=== PATIENT | male | born 1965 | race Caucasian/White ===

== ENCOUNTER → 2017-11-29 | Outpatient (REF) | payer BC ==
[2017-04-19 11:04] VITALS: BMI 30.5
[~2017-11-29] MED LIST: ASCO-201 PO; BACL-51 PO; BO30S PR; BO60S PR; CEF300 PO; CEFI400C PO; CEFU500T10 PO; CEFU500T50 PO; CEP500 PO; CEPH-13 PO; CEPH250C37 PO; CEPH500C24 PO; CHOL200074 PO; CHOL400C10 PO; CIPR-214 PO; CIPR-344 PO; CITA-128 PO; CLON-298 PO; CYAN10006 SQ; Cephalexin Monohydrate PO; DOXY-228 PO; Docusate Sodium PO; Doxycycline Hyclate PO; ESCI20TA38 PO; FAM20 PO; FERR325C2 PO; FUR20 PO; FURO-47 PO; FURO20TA19 PO; FURO40TA35 PO; Furosemide PO; GABA-549 PO; IBU800 PO; IBUP800T37 PO; IRON18TA2 PO; LEVO-85 PO; LEVO250S7 PO; LEVO250T55 PO; LOR5/325 PO; MULT-865 PO; NAT300I IV; NITR-105 PO; OMEG-36 PO; OMEP-218 PO; ONDA4TAB PO; ONDA4TAB97 PO; Oxycodone Hcl PO; PER PO; POTA20TA85 PO; POTA20TA94 PO; QUET50TA21 PO; REBIF; ROPI0.5T25 PO; ROPI5TAB PO; ROPI5TAB17 PO; SOL5 PO; SOLI10TA8 PO; TRAZ-133 PO; [UNRECOGNIZED DRUG - CODE] PO; [UNRECOGNIZED DRUG - OTHER] PO
== END ==
LOC: ZZSENDIN 18:22
PROVIDERS: ATTEND Family Medicine
DX: L89.620 Pressure ulcer of left heel, unstageable (principal); B95.1 Streptococcus, group B, as the cause of diseases classified elsewhere; B96.89 Other specified bacterial agents as the cause of diseases classified elsewhere
CPT/HCPCS: 87070; 87073; 87077; 87186

== ENCOUNTER → 2017-12-20 | Outpatient (CLI) | payer BC ==
[2017-04-19 11:04] VITALS: BMI 30.5
[~2017-12-20] MED LIST changes: +ASCO-182 PO; +CHOL100058 PO; +CYAN100058; +DIAZ-311 PO; +GADOBENATE 529MG/1ML 15ML VIAL IVP ONE; +[UNRECOGNIZED DRUG - CODE] IJ
--- NOTE | 2017-12-20 10:53 | RADIOLOGY IMAGING REPORT ---
FACILITY: [facility] - [place] PATIENT NAME: Mark Schmidt : 1965 MR: [id number] V: [id number] EXAM DATE: ORDERING PHYSICIAN: CHRISTIAN ALCANTAR TECHNOLOGIST: Location: [facility] - [place] Patient: Mark Schmidt : 1965 Visit/Account:[id number] Date of Sevice: 12/20/2017 The patient was placed on the MRI scanner and nondiagnostic localization images were obtained. Patien t could not proceed with further imaging due to involuntary muscle jerks of the lower extremity. No d iagnostic images were obtained. Report Dictated By: Noel Dunn at 12/20/2017 10:46 AM Report E-Signed By: Noel Dunn at 12/20/2017 10:49 AM WSN:[id number]
== END ==
LOC: MRI 00:55
PROVIDERS: ATTEND Surgery
DX: L97.429 Non-pressure chronic ulcer of left heel and midfoot with unspecified severity (principal)
CPT/HCPCS: 73720; A9577

== ENCOUNTER 2017-12-25 13:48 | Inpatient (IN) | payer BC ==
[2017-04-19 11:04] VITALS: Ht 185.4 cm; Wt 112.9 kg
[~2017-12-25] VITALS: Ht 185.4 cm; Wt 112.9 kg
[~2017-12-25 13:48] MED LIST changes: -GADOBENATE 529MG/1ML 15ML VIAL IVP ONE
[2017-12-25 15:31] VITALS: BP 160/103
[2017-12-25] MEDS ORDERED: QUET50TA21 PO (15:53)
[2017-12-25] MEDS ORDERED: GABA-549 PO (15:53)
[2017-12-25] MEDS ORDERED: ASCO-182 PO (15:53)
[2017-12-25] MEDS ORDERED: CYAN100058 PO (15:53)
[2017-12-25] MEDS ORDERED: CHOL10005 PO (15:53)
--- NOTE | 2017-12-25 16:19 | General Surgery Consultation ---
History of Present Illness Requesting Physician Dr. Bowens, Hospitalist Service Reason for Consult Left heel ulcer Chief Complaint Left heel ulcer History of Present Illness 82-year-old gentleman, wheelchair bound due to multiple sclerosis, has been under my care for about the last 2 weeks with a chronic left heel ulcer on the plantar surface of his heel. My suspicion is that it is a pressure ulcer but he denies this reporting that the way he sits in a wheelchair, there is not pressure on his heel. He has been experiencing increasing swelling and drainage as well as redness. I saw him in the last 2 weeks and ordered an MRI to rule out osteomyelitis but he was unable to plate the MRI because he has chronic spasms related to MS as well as possible restless leg syndrome. I premedicated him with 10 mg of oral Valium but this was not enough. We have also ordered a CT scan of his left foot but this has yet to be completed. He came into my office today and I noted increased edema and erythema around his hindfoot that was spreading. He has recently been treated with 2 courses of antibiotics, a cephalosporin, and Bactrim without improvement. I have asked the hospitalist to admit the patient for treatment of cellulitis and we can complete the CT scan while he is in the hospital and I may need to surgically debride his heel as well. History Problems: (1) Dyssomnia Status: Chronic (2) Neurogenic bladder Status: Chronic (3) Chronic edema Status: Chronic (4) Recurrent UTI Status: Chronic (5) ELIAZAR treated with BiPAP Status: Chronic (6) MS (multiple sclerosis) Status: Chronic (7) Decubitus ulcer, heel Status: Chronic (8) History of appendectomy Status: Resolved (9) History of gastric bypass Status: Resolved Home Meds Reported Medications Quetiapine Fumarate (SEROQUEL) 50 Mg Tablet, 50 MG PO QHS 12/25/17 Gabapentin (GABAPENTIN) 300 Mg Capsule, 300 MG PO DAILY, CAPSULE 12/25/17 Cyanocobalamin (Vitamin B-12) (Vitamin B-12) 1,000 Mcg Capsule, 1000 MCG PO DAILY 12/25/17 Cholecalciferol (Vitamin D3) (VITAMIN D3) 1,000 Unit Tablet, 1000 UNIT PO DAILY , TAB 12/25/17 Ascorbic Acid (VITAMIN C) 500 Mg Tablet, 1000 MG PO DAILY, TAB 12/25/17 Natalizumab (TYSABRI) 300 Mg/15 Ml Injs, 300 MG IV [id number] 10/07/13 Omeprazole Magnesium (Prilosec Otc) 20 Mg Tablet.dr, 40 MG PO QDAY, 0 Refills 07/04/11 Discontinued Reported Medications Phytonadione (VITAMIN K) Unknown Strength Ampul, IJ 12/18/17 Ascorbic Acid (VITAMIN C) Unknown Strength Tablet, PO QDAY, TAB 12/18/17 Cyanocobalamin (Vitamin B-12) (Vitamin B-12) Unknown Strength Capsule 12/18/17 Cholecalciferol (Vitamin D3) (VITAMIN D) Unknown Strength Capsule, PO QDAY, CAPSULE 12/18/17 Cefixime (SUPRAX) 400 Mg Capsule, 1 TAB PO BID, #30 04/21/17 Gabapentin (GABAPENTIN) 300 Mg Capsule, 300 MG PO DAILY, CAPSULE 01/22/17 Quetiapine Fumarate (SEROQUEL) 50 Mg Tablet, 50 MG PO QHS, #30 1 Refill Take one hour prior to intention to sleep. 10/04/15 Discontinued Scripts Diazepam (DIAZEPAM) 10 Mg Tablet, 1 TAB PO ONCE, #1 TAB 0 Refills Take 1 hour before your MRI Prov:CHRISTIAN ALCANTAR MD 12/17/17 Ondansetron Hcl (ZOFRAN) 4 Mg Tablet, 4 MG PO Q6H Y for NAUSEA/VOMITING, #10 Prov:MANOLO BERNARDO DO 01/22/17 Cefuroxime Axetil (CEFUROXIME) 500 Mg Tablet, 500 MG PO BID for infection, #14 TAB Prov:MANOLO BERNARDO DO 01/22/17 Allergies: Coded Allergies: black walnut (Verified Allergy, Intermediate, roof of mouth blisters, 01/22) ropinirole (Verified Allergy, Mild, itching, cold sweat, sob, 01/22/17) Family History: Asthma MOTHER, , Age:58 FH: colon cancer FATHER, , Age:58 Major depression MOTHER, , Age:58 Review of Systems All Systems Reviewed/Normal: Yes, Except as Noted Exam Vital Signs Vital Signs Date Time Temp Pulse Resp B/P (MAP) Pulse Ox O2 Delivery O2 Flow Rate FiO2 12/25/17 15:31 98.8 85 18 160/103 (122) 88 Room Air General Appearance: Alert, Awake, No Acute Distress, Afebrile Extremities: Other (on the plantar aspect of his left heel is a deep ulcer that measures approximately 2 cm in diameter and seems to penetrate into the underlying subcutaneous tissues but I'm not sure how deep it goes. He did not tolerate attempted scissors debridement in the office due to pain. Surrounding this are areas of more superficial skin breakdown, the entire area measuring about 7 cm long.) Assessment and Plan Problems: (1) Decubitus ulcer, heel Status: Chronic Assessment & Plan: 12/25/17: Patient is admitted to the hospitalist service for IV antibiotics to treat his cellulitis. While he is here we will get a CT scan of his left foot and potentially surgical debridement of the ulcer. We will ask the wound care team to see him as well. (2) Cellulitis Status: Chronic Assessment & Plan: IV abx per Hospitalist Service Condition Stable. Time Spent: < 30 min Venous Thromboembolism VTE Risk Physician Assess for VTE Risk: Yes Patient's VTE Risk: Low VTE Diagnostic Test 2 Days Prior to Admit: No Antithrombotics Is Pt On Any Antithrombotics?: No Problem Qualifiers (1) Decubitus ulcer, heel: Pressure ulcer stage: stage 3 Laterality: left Qualified Codes: L89.623 - Pressure ulcer of left heel, stage 3 (2) Cellulitis: Site of cellulitis: extremity Site of cellulitis of extremity: lower extremity Laterality: left Qualified Codes: L03.116 - Cellulitis of left lower limb CHRISTIAN ALCANTAR MD Dec 25, 2017 16:18
--- NOTE | 2017-12-25 16:31 | History & Physical ---
History of Present Illness Chief Complaint Worsening L-heel wound, swelling and redness despite 2 courses of oral antibiotics History of Present Illness Mr. Michael is a 52 y.o male with PMH of MS since 1985, Morbid Obesity s/p Gastric bypass in 1997 and he lost 200lbs but currently he weighs 248lbs, GERD and recurrent infections of genitourinary tract. He has been having bilateral legs swelling with infected L-heel decubitus. He has tried 2 courses of antibiotics with Cephalosporin and Bactrim but he failed the therapy and presented to Dr. Alcantar's office today with worsening of his L-leg swelling, redness and decubitus ulcer which he developed on his last admission in the hospital. I was asked by to admit the patient to the medica floor for IV antibiotics for cellulitis and possible osteomyelitis. History Home Meds Reported Medications Quetiapine Fumarate (SEROQUEL) 50 Mg Tablet, 50 MG PO QHS 12/25/17 Gabapentin (GABAPENTIN) 300 Mg Capsule, 300 MG PO DAILY, CAPSULE 12/25/17 Cyanocobalamin (Vitamin B-12) (Vitamin B-12) 1,000 Mcg Capsule, 1000 MCG PO DAILY 12/25/17 Cholecalciferol (Vitamin D3) (VITAMIN D3) 1,000 Unit Tablet, 1000 UNIT PO DAILY , TAB 12/25/17 Ascorbic Acid (VITAMIN C) 500 Mg Tablet, 1000 MG PO DAILY, TAB 12/25/17 Natalizumab (TYSABRI) 300 Mg/15 Ml Injs, 300 MG IV [id number] 10/07/13 Omeprazole Magnesium (Prilosec Otc) 20 Mg Tablet.dr, 40 MG PO QDAY, 0 Refills 07/04/11 Discontinued Reported Medications Phytonadione (VITAMIN K) Unknown Strength Ampul, IJ 12/18/17 Ascorbic Acid (VITAMIN C) Unknown Strength Tablet, PO QDAY, TAB 12/18/17 Cyanocobalamin (Vitamin B-12) (Vitamin B-12) Unknown Strength Capsule 12/18/17 Cholecalciferol (Vitamin D3) (VITAMIN D) Unknown Strength Capsule, PO QDAY, CAPSULE 12/18/17 Cefixime (SUPRAX) 400 Mg Capsule, 1 TAB PO BID, #30 04/21/17 Gabapentin (GABAPENTIN) 300 Mg Capsule, 300 MG PO DAILY, CAPSULE 01/22/17 Quetiapine Fumarate (SEROQUEL) 50 Mg Tablet, 50 MG PO QHS, #30 1 Refill Take one hour prior to intention to sleep. 10/04/15 Discontinued Scripts Diazepam (DIAZEPAM) 10 Mg Tablet, 1 TAB PO ONCE, #1 TAB 0 Refills Take 1 hour before your MRI Prov:CHRISTIAN ALCANTAR MD 12/17/17 Ondansetron Hcl (ZOFRAN) 4 Mg Tablet, 4 MG PO Q6H Y for NAUSEA/VOMITING, #10 Prov:MANOLO BERNARDO DO 01/22/17 Cefuroxime Axetil (CEFUROXIME) 500 Mg Tablet, 500 MG PO BID for infection, #14 TAB Prov:MANOLO BERNARDO DO 01/22/17 Allergies: Coded Allergies: black walnut (Verified Allergy, Intermediate, roof of mouth blisters, 01/22) ropinirole (Verified Allergy, Mild, itching, cold sweat, sob, 01/22/17) Patient History: Asthma MOTHER, , Age:58 FH: colon cancer FATHER, , Age:58 Major depression MOTHER, , Age:58 Hx Smoking: Yes (1ppd) Smoking Status: Current: Every Day Smoker Exposure to Second Hand Smoke?: Yes Caffeine Intake: Soda Caffeine/Cups Per Day: 1 Hx Alcohol Use: No When Quit Alcohol?: sunday Hx Substance Use Disorder: No Social Drug Use: Never Social Drugs: Marijuana Amount Of Social Drug/s Used: VERY RARE EXPERIMENTAL USE Review of Systems Constitutional: Other, No Fever, No Weight Gain, No Chills Neurological: No Confusion, No Weakness, No Dizziness Cardiovascular: No Chest Pain, No Palpitations Respiratory: No Shortness of Breath, No Cough, No Wheezing Gastrointestinal: No Nausea, No Vomiting, No Diarrhea, No Dysphagia, No Constipation, No Abdominal Pain Genitourinary: No Dysuria, No Hematuria Musculoskeletal: No Pain, No Sprain, No Strain, No Impaired Mobility Psychiatric: No Depression, No Anxiety Exam Vital Signs Vital Signs Date Time Temp Pulse Resp B/P (MAP) Pulse Ox O2 Delivery O2 Flow Rate FiO2 12/25/17 20:23 98.2 98 16 149/99 (116) 92 Room Air General Appearance: Alert, Awake, No Acute Distress, Afebrile, Other (obese) Neuro: No Gross deficits Eyes: PERRLA ENT: Normal Neck: No Masses Cardiovascular: Normal Rhythm & Peripheral Pulses Respiratory: No Respiratory Distress GI: Abd Soft and Non-Tender Extremities: Warm, Edema (bilateral LE, L>R with L-heels decubital ulcer) Psych: Alert & Oriented X3, Appropriate Mood & Affect Medical Decision Making Data Points Result Diagram: 12/25/17 8778 Assessment and Plan Problems: (1) Cellulitis Status: Acute Assessment & Plan: I will admit the patient to medical floor for further evaluation and management. I will start IV Unasyn 3gm q6h I will give Lasix 40mg IVP x 1 dose I will get CMP, CBC, U/A I will also get CT Scan of his L-Heel I will start Lovenox 40mg SQ qd I will resume his home medications. I will start MSO4 4mg IV q 4h as needed for pain (2) Decubitus ulcer, heel Status: Chronic Assessment & Plan: Patient could not get MRI of his Heel ulcer due to spontaneous tics I will get CT Scan of his L heel to r/o osteomyelitis. Surgical consult by Dr. Aclantar (3) GERD (gastroesophageal reflux disease) Status: Chronic Assessment & Plan: I will start Protonix 40mg po qd (4) MS (multiple sclerosis) Status: Chronic Assessment & Plan: He will continue his Tysabri 300mg IV q 4 weekly Time Spent on Plan of Care: > 30 min Copies to: CHRISTIAN RAMÍREZ MD; CHRISTIAN ALCANTAR MD Venous Thromboembolism VTE Risk Physician Assess for VTE Risk: Yes Patient's VTE Risk: Low VTE Diagnostic Test 2 Days Prior to Admit: No Antithrombotics Is Pt On Any Antithrombotics?: No Exam Sepsis Risk: No Definite Risk Problem Qualifiers (1) Decubitus ulcer, heel: Pressure ulcer stage: stage 3 Laterality: left Qualified Codes: L89.623 - Pressure ulcer of left heel, stage 3 DEVAUGHN DE LA TORRE MD Dec 25, 2017 16:31
[2017-12-25] MEDS ORDERED: IOPAMIDOL 76% 75 ML INFUS BTL 75 ML ONE (17:25)
[2017-12-25] MEDS ORDERED: NS(*) 0.9% 500 ML BAG 500 ML ONE (18:29)
[2017-12-25] MEDS ORDERED: ACETAMINOPHEN 325 MG TAB PO PRN (18:30)
[2017-12-25] MEDS: IMIPENEM/CILASTA(*) 500MG VIAL 500 MG in NS(*) 0.9% 100 ML BAG 100 ML IVPB SCH (18:32)
[2017-12-25 19:17] LABS: PLATELET COUNT, AUTOMATED 152 K/uL (150-450)
[2017-12-25 20:23] VITALS: BP 149/99
[2017-12-25] MEDS: QUEtiapine FUM 25 MG TAB PO SCH (20:54)
[2017-12-25] MEDS: FUROSEMIDE 40 MG/4 ML VIAL IVP SCH (20:55)
[2017-12-25] MEDS: MORPHINE 4 MG/ML SDV IVP PRN (20:57)
[2017-12-25] MEDS ORDERED: ADDVIAL IVPB ONE (21:00)
[2017-12-25] MEDS ORDERED: [UNRECOGNIZED DRUG - OTHER] IVPB ONE (21:00)
[2017-12-25] MEDS ORDERED: VANCOMYCIN IVPB ONE (21:00)
[2017-12-25] MEDS: GABAPENTIN 300 MG CAP PO SCH (21:00)
[2017-12-25] MEDS ORDERED: VANCOMYCIN HCL IVPB ONE (21:00)
[2017-12-25 23:54] VITALS: BP 118/85
[2017-12-26] MEDS: IMIPENEM/CILASTA(*) 500MG VIAL 500 MG in NS(*) 0.9% 100 ML BAG 100 ML IVPB SCH ×4 (00:02→18:00)
[2017-12-26 04:00] VITALS: BP 140/95
[2017-12-26] MEDS: MORPHINE 4 MG/ML SDV IVP PRN ×3 (05:51→18:04)
--- NOTE | 2017-12-26 05:53 | General Surgery Progress Note ---
Subjective Progress Notes Subjective No new complaints. He has some pain in his left heel. Physical Exam Vital Signs Date Time Temp Pulse Resp B/P (MAP) Pulse Ox O2 Delivery O2 Flow Rate FiO2 12/26/17 04:00 99.0 75 12 140/95 (110) 90 Room Air General Appearance: Alert, Awake, No Acute Distress, Afebrile Extremities: Other (I left the dressing on this morning since I just applied it last night. The dressing is C/D/I.) Result Diagram: 12/25/17185312/25/172127 Assessment and Plan Problems: (1) Decubitus ulcer, heel Status: Chronic Assessment & Plan: 12/25/17: Patient is admitted to the hospitalist service for IV antibiotics to treat his cellulitis. While he is here we will get a CT scan of his left foot and potentially surgical debridement of the ulcer. We will ask the wound care team to see him as well. 12/26/17: CT results pending; I see soft tissue swelling but I don't see any underlying calcaneal abnormalities, will await radiologist reading. Wound care to see patient today. I'll come by later today and inject the area with local anesthetic and bedside debride the deep portion of his ulcer. Continue IV abx for cellulitis. (2) Cellulitis Status: Acute Assessment & Plan: IV abx per Hospitalist Service Condition Stable. Time Spent: < 30 min Exam Sepsis Risk: No Definite Risk Problem Qualifiers (1) Decubitus ulcer, heel: Pressure ulcer stage: stage 3 Laterality: left Qualified Codes: L89.623 - Pressure ulcer of left heel, stage 3 (2) Cellulitis: Site of cellulitis: extremity Site of cellulitis of extremity: lower extremity Laterality: left Qualified Codes: L03.116 - Cellulitis of left lower limb CHRISTIAN ALCANTAR MD Dec 26, 2017 05:53
[2017-12-26 07:43] VITALS: BP 149/93
[2017-12-26] MEDS: POTASSIUM CHL 20 MEQ TABCR PO SCH ×2 (07:48→18:04)
--- NOTE | 2017-12-26 08:50 | RADIOLOGY IMAGING REPORT ---
FACILITY: [facility] - [place] PATIENT NAME: Mark Schmidt : 1965 MR: [id number] V: [id number] EXAM DATE: ORDERING PHYSICIAN: CHRISTIAN ALCANTAR TECHNOLOGIST: Location: [facility] - [place] Patient: Mark Schmidt : 1965 Visit/Account:[id number] Date of Sevice: 12/25/2017 FOOT LEFT W W/O CONTRAST COMPARISON: None. HISTORY: Ulcer on left heel, r/o osteomyelitis. TECHNIQUE: Pre and postcontrast axial CT of the left foot and ankle with coronal and sagittal reforma ts. One of the following dose optimization techniques was utilized in the performance of this exam: auto mated exposure control; adjustment of the mA and/or kV according to patient size; or use of iterative reconstruction technique. Specific details can be referenced in the facility's radiology CT exam op erational policy. CONTRAST: 75 mL Isovue 370 intravenously. FINDINGS: BONES : Along the plantar margin of the posterior calcaneal body, there is a flat focal area of both cortical and subchondral bone resorption measuring 2 x 5 x 9 mm (series 6 image 36, series 14 image 132). This is due to soft tissue defect and soft tissue edema (ulcer) and the appearance is most cons istent with focal osteomyelitis. s there is no periostitis or surrounding sclerosis and there is no e vidence of fluid in the bone. No other sites of osteomyelitis are identified in the foot or ankle. No acute appearing fractures. There is no significant arthropathy or degenerative change in the hindf oot or midfoot. Mild first MTP joint degenerative narrowing with subchondral cyst formation in the fi rst metacarpal head consistent with mild first MTP joint osteoarthritis. No other significant degener ative changes. Subtle chronic deformity of the fifth metatarsal head, which could represent a bunione tte or chronic healed fracture deformity. 8 x 13 mm os trigonum is noted. There is a chondroid lesion in the distal tibial metaphysis measuring 1.1 x 2.3 x 1.3 cm consistent with a benign enchondroma. No other bone lesions. FLUID: No appreciable effusion or drainable fluid collection. SOFT TISSUES: There is confluent, circumferential soft tissue edema in the distal lower leg, ankle, midfoot and most of the forefoot with relative sparing of the talus. Given the provided history this is most consistent with cellulitis. Several benign phleboliths in the distal lower leg soft tissues. Mild diffuse vascular calcifications. The major ankle and foot tendons are in their expected position and have normal thickness. OTHER: Negative. IMPRESSION: 1. 5 x 9 x 10 mm region of cortical and subchondral bone loss along the plantar margin of the floral artist ior left calcaneus deep to an ulcer, consistent with osteomyelitis. 2. Diffuse soft tissue edema consistent with cellulitis. Numerous phleboliths in the distal lower le g soft tissues could be related to a component of chronic venous stasis. No evidence of soft tissue a bscess. 3. Mild first MTP joint osteoarthritis. . Report Dictated By: Jeff Duarte at 12/26/2017 8:35 AM Report E-Signed By: Jeff Duarte at 12/26/2017 8:45 AM WSN:[id number]
[2017-12-26] MEDS: CHOLECALCIFEROL 1000 UNIT TAB PO SCH (09:14)
[2017-12-26] MEDS: ASCORBIC ACID 500 MG TAB PO SCH (09:14)
[2017-12-26] MEDS: GABAPENTIN 300 MG CAP PO SCH ×2 (09:15→21:24)
[2017-12-26] MEDS: ENOXAPARIN 40 MG/0.4ML SYR SC SCH (09:16)
[2017-12-26] MEDS: CYANOCOBALAMIN 1000 MCG TAB PO SCH (09:16)
[2017-12-26] MEDS: PANTOPRAZOLE SOD 40 MG TABEC PO SCH (09:16)
[2017-12-26] MEDS: FUROSEMIDE 40 MG/4 ML VIAL IVP SCH (09:16)
[2017-12-26 11:13] VITALS: BP 142/90
[2017-12-26] MEDS: VANCOMYCIN(*) 1 GM VIAL 1 GM, VANCOMYCIN HCL 0.750 GM VIAL 0.75 GM in NS(*) 0.9% 250 ML... IVPB SCH ×2 (11:35→19:08)
--- NOTE | 2017-12-26 12:58 | Hospitalist Progress Note ---
Subjective Progress Notes Subjective He has no complaints this morning. Patient Complains of: Cardiovascular: No: Chest Pain Respiratory: No: Shortness of Breath Physical Exam Vital Signs Date Time Temp Pulse Resp B/P (MAP) Pulse Ox O2 Delivery O2 Flow Rate FiO2 12/26/17 11:13 99.4 85 16 142/90 (107) 90 Room Air Intake and Output 12/27/17 07:00 Intake Total 120 ml Output Total 1600 ml Balance -1480 ml Intake Oral 120 ml Output Urine Total 1600 ml # Voids 1 General Appearance: Alert, Awake, No Acute Distress, Afebrile Cardiovascular: Regular Rate and Rhythm Respiratory: No Respiratory Distress, Clear to Auscultation GI: Soft and Non-Tender Psych: Alert & Oriented X3, Appropriate Mood & Affect Result Diagram: 12/25/174 12/25/172127 Assessment and Plan Problems: (1) Cellulitis Status: Acute Assessment & Plan: He was admitted with cellulitis to the left heel. A CT scan was ordered instead of MRI for the patient secondary to tremor. He was started on Vancomycin and Primaxin. Results of CT scan show probable osteomyelitis. Dr. Sandoval is consulted and will review CT. We will continue antibiotics. (2) Decubitus ulcer, heel Status: Chronic Assessment & Plan: Surgical consult by Dr. Sandoval (3) GERD (gastroesophageal reflux disease) Status: Chronic Assessment & Plan: He is on chronic treatment with Omeprazole. He will be placed on Protonix during admission. (4) MS (multiple sclerosis) Status: Chronic Assessment & Plan: He will continue his Tysabri 300mg IV q 4 weekly Exam Sepsis Risk: No Definite Risk Problem Qualifiers (1) Cellulitis: Site of cellulitis: extremity Site of cellulitis of extremity: lower extremity Laterality: left Qualified Codes: L03.116 - Cellulitis of left lower limb (2) Decubitus ulcer, heel: Pressure ulcer stage: stage 3 Laterality: left Qualified Codes: L89.623 - Pressure ulcer of left heel, stage 3 MYLA GILLIAM TOUCH UP EDGER Dec 26, 2017 12:58
[2017-12-26] MEDS ORDERED: NORMOSOL R SOLN(*) 1000 ML BAG 1,000 ML IV ONE (13:20)
--- NOTE | 2017-12-26 13:38 | Medical Nutrition Therapy ---
Nutrition Anthropometrics Height (Inches): 73.00 Height (Calculated Centimeters: 185.942801 Weight (Pounds): 249 Weight (Calculated Kilograms): 112.945 BMI Calculated: 30.47 Marty Nutrition Score: Adequate Marty Nutrition Risk Score: 16 Dietary Referral Nutrition Risk Factors: Nutrition Risk Comment: Physical Findings Physical Appearance: Obese BMI 30-39 Skin Appearance Skin Appearance: Edema Edema Location Modifier: Right Edema Location: Lower Extremity Type of Edema: Degree of Edema: 2+ Gastrointestinal Symptoms GI Symtoms: Tube Present: Bowel Sounds: Recent Bowel Pattern: Stool Characteristics: Nutritional Diagnosis Nutritional Risk Acuity 2: St III or IV Press Ulcer Nutritional Risk Acuity 4: Good Appetite Past Medical History: MS, gastric bypass, UTIs, GERD, anemia, MRSA Nutritional Acuity: 2-Moderate Nutrition Diagnosis: Increased Nutrient Needs Nutrition Etiology: Psychological Issues Nutrition Problem/Etiology/Sym: AEB stage 3 pressure ulcer Adjusted Energy Requirement Re: 2735 ([place] adj for obesity X 1.2 SF) Protein Requirement: 112 (1gm/kg AW) Fluid Requirement: 2800 (25gm/kg) Diet Type: 2 Gram Sodium (NA) Nutrition Intervention: Cont diet as ordered, Encourage intake Drug: Diuretics Drug/Nutrition Recommendations: Patient Taking K+ Additional Diet Restrictions: OFFER BASIL AT BRFT AND SUPPER PUT PROTEIN POWDER IN APPROPRIATE FOODS Nutrition Monitoring & Eval Nutrition Goals: Eat 75-100% Meal RD Patient Assessment Time: [address] Assessment Type: RD Assessment Patient Nutrition Acuity: 2-Moderate Follow Up Date: Dec 30, 2017 Nutritional Comment: 12/26/17 pt admitted with cellulitis lt leg with stage 3 pressure ulcer to heel. Pt on 2gm NA diet. Stays away from salt shaker but pt states eats high Na snack foods. Discussed lower Na snack choices and pt requested diet info after his surgery. Alb 3.7. Will offer wound healing nutr supplement and protein powder in appropritate foods to promote healing. Will cont to monitor and encourage intake. MICHEAL JOSE Dec 26, 2017 10:53
--- NOTE | 2017-12-26 13:48 | RADIOLOGY IMAGING REPORT ---
FACILITY: [facility] [place] PATIENT NAME: Mark Schmidt : 1965 MR: [id number] V: [id number] EXAM DATE: ORDERING PHYSICIAN: CHRISTIAN ALCANTAR TECHNOLOGIST: Location: [facility] [place] Patient: Mark Schmidt : 1965 Visit/Account:[id number] Date of Sevice: 12/26/2017 CHEST SINGLE AP Indication: Pre-op evaluation.. Comparison: 04/18/2017. Findings: Cardiomediastinal silhouette and pulmonary vessels within normal limits. There is no focal infiltrate or lobar consolidation. No pneumothorax or pleural effusion. No nodule. Mild continued scarring in the right lower lobe. Continued eventration right hemidiaphragm . Upper abdomen is unremarkable. No acute bony abnormality. IMPRESSION: 1. No acute cardiopulmonary process. Report Dictated By: Luis Ferris at 12/26/2017 1:42 PM Report E-Signed By: Luis Ferris at 12/26/2017 1:44 PM WSN:[id number]
[2017-12-26 16:14] VITALS: BP 148/94
--- NOTE | 2017-12-26 18:10 | Miscellaneous Provider Note ---
Miscellaneous Provider Note Note I reviewed the CT scan of the patient's left foot with him. There is evidence, based on the radiologist's interpretation, of osteomyelitis in the calcaneous bone just deep to the ulcer. I have recommended surgical debridement which may include removal of a portion of the calcaneous bone with closure of the soft tissues over this. The patient is nonambulatory due to his MS, he is wheelchair bound. We are going to do this this evening however not be done until after 9: 00 tonight and so we will added onto the schedule tomorrow. I have explained the surgery to the patient and I have explained the risks of potential wound breakdown, poor wound healing, and exposure of the underlying calcaneus even after debridement and it may be that he even progresses to a below-knee amputation at some point. He seems to understand this discussion. Patient is agreeable with this plan. CHRISTIAN ALCANTAR MD Dec 26, 2017 18:10
[2017-12-26 18:52] VITALS: BP 162/93
[2017-12-26] MEDS: QUEtiapine FUM 25 MG TAB PO SCH (21:24)
[2017-12-27] VITALS (12 sets, daily range): BP systolic 124–169; BP diastolic 71–98
[2017-12-27] MEDS: IMIPENEM/CILASTA(*) 500MG VIAL 500 MG in NS(*) 0.9% 100 ML BAG 100 ML IVPB SCH ×5 (00:09→23:46)
[2017-12-27] MEDS: MORPHINE 4 MG/ML SDV IVP PRN ×2 (02:39→09:11)
[2017-12-27] MEDS: VANCOMYCIN(*) 1 GM VIAL 1 GM, VANCOMYCIN HCL 0.750 GM VIAL 0.75 GM in NS(*) 0.9% 250 ML... IVPB SCH ×3 (03:02→17:01)
[2017-12-27 05:54] LABS: PLATELET COUNT, AUTOMATED 142 K/uL (150-450)
--- NOTE | 2017-12-27 06:47 | General Surgery Progress Note ---
Subjective Progress Notes Subjective No new complaints. Reports he's ready for surgery this afternoon. Physical Exam Vital Signs Date Time Temp Pulse Resp B/P (MAP) Pulse Ox O2 Delivery O2 Flow Rate FiO2 12/27/17 03:08 93 2.0 12/27/17 02:59 98.6 69 16 124/78 (93) Room Air General Appearance: Alert, Awake, No Acute Distress, Afebrile Extremities: Other (Dressing not removed since will be removed this afternoon for surgery. C/D/I.) Result Diagram: 12/27/1751612/27/17516 Assessment and Plan Problems: (1) Decubitus ulcer, heel Status: Chronic Assessment & Plan: 12/25/17: Patient is admitted to the hospitalist service for IV antibiotics to treat his cellulitis. While he is here we will get a CT scan of his left foot and potentially surgical debridement of the ulcer. We will ask the wound care team to see him as well. 12/26/17: CT results pending; I see soft tissue swelling but I don't see any underlying calcaneal abnormalities, will await radiologist reading. Wound care to see patient today. I'll come by later today and inject the area with local anesthetic and bedside debride the deep portion of his ulcer. Continue IV abx for cellulitis. 12/27/17: To OR this afternoon for surgical debridement of his left heel decubitus ulcer with osteomyelitis. Procedure, risks, alternatives, expected recovery completed without problems and questions answered. Discussed risks of poor wound healing, wound breakdown, worsening infection after surgery, need for BKA at some point in the future if his heel fails to heal after surgery. Pt wishes to proceed with this surgery. (2) Cellulitis Status: Acute Assessment & Plan: IV abx per Hospitalist Service Condition Stable. Time Spent: < 30 min Exam Sepsis Risk: No Definite Risk Problem Qualifiers (1) Decubitus ulcer, heel: Pressure ulcer stage: stage 3 Laterality: left Qualified Codes: L89.623 - Pressure ulcer of left heel, stage 3 (2) Cellulitis: Site of cellulitis: extremity Site of cellulitis of extremity: lower extremity Laterality: left Qualified Codes: L03.116 - Cellulitis of left lower limb CHRISTIAN ALCANTAR MD Dec 27, 2017 06:47
[2017-12-27] MEDS: CHOLECALCIFEROL 1000 UNIT TAB PO SCH (09:00)
[2017-12-27] MEDS: CYANOCOBALAMIN 1000 MCG TAB PO SCH (09:00)
[2017-12-27] MEDS: POTASSIUM CHL 20 MEQ TABCR PO SCH ×2 (09:00→16:41)
[2017-12-27] MEDS: ASCORBIC ACID 500 MG TAB PO SCH (09:00)
[2017-12-27] MEDS: PANTOPRAZOLE SOD 40 MG TABEC PO SCH (09:08)
--- NOTE | 2017-12-27 10:40 | Hospitalist Progress Note ---
Subjective Progress Notes Subjective He has no complaints today. Patient Complains of: Cardiovascular: No: Chest Pain Respiratory: No: Shortness of Breath Physical Exam Vital Signs Date Time Temp Pulse Resp B/P (MAP) Pulse Ox O2 Delivery O2 Flow Rate FiO2 12/27/17 08:15 89 Room Air 12/27/17 07:50 98.8 62 16 142/87 (105) 2.0 Intake and Output 12/28/17 07:00 Output Total 540 ml Balance -540 ml Output Urine Total 540 ml General Appearance: Alert, Awake, No Acute Distress, Afebrile Cardiovascular: Regular Rate and Rhythm Respiratory: No Respiratory Distress, Clear to Auscultation Psych: Alert & Oriented X3, Appropriate Mood & Affect Result Diagram: 12/27/1751612/27/17516 Assessment and Plan Problems: (1) Cellulitis Status: Acute Assessment & Plan: He was admitted with cellulitis to the left heel. A CT scan was ordered instead of MRI for the patient secondary to tremor. He was started on Vancomycin and Primaxin. Results of CT scan show osteomyelitis. Dr. Sandoval is consulted and will take the patient to OR this afternoon. We will continue antibiotics. (2) Decubitus ulcer, heel Status: Chronic Assessment & Plan: Surgical consult by Dr. Sandoval (3) GERD (gastroesophageal reflux disease) Status: Chronic Assessment & Plan: He is on chronic treatment with Omeprazole. He will be placed on Protonix during admission. (4) MS (multiple sclerosis) Status: Chronic Assessment & Plan: He will continue his Tysabri 300mg IV q 4 weekly Exam Sepsis Risk: No Definite Risk Problem Qualifiers (1) Cellulitis: Site of cellulitis: extremity Site of cellulitis of extremity: lower extremity Laterality: left Qualified Codes: L03.116 - Cellulitis of left lower limb (2) Decubitus ulcer, heel: Pressure ulcer stage: stage 3 Laterality: left Qualified Codes: L89.623 - Pressure ulcer of left heel, stage 3 MYLA GILLIAM [employer]CH [employer] CLERK Dec 27, 2017 10:40
[2017-12-27] MEDS ORDERED: ROPIVACAINE 0.5% 20 ML VIAL ONE ×3 (10:54→18:05)
[2017-12-27] MEDS ORDERED: NORMOSOL R SOLN(*) 1000 ML BAG 1,000 ML IV ONE ×2 (14:38→19:23)
[2017-12-27] MEDS ORDERED: METOCLOPRAMIDE 10 MG/2 ML SDV ONE (17:00)
[2017-12-27] MEDS ORDERED: LIDOCAINE MPF 1% 5 ML VIAL ONE (17:00)
[2017-12-27] MEDS ORDERED: DEXAMETHASONE SOD 4 MG/ML VIAL ONE (17:00)
[2017-12-27] MEDS ORDERED: PROPOFOL EMUL(*) 10MG/ML 20 ML 20 ML ONE (17:00)
[2017-12-27] MEDS ORDERED: ONDANSETRON 4 MG/2 ML VIAL ONE (17:00)
[2017-12-27] MEDS ORDERED: fentaNYL CITR 100 MCG/2 ML AMP ONE (17:01)
[2017-12-27] MEDS ORDERED: ROPIVACAINE 0.2% 20 ML VIAL ONE (18:05)
[2017-12-27] MEDS ORDERED: MIDAZOLAM 2 MG/2 ML VIAL ONE (18:29)
[2017-12-27] MEDS ORDERED: EPHEDRINE SULFATE/NS/PF 50 MG/10 ML SYRINGE ONE (18:57)
--- NOTE | 2017-12-27 19:30 | Post Operative Progress Note ---
Post Operative Progress Note Date: Dec 27, 2017 Time: 19:20 Surgeon: Jaime Dictation number: [id number] Anesthesia: GETA by Dr. Jurado Pre-Op Diagnosis: Chronic left heel decubitus ulcer Post-Op Diagnosis: BRYANT Findings: C/W dx Procedure(s): Debridement of left heel ulcer including skin and subcutaneous fat, 9 cm sq total Specimen Removed:(May be N/A): None Complications: None Fluids: See anesthesia record Estimated Blood Loss: Minimal Date OP Note Dictated: Dec 27, 2017 Time OP Note Dictated: 19:21 CHRISTIAN ALCANTAR MD Dec 27, 2017 19:30
[2017-12-27] MEDS ORDERED: NS 0.9% IRRIGATION 1000ML PLCT IR ONE (19:31)
--- NOTE | 2017-12-27 20:38 | OPERATIVE REPORT 1 ---
EVENT DATE: December 27, 2017 SURGEON: Matias Sandoval MD ANESTHESIOLOGIST: Matias Jurado MD ANESTHESIA: General endotracheal anesthesia. PREOPERATIVE DIAGNOSIS Chronic left heel decubitus ulcer. POSTOPERATIVE DIAGNOSIS Chronic left heel decubitus ulcer. PROCEDURE PERFORMED Debridement of left heel ulcer including necrotic subcutaneous fat, total 9 cm2 were debrided between two separate ulcers. COMPLICATIONS None. CONDITION Stable. BLOOD LOSS Minimal. INDICATIONS This is a 52-year-old gentleman who has multiple sclerosis and is wheelchair bound. He has had an ulcer on his left heel for about the last six months. He has been getting wound care at [facility], but they have not had success at getting it to heal. They referred him to me because they felt like it was getting worse, and they were looking for other options for advancing his wound healing. The last couple times I saw him, I was concerned that there was necrotic tissue in the middle of the wound, and his foot was very edematous and had some erythema. He had been recently treated on a cephalosporin and then separately Bactrim, but this failed to improve his foot. I tried to get an MRI to look for osteomyelitis, but he was unable to keep his foot still for the procedure as he has spasms related to his MS. His cellulitis was worsening, so he was admitted to the hospital, and then a CT scan was obtained which was suspicious for osteomyelitis in the calcaneus bone. I consented him for wound debridement and exploration and possible partial calcanectomy if needed. DESCRIPTION OF PROCEDURE The patient brought to the operating room and placed supine on the operating table. General endotracheal anesthesia was administered. Dr. Jurado performed a popliteal block, and then the patient was placed in the right lateral decubitus position on the table. He was secured to the table with a agudelo bag, tape, and a security strap, and then his left foot, ankle, and calf were prepped and draped in a sterile fashion. Timeout was completed. I inspected his heel. He has areas of superficial ulceration all through the heel and up the medial and lateral aspects of his heel, but not to the level of either malleoli. On the center of the plantar surface of his heel and on the lateral aspect of his heel are areas of deeper ulcerations with central necrotic tissue. I initially had the tourniquet inflated in preparation for a bigger procedure, but then I had the anesthesiologist let air out of the tourniquet so I could see the tissue bleeding as I debrided. I debrided all the necrotic tissue down to bleeding tissue. I did not get down to bone, so I stopped at this point. The only tissue that I debrided was subcutaneous fat that was necrotic. There was no muscle or fascia involved in this debridement. The total area of debridement was about 9 cm2. I then packed each of these deeper ulcers with moist 2 x 2 gauze, and the whole heel was covered with dry 4 x 4 gauze and wrapped in Kerlix. His foot and ankle were wrapped in Kerlix and Ander wrap. He tolerated the procedure without any problems. He was awakened and extubated and transported to the recovery room in stable condition. LUZ
[2017-12-27] MEDS: QUEtiapine FUM 25 MG TAB PO SCH (20:55)
[2017-12-27] MEDS ORDERED: GABAPENTIN 300 MG CAP PO SCH (21:00)
[2017-12-28 01:00] VITALS: BP 126/67
[2017-12-28 02:00] VITALS: BP 120/65
[2017-12-28 03:00] VITALS: BP 122/65
[2017-12-28 04:00] VITALS: BP 124/71
[2017-12-28] MEDS: VANCOMYCIN(*) 1 GM VIAL 1 GM, VANCOMYCIN HCL 0.750 GM VIAL 0.75 GM in NS(*) 0.9% 250 ML... IVPB SCH (04:25)
[2017-12-28] MEDS: MORPHINE 4 MG/ML SDV IVP PRN ×3 (04:26→13:08)
[2017-12-28] MEDS: IMIPENEM/CILASTA(*) 500MG VIAL 500 MG in NS(*) 0.9% 100 ML BAG 100 ML IVPB SCH ×2 (06:12→12:12)
--- NOTE | 2017-12-28 06:38 | General Surgery Progress Note ---
Subjective Progress Notes Subjective No compaints this morning. Physical Exam Vital Signs Date Time Temp Pulse Resp B/P (MAP) Pulse Ox O2 Delivery O2 Flow Rate FiO2 12/28/17 04:00 124/71 (88) 12/27/17 23:50 97.7 63 18 93 Room Air 12/27/17 20:15 1.0 General Appearance: Alert, Awake, No Acute Distress, Afebrile Extremities: Other (Dressing in place and intact.) Result Diagram: 12/27/17 0517 12/27/17 0517 Assessment and Plan Problems: (1) Decubitus ulcer, heel Status: Chronic Assessment & Plan: 12/25/17: Patient is admitted to the hospitalist service for IV antibiotics to treat his cellulitis. While he is here we will get a CT scan of his left foot and potentially surgical debridement of the ulcer. We will ask the wound care team to see him as well. 12/26/17: CT results pending; I see soft tissue swelling but I don't see any underlying calcaneal abnormalities, will await radiologist reading. Wound care to see patient today. I'll come by later today and inject the area with local anesthetic and bedside debride the deep portion of his ulcer. Continue IV abx for cellulitis. 12/27/17: To OR this afternoon for surgical debridement of his left heel decubitus ulcer with osteomyelitis. Procedure, risks, alternatives, expected recovery completed without problems and questions answered. Discussed risks of poor wound healing, wound breakdown, worsening infection after surgery, need for BKA at some point in the future if his heel fails to heal after surgery. Pt wishes to proceed with this surgery. 12/28/17: Left foot ulcers debrided in OR last night. I debrided necrotic tissue down to bleeding tissue. I did not get down to bone and it seemed that the bone was still covered, in spite of the CT findings. Will see if wound care team can apply a wound vac to these ulcers and start some granulation tissue formation. Would recommend continuing IV abx until we can see that there is granulation tissue formation and these ulcers appear to be healing without signs of infection. Keeping his leg elevated and the diuretic are also melvin to decreasing the edema and his foot is almost down to normal dimensions which will help this to heal. I fear that d/c to home will lead to recurrence of the conditions that prevented this from healing in the first place. He seems to be a fairly active charlie and is in his wheelchair most of the day which leads to significant edema and likely inhibited healing. May require ECF stay to facilitate continued leg elevation, wound care, IV abx. (2) Cellulitis Status: Resolved Assessment & Plan: IV abx per Hospitalist Service Condition Stable. Time Spent: < 30 min Exam Sepsis Risk: No Definite Risk Problem Qualifiers (1) Decubitus ulcer, heel: Pressure ulcer stage: stage 3 Laterality: left Qualified Codes: L89.623 - Pressure ulcer of left heel, stage 3 (2) Cellulitis: Site of cellulitis: extremity Site of cellulitis of extremity: lower extremity Laterality: left Qualified Codes: L03.116 - Cellulitis of left lower limb CHRISTIAN ALCANTAR MD Dec 28, 2017 06:38
[2017-12-28 07:20] VITALS: BP 133/88
[2017-12-28] MEDS: POTASSIUM CHL 20 MEQ TABCR PO SCH (08:36)
[2017-12-28] MEDS: ASCORBIC ACID 500 MG TAB PO SCH (08:40)
[2017-12-28] MEDS: CHOLECALCIFEROL 1000 UNIT TAB PO SCH (08:40)
[2017-12-28] MEDS: ENOXAPARIN 40 MG/0.4ML SYR SC SCH (08:41)
[2017-12-28] MEDS: CYANOCOBALAMIN 1000 MCG TAB PO SCH (08:41)
[2017-12-28] MEDS: PANTOPRAZOLE SOD 40 MG TABEC PO SCH (08:41)
[2017-12-28 12:09] VITALS: BP 147/103
--- NOTE | 2017-12-28 12:13 | Hospitalist Progress Note ---
Subjective Progress Notes Subjective He has no complaints this morning. Patient Complains of: Cardiovascular: No: Chest Pain Respiratory: No: Shortness of Breath Physical Exam Vital Signs Date Time Temp Pulse Resp B/P (MAP) Pulse Ox O2 Delivery O2 Flow Rate FiO2 12/28/17 07:20 97.7 56 18 133/88 (103) 89 Room Air 12/27/17 20:15 1.0 Intake and Output 12/29/17 07:00 Intake Total 516 ml Output Total 500 ml Balance 16 ml Intake Oral 400 ml IV Total 116 ml Output Urine Total 500 ml General Appearance: Alert, Awake, No Acute Distress, Afebrile Cardiovascular: Regular Rate and Rhythm Respiratory: No Respiratory Distress, Clear to Auscultation GI: Soft and Non-Tender Psych: Alert & Oriented X3, Appropriate Mood & Affect Result Diagram: 12/27/1751612/27/17516 Assessment and Plan Problems: (1) Cellulitis Status: Resolved Assessment & Plan: He was admitted with cellulitis to the left heel. A CT scan was ordered instead of MRI for the patient secondary to tremor. He was started on Vancomycin and Primaxin. Results of CT scan show osteomyelitis. Dr. Sandoval is consulted and took patient to OR 12/27. He debrided the wound. We will continue antibiotics. PICC line will be placed today for continual IV antibiotics. (2) Decubitus ulcer, heel Status: Chronic Assessment & Plan: Surgical consult by Dr. Sandoval (3) GERD (gastroesophageal reflux disease) Status: Chronic Assessment & Plan: He is on chronic treatment with Omeprazole. He will be placed on Protonix during admission. (4) MS (multiple sclerosis) Status: Chronic Assessment & Plan: He will continue his Tysabri 300mg IV q 4 weekly Exam Sepsis Risk: No Definite Risk Problem Qualifiers (1) Cellulitis: Site of cellulitis: extremity Site of cellulitis of extremity: lower extremity Laterality: left Qualified Codes: L03.116 - Cellulitis of left lower limb (2) Decubitus ulcer, heel: Pressure ulcer stage: stage 3 Laterality: left Qualified Codes: L89.623 - Pressure ulcer of left heel, stage 3 MYLA GILLIAM SALVAGE CUTTER Dec 28, 2017 12:13
--- NOTE | 2017-12-28 13:51 | Hospitalist Depart ---
Discharge Summary Reason for Hosp/Final Diag: (1) Cellulitis Status: Resolved Hospital Course & Plan: He was admitted with cellulitis to the left heel. A CT scan was ordered instead of MRI for the patient secondary to tremor. He was started on Vancomycin and Primaxin. Results of CT scan show osteomyelitis. Dr. Alcantra is consulted and took patient to OR 12/27. He debrided the wound. We will continue antibiotics. PICC line was placed today for continual IV antibiotics. (2) Decubitus ulcer, heel Status: Chronic Hospital Course & Plan: Surgical consult by Dr. Alcantar (3) GERD (gastroesophageal reflux disease) Status: Chronic Hospital Course & Plan: He is on chronic treatment with Omeprazole. He will be placed on Protonix during admission. (4) MS (multiple sclerosis) Status: Chronic Hospital Course & Plan: He will continue his Tysabri 300mg IV q 4 weekly Departure Latest Vital Signs Vital Signs 12/27/17 12/28/17 20:15 12:09 Temp 98.0 Pulse 65 Resp 18 B/P (MAP) 147/103 (118) Pulse Ox 89 O2 Delivery Room Air O2 Flow Rate 1.0 Weight (Pounds): 249 Weight (Ounces): 5.0 Result Diagram: 12/27/1751612/27/17516 Condition: Improved [facility] Follow Up For: PT For Strengthening Discharge Instructions Home Meds Reported Medications Quetiapine Fumarate (SEROQUEL) 50 Mg Tablet, 50 MG PO QHS 12/25/17 Gabapentin (GABAPENTIN) 300 Mg Capsule, 300 MG PO DAILY, CAPSULE 12/25/17 Cyanocobalamin (Vitamin B-12) (Vitamin B-12) 1,000 Mcg Capsule, 1000 MCG PO DAILY 12/25/17 Cholecalciferol (Vitamin D3) (VITAMIN D3) 1,000 Unit Tablet, 1000 UNIT PO DAILY , TAB 12/25/17 Ascorbic Acid (VITAMIN C) 500 Mg Tablet, 1000 MG PO DAILY, TAB 12/25/17 Natalizumab (TYSABRI) 300 Mg/15 Ml Injs, 300 MG IV [id number] 10/07/13 Omeprazole Magnesium (Prilosec Otc) 20 Mg Tablet., 40 MG PO QDAY, 0 Refills 07/04/11 Discontinued Reported Medications Phytonadione (VITAMIN K) Unknown Strength Ampul, IJ 12/18/17 Ascorbic Acid (VITAMIN C) Unknown Strength Tablet, PO QDAY, TAB 12/18/17 Cyanocobalamin (Vitamin B-12) (Vitamin B-12) Unknown Strength Capsule 12/18/17 Cholecalciferol (Vitamin D3) (VITAMIN D) Unknown Strength Capsule, PO QDAY, CAPSULE 12/18/17 Discontinued Scripts Diazepam (DIAZEPAM) 10 Mg Tablet, 1 TAB PO ONCE, #1 TAB 0 Refills Take 1 hour before your MRI Prov:CHRISTIAN ALCANTAR MD 12/17/17 Diet: Regular Activity: As Tolerated Venous Thromboembolism Antithrombotics Is Pt On Any Antithrombotics?: No Problem Qualifiers (1) Cellulitis: Site of cellulitis: extremity Site of cellulitis of extremity: lower extremity Laterality: left Qualified Codes: L03.116 - Cellulitis of left lower limb (2) Decubitus ulcer, heel: Pressure ulcer stage: stage 3 Laterality: left Qualified Codes: L89.623 - Pressure ulcer of left heel, stage 3 MYLA GILLIAM [employer] Dec 28, 2017 13:51
--- NOTE | 2017-12-28 15:54 | RADIOLOGY IMAGING REPORT ---
[place] [facility] [place]IENT NAME: Mark Schmidt : 1965 MR: [id number] V: [id number] EXAM DATE: ORDERING PHYSICIAN: MYLA GILLIAM TECHNOLOGIST: [facility] [place] Patient: Mark Scmhidt : 1965 Visit/Account:[id number] Date of Sevice: 12/28/2017 Exam type: PICC LINE INSERTION, PICC LINE PLACEMENT History: LONG USE OF ANTIBIOTICS Comparison: AP chest December 26, 2017. Findings: Informed consent was obtained. The patient's left arm was prepped and draped in usual sterile fashio n. Local anesthesia was accomplished with 1% lidocaine. Utilizing both sonographic and fluoroscopic guidance a 43 cm long trimmed 5 Bruneian double lumen power PICC was inserted via the patent left basi lic vein with the distal tip projecting superior vena cava. Both lumens of power PICC were flushed w ith 5 mL of saline flush. Proximal portion PICC line was adhered the patient's arm the sterile dress ing. The sonographic images were saved to PACS. The procedure was accomplished without apparent com plication. The fluoroscopy dose area product was 127.27 micro-Mullins per meter squared. Incidentally noted on the final spot image is a thick band of atelectasis in the right lung base IMPRESSION: 1. Successful placement of a 43 cm long trimmed 5 Bruneian double lumen power PICC inserted via the pa tent left basilic vein with the distal tip resting in superior vena cava Incidentally noted is a thick band of atelectasis in the right lung base Report Dictated By: Jes Perez MD at 12/28/2017 3:48 PM Report E-Signed By: Jes Perez MD at 12/28/2017 3:50 PM WSN:[email or web address]
--- NOTE | 2017-12-28 15:55 | RADIOLOGY IMAGING REPORT ---
FACILITY: [facility] PATIENT NAME: Mark Schmidt : 1965 MR: [id number] V: [id number] EXAM DATE: ORDERING PHYSICIAN: MYLA GILLIAM TECHNOLOGIST: Location: [facility] [place] Patient: Mark Schmidt : 1965 Visit/Account:[id number] Date of Sevice: 12/28/2017 Exam type: PICC LINE INSERTION, PICC LINE PLACEMENT History: LONG USE OF ANTIBIOTICS Comparison: AP chest December 26, 2017. Findings: Informed consent was obtained. The patient's left arm was prepped and draped in usual sterile fashio n. Local anesthesia was accomplished with 1% lidocaine. Utilizing both sonographic and fluoroscopic guidance a 43 cm long trimmed 5 Peruvian double lumen power PICC was inserted via the patent left basi lic vein with the distal tip projecting superior vena cava. Both lumens of power PICC were flushed w ith 5 mL of saline flush. Proximal portion PICC line was adhered the patient's arm the sterile dress ing. The sonographic images were saved to PACS. The procedure was accomplished without apparent com plication. The fluoroscopy dose area product was 127.27 micro-Mullins per meter squared. Incidentally noted on the final spot image is a thick band of atelectasis in the right lung base IMPRESSION: 1. Successful placement of a 43 cm long trimmed 5 Peruvian double lumen power PICC inserted via the pa tent left basilic vein with the distal tip resting in superior vena cava Incidentally noted is a thick band of atelectasis in the right lung base Report Dictated By: Jes Perez MD at 12/28/2017 3:48 PM Report E-Signed By: Jes Perez MD at 12/28/2017 3:50 PM WSN:[id number]
== END 2017-12-28 14:30 | DRG 570 ==
LOC: MED 14:57
PROVIDERS: ADMIT Specialist; ATTEND Specialist
PROC: 0JDR3ZZ Extraction of Left Foot Subcutaneous Tissue and Fascia, Percutaneous Approach (ICD-10-PCS; 2017-12-26)
PROC: 0JBR0ZZ Excision of Left Foot Subcutaneous Tissue and Fascia, Open Approach (ICD-10-PCS; principal; 2017-12-27 18:14)
PROC: 0JDR3ZZ Extraction of Left Foot Subcutaneous Tissue and Fascia, Percutaneous Approach (ICD-10-PCS; 2017-12-28)
PROC: 02HV33Z Insertion of Infusion Device into Superior Vena Cava, Percutaneous Approach (ICD-10-PCS; 2017-12-28)
PROC: B548ZZA Ultrasonography of Superior Vena Cava, Guidance (ICD-10-PCS; 2017-12-28)
DX: L03.116 Cellulitis of left lower limb (principal); L89.623 Pressure ulcer of left heel, stage 3; M86.9 Osteomyelitis, unspecified; K21.9 Gastro-esophageal reflux disease without esophagitis; G35 Multiple sclerosis; F17.210 Nicotine dependence, cigarettes, uncomplicated; G25.81 Restless legs syndrome; G47.9 Sleep disorder, unspecified; N31.9 Neuromuscular dysfunction of bladder, unspecified; Z98.84 Bariatric surgery status; Z88.8 Allergy status to other drugs, medicaments and biological substances; Z99.3 Dependence on wheelchair; Z87.440 Personal history of urinary (tract) infections
CPT/HCPCS: 36415; 36569; 71045; 76937; 80202; 81001; 82040; 82247; 82310; 82374; 82435; 82565; 82947; 84075; 84132; 84155; 84295; 84450; 84460; 84520; 85025; 97161; 97605; C1751; J0743; J1100; J1650; J1940; J2001; J2250; J2270; J2405; J2704; J2765; J2795; J3010; J3370; J7040; J7050; Q9967

== ENCOUNTER 2017-12-28 14:53 | Inpatient (IN) | payer BC ==
[~2017-12-28] VITALS: Ht 185.4 cm; Wt 115.0 kg
[~2017-12-28 14:53] MED LIST changes: +CHOL10005 PO; +CYAN100058 PO
--- NOTE | 2017-12-28 15:06 | ECF H&P BLANK ---
F H&P UPDATE History of Present Illness Chief Complaint Worsening L-heel wound, swelling and redness despite 2 courses of oral antibiotics History of Present Illness Mr. Michael is a 52 y.o male with PMH of MS since 1985, Morbid Obesity s/p Gastric bypass in 1997 and he lost 200lbs but currently he weighs 248lbs, GERD and recurrent infections of genitourinary tract. He has been having bilateral legs swelling with infected L-heel decubitus. He has tried 2 courses of antibiotics with Cephalosporin and Bactrim but he failed the therapy and presented to Dr. Alcantar's office today with worsening of his L-leg swelling, redness and decubitus ulcer which he developed on his last admission in the hospital. I was asked by to admit the patient to the medica floor for IV antibiotics for cellulitis and possible osteomyelitis. History Home Meds Reported Medications Quetiapine Fumarate (SEROQUEL) 50 Mg Tablet, 50 MG PO QHS 12/25/17 Gabapentin (GABAPENTIN) 300 Mg Capsule, 300 MG PO DAILY, CAPSULE 12/25/17 Cyanocobalamin (Vitamin B-12) (Vitamin B-12) 1,000 Mcg Capsule, 1000 MCG PO DAILY 12/25/17 Cholecalciferol (Vitamin D3) (VITAMIN D3) 1,000 Unit Tablet, 1000 UNIT PO DAILY , TAB 12/25/17 Ascorbic Acid (VITAMIN C) 500 Mg Tablet, 1000 MG PO DAILY, TAB 12/25/17 Natalizumab (TYSABRI) 300 Mg/15 Ml Injs, 300 MG IV [id number] 10/07/13 Omeprazole Magnesium (Prilosec Otc) 20 Mg Tablet., 40 MG PO QDAY, 0 Refills 07/04/11 Discontinued Reported Medications Phytonadione (VITAMIN K) Unknown Strength Ampul, IJ 12/18/17 Ascorbic Acid (VITAMIN C) Unknown Strength Tablet, PO QDAY, TAB 12/18/17 Cyanocobalamin (Vitamin B-12) (Vitamin B-12) Unknown Strength Capsule 12/18/17 Cholecalciferol (Vitamin D3) (VITAMIN D) Unknown Strength Capsule, PO QDAY, CAPSULE 12/18/17 Cefixime (SUPRAX) 400 Mg Capsule, 1 TAB PO BID, #30 04/21/17 Gabapentin (GABAPENTIN) 300 Mg Capsule, 300 MG PO DAILY, CAPSULE 01/22/17 Quetiapine Fumarate (SEROQUEL) 50 Mg Tablet, 50 MG PO QHS, #30 1 Refill Take one hour prior to intention to sleep. 10/04/15 Discontinued Scripts Diazepam (DIAZEPAM) 10 Mg Tablet, 1 TAB PO ONCE, #1 TAB 0 Refills Take 1 hour before your MRI Prov:CHRISTIAN ALCANTAR MD 12/17/17 Ondansetron Hcl (ZOFRAN) 4 Mg Tablet, 4 MG PO Q6H Y for NAUSEA/VOMITING, #10 Prov:MANOLO BERNARDO DO 01/22/17 Cefuroxime Axetil (CEFUROXIME) 500 Mg Tablet, 500 MG PO BID for infection, #14 TAB Prov:MANOLO BERNARDO DO 01/22/17 Allergies: Coded Allergies: black walnut (Verified Allergy, Intermediate, roof of mouth blisters, 01/22) ropinirole (Verified Allergy, Mild, itching, cold sweat, sob, 01/22/17) Patient History: Asthma MOTHER, , Age:58 FH: colon cancer FATHER, , Age:58 Major depression MOTHER, , Age:58 Hx Smoking: Yes (1ppd) Smoking Status: Current: Every Day Smoker Exposure to Second Hand Smoke?: Yes Caffeine Intake: Soda Caffeine/Cups Per Day: 1 Hx Alcohol Use: No When Quit Alcohol?: sunday Hx Substance Use Disorder: No Social Drug Use: Never Social Drugs: Marijuana Amount Of Social Drug/s Used: VERY RARE EXPERIMENTAL USE Review of Systems Constitutional: Other, No Fever, No Weight Gain, No Chills Neurological: No Confusion, No Weakness, No Dizziness Cardiovascular: No Chest Pain, No Palpitations Respiratory: No Shortness of Breath, No Cough, No Wheezing Gastrointestinal: No Nausea, No Vomiting, No Diarrhea, No Dysphagia, No Constipation, No Abdominal Pain Genitourinary: No Dysuria, No Hematuria Musculoskeletal: No Pain, No Sprain, No Strain, No Impaired Mobility Psychiatric: No Depression, No Anxiety Exam Vital Signs Vital Signs Date Time Temp Pulse Resp B/P (MAP) Pulse Ox O2 Delivery O2 Flow Rate FiO2 12/25/17 20:23 98.2 98 16 149/99 (116) 92 Room Air General Appearance: Alert, Awake, No Acute Distress, Afebrile, Other (obese) Neuro: No Gross deficits Eyes: PERRLA ENT: Normal Neck: No Masses Cardiovascular: Normal Rhythm & Peripheral Pulses Respiratory: No Respiratory Distress GI: Abd Soft and Non-Tender Extremities: Warm, Edema (bilateral LE, L>R with L-heels decubital ulcer) Psych: Alert & Oriented X3, Appropriate Mood & Affect Medical Decision Making Data Points Result Diagram: 12/25/17 2546 Assessment and Plan Problems: (1) Cellulitis Status: Acute Assessment & Plan: I will admit the patient to medical floor for further evaluation and management. I will start IV Unasyn 3gm q6h I will give Lasix 40mg IVP x 1 dose I will get CMP, CBC, U/A I will also get CT Scan of his L-Heel I will start Lovenox 40mg SQ qd I will resume his home medications. I will start MSO4 4mg IV q 4h as needed for pain (2) Decubitus ulcer, heel Status: Chronic Assessment & Plan: Patient could not get MRI of his Heel ulcer due to spontaneous tics I will get CT Scan of his L heel to r/o osteomyelitis. Surgical consult by Dr. Alcantar (3) GERD (gastroesophageal reflux disease) Status: Chronic Assessment & Plan: I will start Protonix 40mg po qd (4) MS (multiple sclerosis) Status: Chronic Assessment & Plan: He will continue his Tysabri 300mg IV q 4 weekly Time Spent on Plan of Care: > 30 min Copies to: CHRISTIAN RAMÍREZ MD; CHRISTIAN ALCANTAR MD Venous Thromboembolism VTE Risk Physician Assess for VTE Risk: Yes Patient's VTE Risk: Low VTE Diagnostic Test 2 Days Prior to Admit: No Antithrombotics Is Pt On Any Antithrombotics?: No Exam Sepsis Risk: No Definite Risk Problem Qualifiers (1) Decubitus ulcer, heel: Pressure ulcer stage: stage 3 Laterality: left Qualified Codes: L89.623 - Pressure ulcer of left heel, stage 3 DEVAUGHN DE LA TORRE MD Dec 25, 2017 16:31 <Electronically signed by DEVAUGHN DE LA TORRE MD> D/ 99 30 30 UZAIR/DIANA CC: CHRISTIAN RAMÍREZ MD; CHRISTIAN ALCANTAR MD, [facility] Dec 28, 2017 15:06
[2017-12-28 15:10] VITALS: BP 134/87
[2017-12-28] MEDS ORDERED: IMIPENEM/CILASTA(*) 500MG VIAL 500 MG in NS(*) 0.9% 100 ML BAG 100 ML IVPB SCH (16:25)
[2017-12-28] MEDS ORDERED: VANCOMYCIN(*) 1 GM VIAL 1 GM, VANCOMYCIN HCL 0.750 GM VIAL 0.75 GM in NS(*) 0.9% 250 ML... IVPB SCH (16:25)
[2017-12-28] MEDS: VANCOMYCIN(*) 1 GM VIAL 1 GM, VANCOMYCIN HCL 0.750 GM VIAL 0.75 GM in NS(*) 0.9% 250 ML... IVPB SCH (17:04)
[2017-12-28] MEDS: MORPHINE 4 MG/ML SDV IVP PRN ×2 (17:26→21:59)
[2017-12-28] MEDS: POTASSIUM CHL 20 MEQ TABCR PO SCH (17:52)
[2017-12-28] MEDS: IMIPENEM/CILASTA(*) 500MG VIAL 500 MG in NS(*) 0.9% 100 ML BAG 100 ML IVPB SCH (18:42)
[2017-12-28 19:13] VITALS: Ht 185.4 cm; Wt 115.0 kg
--- NOTE | 2017-12-28 19:25 | Medical Nutrition Therapy ---
Nutrition Anthropometrics Height (Inches): 73.00 Height (Calculated Centimeters: 185.548797 Weight (Pounds): 249 Weight (Calculated Kilograms): 113.086 BMI Calculated: 32.85 Marty Nutrition Score: Adequate Marty Nutrition Risk Score: 14 Dietary Referral Nutrition Risk Factors: Non-Healing Wound Nutrition Risk Comment: Physical Findings Physical Appearance: Obese BMI 30-39 Skin Appearance Skin Appearance: Edema Edema Location Modifier: Edema Location: Type of Edema: Degree of Edema: Gastrointestinal Symptoms GI Symtoms: Tube Present: Bowel Sounds: Recent Bowel Pattern: Stool Characteristics: Nutrition/Food History Special Diet Prior Admit Good Alcohol Use: Currently Nutritional Diagnosis Nutritional Risk Acuity 2: Abcess/Non-Healing Wound Nutritional Risk Acuity 4: Good Appetite Past Medical History: MS, gastric bypass, UTIs, GERD, anemia, MRSA Nutritional Acuity: 2-Moderate Nutrition Diagnosis: Increased Nutrient Needs Nutrition Etiology: Physiological Causes Nutrition Problem/Etiology/Sym: Increased Nutrient Needs related to increased demand for nutrients secondary to wound healing and infection AEB low albumin status and non heeling wound indicating increased stress and increased metabolic needs. Energy Requirement: 2735 (Antelope-Corrigan adj for obesity X 1.2 SF) Protein Requirement: 112 (1gm/kg AW) Fluid Requirement: 2800 (25gm/kg) Diet Type: Diet as Tolerated EVI/REG Nutrition Intervention: Cont diet as ordered Do Not Serve Any of the Follow: Spinach Additional Diet Restrictions: OFFER BASIL AT BRFT AND SUPPER PUT PROTEIN POWDER IN APPROPRIATE FOODS Nutrition Monitoring & Eval Nutrition Goals: Eat 75-100% Meal RD Patient Assessment Time: [address] Assessment Type: RD Assessment Patient Nutrition Acuity: 2-Moderate Follow Up Date: January 08, 2018 Nutritional Comment: 12/28/17 Pt admitted with cellulitis and non healing decubitis ulcer (stage 3) on left heel and transfered to [facility]. Pt has hx of MS and gastric bypass. Class I obesity with BMI of 32.85. Alb 2.7. Receiving EVI and consuming 100% of meals. Will offer wound healing nutritional supplement and protein powder in appropritate foods to promote healing. Will cont to monitor and encourage intake. LAURIE JEROME Dec 28, 2017 19:25
[2017-12-28] MEDS: QUEtiapine FUM 25 MG TAB PO SCH (21:57)
[2017-12-28] MEDS: GABAPENTIN 300 MG CAP PO SCH (21:57)
[2017-12-29] MEDS: IMIPENEM/CILASTA(*) 500MG VIAL 500 MG in NS(*) 0.9% 100 ML BAG 100 ML IVPB SCH ×4 (00:13→19:38)
[2017-12-29] MEDS: MORPHINE 4 MG/ML SDV IVP PRN ×4 (02:12→23:56)
[2017-12-29] MEDS: VANCOMYCIN(*) 1 GM VIAL 1 GM, VANCOMYCIN HCL 0.750 GM VIAL 0.75 GM in NS(*) 0.9% 250 ML... IVPB SCH ×2 (05:06→17:26)
[2017-12-29 08:00] VITALS: BP 177/97
[2017-12-29] MEDS: CHOLECALCIFEROL 1000 UNIT TAB PO SCH (09:01)
[2017-12-29] MEDS: PANTOPRAZOLE SOD 40 MG TABEC PO SCH (09:01)
[2017-12-29] MEDS: ASCORBIC ACID 500 MG TAB PO SCH (09:01)
[2017-12-29] MEDS: POTASSIUM CHL 20 MEQ TABCR PO SCH ×2 (09:01→17:25)
[2017-12-29] MEDS: ENOXAPARIN 40 MG/0.4ML SYR SC SCH (09:01)
[2017-12-29] MEDS: CYANOCOBALAMIN 1000 MCG TAB PO SCH (09:01)
--- NOTE | 2017-12-29 13:06 | PT ECF NOTE ---
Type of Note: Initial Note Primary Medical Diagnosis: Cellulitis, s/p I&D of L) heel ulcers Physical Therapy Evaluation Date: 12/28/17 SUBJECTIVE: Prior Hospitalization: [facility] 12/25/17-12/28/17 Prior Level of Function: Pt utilizes w/c for all mobility and completes stand pivot transfers to/from various surfaces independently, he reports that he has been non-ambulatory x5 years Prior Living Status: Single level house (w/c accessible), Alone Community Services: Independent Home Accessibility: All needs on one level Equipment Owned: Front wheeled walker, Wheelchair, BSC Medical Complications/Past Medical History: MS (diagnosed at age 20), see EMR for details Psychosocial Support: Unsure Pain Scale (0-10): 3/10, L) heep OBJECTIVE: Strength: Right Lower Extremity: DF: <3/5 Knee flexion: 4/5 Knee extension: <3/5 Hip flexion: <3/5 Left Lower Extremity: DF: <3/5 (pt reports significant foot drop on this side) Knee flexion: 4/5 Knee extension: <3/5 Hip flexion: <3/5 ROM: Flexor spasticity present in bilateral LEs, limiting knee extension Sensation: Pt reports WNL Other Neuro findings: Consistent with diagnosis of MS Weight bearing: Per Dr. Sandoval, pt is WBAT through forefoot of the L) LE, NWB through heel on L) LE Bed Mobility: SBA supine to sit, Guillermo sit to supine with use of bed rail and HOB raise Transfers: Guillermo x1-2 for stand pivot to w/c with no AD CGA slide board transfer from w/c to bed Gait: n/a Stairs: n/a ASSESSMENT: PT ECF eval complete. Pt cleared to weightbear through the forefoot only on the L) foot. He required Guillermo x1-2 for stand pivot transfer from bed to w/c. It took the patient multiple attempts to rise to stand, but he was able to stand while weightbearing only through the L) forefoot despite spasticity. PT instructed patient in slideboard transfer from w/c to bed and pt completed with good safety and CGA. The patient is agreeable to complete slide board transfers to/from w/c with nursing assistance in order to sit up throughout the day for meals. He will benefit from skilled PT in order to return to prior level of independence prior to d/c home. Problem List/Current Limitations: Pain Decreased WB Decreased activity adamaris Decreased strength Decreased ROM Decreased balance Generalized weakness Abnormal tonal influence Short Term Goals: 1: Pt to complete bed mobility with HOB flat and no AD with Brennon 2: Pt to complete stand pivot transfers to/from w/c and BSC with Brennon and maintenance of WB status. 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 Pt/Caregiver Training Bed Mobility Thank you for this referral. If you have any questions, concerns, or comments about this report or plan, please contact me at . Colleen Alfonso, PT, DPT MTDD
[2017-12-29 17:35] VITALS: BP 120/79
[2017-12-29] MEDS: QUEtiapine FUM 25 MG TAB PO SCH (21:09)
[2017-12-29] MEDS: GABAPENTIN 300 MG CAP PO SCH (21:12)
[2017-12-29] MEDS: NS(*) 0.9% 500 ML BAG 500 ML IV PRN (21:13)
[2017-12-30] MEDS: IMIPENEM/CILASTA(*) 500MG VIAL 500 MG in NS(*) 0.9% 100 ML BAG 100 ML IVPB SCH ×4 (00:46→18:45)
[2017-12-30 01:33] LABS: PLATELET COUNT, AUTOMATED 176 K/uL (150-450)
[2017-12-30] MEDS: VANCOMYCIN(*) 1 GM VIAL 1 GM, VANCOMYCIN HCL 0.750 GM VIAL 0.75 GM in NS(*) 0.9% 250 ML... IVPB SCH ×2 (05:19→16:54)
[2017-12-30] MEDS: MORPHINE 4 MG/ML SDV IVP PRN ×2 (07:27→14:48)
[2017-12-30 07:30] VITALS: BP 154/98
[2017-12-30] MEDS: PANTOPRAZOLE SOD 40 MG TABEC PO SCH (08:22)
[2017-12-30] MEDS: POTASSIUM CHL 20 MEQ TABCR PO SCH ×2 (08:22→17:36)
[2017-12-30] MEDS: CHOLECALCIFEROL 1000 UNIT TAB PO SCH (08:22)
[2017-12-30] MEDS: ASCORBIC ACID 500 MG TAB PO SCH (08:22)
[2017-12-30] MEDS: CYANOCOBALAMIN 1000 MCG TAB PO SCH (08:22)
[2017-12-30] MEDS: ENOXAPARIN 40 MG/0.4ML SYR SC SCH (08:24)
[2017-12-30 16:25] VITALS: BP 137/87
[2017-12-30] MEDS: QUEtiapine FUM 25 MG TAB PO SCH (21:14)
[2017-12-30] MEDS: GABAPENTIN 300 MG CAP PO SCH (21:14)
[2017-12-31] MEDS: IMIPENEM/CILASTA(*) 500MG VIAL 500 MG in NS(*) 0.9% 100 ML BAG 100 ML IVPB SCH ×4 (01:36→19:11)
[2017-12-31] MEDS: VANCOMYCIN(*) 1 GM VIAL 1 GM, VANCOMYCIN HCL 0.750 GM VIAL 0.75 GM in NS(*) 0.9% 250 ML... IVPB SCH ×2 (05:41→17:09)
[2017-12-31] MEDS: MORPHINE 4 MG/ML SDV IVP PRN ×3 (05:49→23:07)
[2017-12-31 07:45] VITALS: BP 139/93
[2017-12-31] MEDS: ASCORBIC ACID 500 MG TAB PO SCH (08:40)
[2017-12-31] MEDS: CHOLECALCIFEROL 1000 UNIT TAB PO SCH (08:40)
[2017-12-31] MEDS: PANTOPRAZOLE SOD 40 MG TABEC PO SCH (08:40)
[2017-12-31] MEDS: ENOXAPARIN 40 MG/0.4ML SYR SC SCH (08:40)
[2017-12-31] MEDS: CYANOCOBALAMIN 1000 MCG TAB PO SCH (08:40)
[2017-12-31] MEDS: POTASSIUM CHL 20 MEQ TABCR PO SCH ×2 (08:40→17:47)
--- NOTE | 2017-12-31 12:53 | OT ECF NOTE ---
Type of Note: Initial Note Primary Medical Diagnosis: Generalized weakness s/p cellulitis and I&D of left heel ulcer WBAT forefoot of L LE and NWB through heel of L LE Occupational Therapy Evaluation Date: 12/31/17 SUBJECTIVE: Prior Hospitalization: [facility] 12/25/17 thru 12/28/17 Prior Level of Function: Independent with all ADLs/IADLs, pt drives Prior Living Status: Single level house, Alone Community Services: Independent, No known needs Home Accessibility: Ramp All needs on one level Walk-in shower Equipment Owned: Front wheeled walker Bedside commode Wheelchair Medical Complications/Past Medical History: MS since 1985, GERD, chronic heel decubitus ulcer Psychosocial Support: Unknown Pain Scale (0-10): None reported at time of evaluation OBJECTIVE: Strength: MMT: Right Left Shoulder Flexion 4/5 4/5 Elbow Flexion 4/5 4/5 Wrist Extension 4/5 4/5 Patient Access Director 4/5 4/5 (5= normal, 4= good, 3= fair, 2= poor, 1= trace) ROM: Both upper extremities, Minimally limited Sensation: Intact, no concerns Functional Transfer: Assistive Device: Front wheeled walker, Slide board Transfer Ability: CGA ADL: Upper body dressing: Assistive device: None Upper body dressing ability: Set-up Lower body dressing: Assistive device: None Lower body dressing ability: Total assistance Toileting: Assistive device: Grab bars Toileting ability: N/T Grooming/hygiene: Assistive device: Grooming ability: N/T Bathing: Assistive device: Bathing ability: N/T Standardized Assessment: Milvia Index of Activities of Daily Livin/20 upon initial evaluation (). ASSESSMENT: Lane presents to [facility] with generalized weakness and decreased weight bearing in L heel s/p I&D of left heel ulcer. At [facility], he was (I) with all ADLs/ IADLs. He currently requires assist for functional transfers and ADLs secondary to decreased WB and decreased activity tolerance. He will benefit from skilled OT services to improve activity tolerance and optimize (I) with ADLs prior to discharge home alone. Problem List/Current Limitations: Decreased WB Decreased activity tolerance Decreased strength Decreased balance Generalized weakness Short Term Goals: 1) Pt will be (I) UB HEP. 2) Pt will be Mod (I) toileting. 3) Pt will be Mod (I) LB dressing. 4) Pt will be Mod (I) shower task. 5) Pt will be Independent grooming/hygiene seated. 6) Pt Milvia Index of ADLs score will improve by 2 points. Phlebotomy Services Representative Goals: Return home Patient Goals: Return home- "Improve strength in triceps" Rehabilitation Prognosis: Good Barriers to Discharge: Medical hx, WB status PLAN: The patient will benefit from skilled occupational therapy services 5 times per week for 2 weeks including: Ther ex ADL training Safety training Ther act IADL training Transfer training Adaptive equip training Bed mobility Energy conservation Thank you for this referral. If you have any questions, concerns, or comments about this report or plan, please contact me at . Hattie Leon MS, OTR/L Occupational Therapist [facility]
--- NOTE | 2017-12-31 15:51 | General Surgery Progress Note ---
Subjective Progress Notes Subjective No complaints. Physical Exam Vital Signs Date Time Temp Pulse Resp B/P (MAP) Pulse Ox O2 Delivery O2 Flow Rate FiO2 12/31/17 07:46 93 Room Air 12/31/17 07:45 96.9 63 20 139/93 (108) Intake and Output 01/01/18 07:00 Intake Total 721 ml Output Total 1125 ml Balance -404 ml Intake Oral 260 ml IV Total 461 ml Output Urine Total 1125 ml General Appearance: Alert, Awake, No Acute Distress, Afebrile Extremities: Other (Wound vac is in place with good seal. Foot is pink, mildly edematous) Result Diagram: 12/29/17 1634 12/29/17 1634 Assessment and Plan Problems: (1) Decubitus ulcer, heel Status: Chronic Assessment & Plan: Wound vac in place. Continue NPWT and IV abx. I will look at the wounds on his left heel over the next week, will have to coordinate with wound care team and his vac dressing change. (2) MS (multiple sclerosis) Status: Chronic Condition Stable Time Spent: < 30 min Problem Qualifiers (1) Decubitus ulcer, heel: Pressure ulcer stage: stage 3 Laterality: left Qualified Codes: L89.623 - Pressure ulcer of left heel, stage 3 CHRISTIAN ALCANTAR MD Dec 31, 2017 15:51
[2017-12-31 16:25] VITALS: BP 119/84
[2017-12-31] MEDS: GABAPENTIN 300 MG CAP PO SCH (21:22)
[2017-12-31] MEDS: QUEtiapine FUM 25 MG TAB PO SCH (21:22)
[2018-01-01] MEDS: IMIPENEM/CILASTA(*) 500MG VIAL 500 MG in NS(*) 0.9% 100 ML BAG 100 ML IVPB SCH ×4 (00:22→18:46)
[2018-01-01] MEDS: VANCOMYCIN(*) 1 GM VIAL 1 GM, VANCOMYCIN HCL 0.750 GM VIAL 0.75 GM in NS(*) 0.9% 250 ML... IVPB SCH ×2 (05:41→17:21)
[2018-01-01] MEDS: MORPHINE 4 MG/ML SDV IVP PRN ×2 (08:37→16:12)
[2018-01-01 09:29] VITALS: BP 135/89
[2018-01-01] MEDS: ENOXAPARIN 40 MG/0.4ML SYR SC SCH (09:34)
[2018-01-01] MEDS: CHOLECALCIFEROL 1000 UNIT TAB PO SCH (09:35)
[2018-01-01] MEDS: ASCORBIC ACID 500 MG TAB PO SCH (09:35)
[2018-01-01] MEDS: POTASSIUM CHL 20 MEQ TABCR PO SCH ×2 (09:35→17:21)
[2018-01-01] MEDS: CYANOCOBALAMIN 1000 MCG TAB PO SCH (09:35)
[2018-01-01] MEDS: PANTOPRAZOLE SOD 40 MG TABEC PO SCH (09:35)
[2018-01-01 16:11] LABS: PLATELET COUNT, AUTOMATED 161 K/uL (150-450)
[2018-01-01 17:00] VITALS: BP 144/84
[2018-01-01] MEDS: GABAPENTIN 300 MG CAP PO SCH (21:03)
[2018-01-01] MEDS: QUEtiapine FUM 25 MG TAB PO SCH (21:03)
[2018-01-02] MEDS: IMIPENEM/CILASTA(*) 500MG VIAL 500 MG in NS(*) 0.9% 100 ML BAG 100 ML IVPB SCH ×4 (00:21→18:35)
[2018-01-02] MEDS: MORPHINE 4 MG/ML SDV IVP PRN ×3 (00:21→14:14)
[2018-01-02] MEDS: VANCOMYCIN(*) 1 GM VIAL 1 GM, VANCOMYCIN HCL 0.750 GM VIAL 0.75 GM in NS(*) 0.9% 250 ML... IVPB SCH ×2 (05:14→17:03)
[2018-01-02 07:37] VITALS: BP 125/69
[2018-01-02] MEDS: PANTOPRAZOLE SOD 40 MG TABEC PO SCH (08:56)
[2018-01-02] MEDS: ASCORBIC ACID 500 MG TAB PO SCH (08:56)
[2018-01-02] MEDS: CHOLECALCIFEROL 1000 UNIT TAB PO SCH (08:56)
[2018-01-02] MEDS: CYANOCOBALAMIN 1000 MCG TAB PO SCH (08:56)
[2018-01-02] MEDS: POTASSIUM CHL 20 MEQ TABCR PO SCH ×2 (08:56→17:03)
[2018-01-02] MEDS: ENOXAPARIN 40 MG/0.4ML SYR SC SCH (08:57)
[2018-01-02] MEDS ORDERED: ALTEPLASE RECOMB 2 MG VIAL IVP ONE (14:55)
--- NOTE | 2018-01-02 15:11 | Hospitalist Progress Note ---
Subjective Progress Notes Subjective He has complaints of restless legs syndrome. He states he spoke with his neurologist and they recommended increasing his Gabapentin because he is allergic to ropinirole. Other than his leg discomfort, he states he has no concerns. Patient Complains of: Cardiovascular: No: Chest Pain Respiratory: No: Shortness of Breath Physical Exam Vital Signs Date Time Temp Pulse Resp B/P (MAP) Pulse Ox O2 Delivery O2 Flow Rate FiO2 01/02/18 12:13 93 Room Air 01/02/18 07:37 97.9 60 12 125/69 (87) Intake and Output 01/03/18 07:00 Intake Total 1244 ml Output Total 1150 ml Balance 94 ml Intake Oral 720 ml IV Total 524 ml Output Urine Total 1150 ml # Voids 2 # Bowel Movements 1 General Appearance: Alert, Awake, No Acute Distress, Afebrile Cardiovascular: Regular Rate and Rhythm Respiratory: No Respiratory Distress, Clear to Auscultation GI: Soft and Non-Tender Psych: Alert & Oriented X3, Appropriate Mood & Affect Result Diagram: 01/01/18 1605 01/01/18 1605 Assessment and Plan Problems: (1) Decubitus ulcer, heel Status: Chronic Assessment & Plan: He was admitted with cellulitis and decubitus ulcer to the left heel. A CT scan was ordered instead of MRI for the patient secondary to tremor. He was started on Vancomycin and Primaxin. Results of CT scan show osteomyelitis. Dr. Sandoval is consulted and took patient to OR 12/27. He debrided the wound. He had a PICC line was placed last week for continual IV antibiotics. He will continue Vanco and Primaxin for the next week. (2) GERD (gastroesophageal reflux disease) Status: Chronic Assessment & Plan: He is on chronic treatment with Omeprazole. He will be placed on Protonix during admission. (3) MS (multiple sclerosis) Status: Chronic Assessment & Plan: He will continue his Tysabri 300mg IV q 4 weekly. He has been having increased tremors and spasms in his legs. He spoke with his neurologist who recommended doubling his Gabapentin. He was currently taking Gabapentin 300mg at night, I will increase his dose to 300mg BID. Problem Qualifiers (1) Decubitus ulcer, heel: Pressure ulcer stage: stage 3 Laterality: left Qualified Codes: L89.623 - Pressure ulcer of left heel, stage 3 MYLA GILLIAM SERVICE INSPECTOR January 02, 2018 15:11
[2018-01-02 16:35] VITALS: BP 130/80
[2018-01-02] MEDS: GABAPENTIN 300 MG CAP PO SCH (20:37)
[2018-01-02] MEDS: QUEtiapine FUM 25 MG TAB PO SCH (20:37)
[2018-01-03] MEDS: IMIPENEM/CILASTA(*) 500MG VIAL 500 MG in NS(*) 0.9% 100 ML BAG 100 ML IVPB SCH ×4 (01:21→18:26)
[2018-01-03] MEDS: MORPHINE 4 MG/ML SDV IVP PRN ×3 (03:05→23:44)
[2018-01-03] MEDS: VANCOMYCIN(*) 1 GM VIAL 1 GM, VANCOMYCIN HCL 0.750 GM VIAL 0.75 GM in NS(*) 0.9% 250 ML... IVPB SCH ×2 (04:46→16:49)
[2018-01-03] MEDS: ACETAMINOPHEN 325 MG TAB PO PRN (06:03)
[2018-01-03 07:41] VITALS: BP 106/61
[2018-01-03] MEDS: CYANOCOBALAMIN 1000 MCG TAB PO SCH (09:00)
[2018-01-03] MEDS: GABAPENTIN 300 MG CAP PO SCH ×2 (09:00→20:32)
[2018-01-03] MEDS: POTASSIUM CHL 20 MEQ TABCR PO SCH ×2 (09:00→16:55)
[2018-01-03] MEDS: ENOXAPARIN 40 MG/0.4ML SYR SC SCH (09:00)
[2018-01-03] MEDS: PANTOPRAZOLE SOD 40 MG TABEC PO SCH (09:00)
[2018-01-03] MEDS: ASCORBIC ACID 500 MG TAB PO SCH (09:00)
[2018-01-03] MEDS: CHOLECALCIFEROL 1000 UNIT TAB PO SCH (09:00)
[2018-01-03 16:40] VITALS: BP 130/82
[2018-01-03] MEDS: QUEtiapine FUM 25 MG TAB PO SCH (20:33)
[2018-01-04] MEDS: IMIPENEM/CILASTA(*) 500MG VIAL 500 MG in NS(*) 0.9% 100 ML BAG 100 ML IVPB SCH ×4 (00:58→19:04)
[2018-01-04] MEDS: VANCOMYCIN(*) 1 GM VIAL 1 GM, VANCOMYCIN HCL 0.750 GM VIAL 0.75 GM in NS(*) 0.9% 250 ML... IVPB SCH ×2 (05:16→16:50)
[2018-01-04] MEDS: MORPHINE 4 MG/ML SDV IVP PRN ×3 (05:17→21:14)
[2018-01-04 06:20] LABS: PLATELET COUNT, AUTOMATED 188 K/uL (150-450)
[2018-01-04 07:22] VITALS: BP 106/64
--- NOTE | 2018-01-04 08:22 | General Surgery Progress Note ---
Subjective Progress Notes Subjective No complaints. Physical Exam Vital Signs Date Time Temp Pulse Resp B/P (MAP) Pulse Ox O2 Delivery O2 Flow Rate FiO2 01/04/18 07:22 97.6 54 10 106/64 (78) 93 Room Air Intake and Output 01/05/18 07:00 Intake Total 309 ml Balance 309 ml IV Total 309 ml General Appearance: Alert, Awake, No Acute Distress, Afebrile Extremities: Other (Wound vac in place with good seal.) Result Diagram: 01/04/1860401/04/18604 Assessment and Plan Problems: (1) Decubitus ulcer, heel Status: Chronic Assessment & Plan: Wound vac in place. Continue NPWT and IV abx. I will look at the wounds on his left heel over the next week, will have to coordinate with wound care team and his vac dressing change. 01/04/18: Continue NPWT. I'll come up and inspect at next dressing change. In the mean time, keep foot elevated and continue IV abx for possible osteo in calcaneous bone. (2) MS (multiple sclerosis) Status: Chronic Condition Stable. Time Spent: < 30 min Problem Qualifiers (1) Decubitus ulcer, heel: Pressure ulcer stage: stage 3 Laterality: left Qualified Codes: L89.623 - Pressure ulcer of left heel, stage 3 CHRISTIAN ALCANTAR MD January 04, 2018 08:22
[2018-01-04] MEDS: GABAPENTIN 300 MG CAP PO SCH ×2 (09:24→21:14)
[2018-01-04] MEDS: ENOXAPARIN 40 MG/0.4ML SYR SC SCH (09:24)
[2018-01-04] MEDS: CYANOCOBALAMIN 1000 MCG TAB PO SCH (09:24)
[2018-01-04] MEDS: POTASSIUM CHL 20 MEQ TABCR PO SCH ×2 (09:24→17:32)
[2018-01-04] MEDS: PANTOPRAZOLE SOD 40 MG TABEC PO SCH (09:24)
[2018-01-04] MEDS: CHOLECALCIFEROL 1000 UNIT TAB PO SCH (09:24)
[2018-01-04] MEDS: ASCORBIC ACID 500 MG TAB PO SCH (09:24)
[2018-01-04 16:36] VITALS: BP 133/74
[2018-01-04] MEDS: QUEtiapine FUM 25 MG TAB PO SCH (21:14)
[2018-01-05] MEDS: IMIPENEM/CILASTA(*) 500MG VIAL 500 MG in NS(*) 0.9% 100 ML BAG 100 ML IVPB SCH ×4 (01:38→19:08)
[2018-01-05] MEDS: MORPHINE 4 MG/ML SDV IVP PRN ×3 (04:41→21:19)
[2018-01-05] MEDS: VANCOMYCIN(*) 1 GM VIAL 1 GM, VANCOMYCIN HCL 0.750 GM VIAL 0.75 GM in NS(*) 0.9% 250 ML... IVPB SCH (04:42)
[2018-01-05 07:59] VITALS: BP 130/86
[2018-01-05] MEDS: GABAPENTIN 300 MG CAP PO SCH ×2 (08:54→21:16)
[2018-01-05] MEDS: ASCORBIC ACID 500 MG TAB PO SCH (08:54)
[2018-01-05] MEDS: ENOXAPARIN 40 MG/0.4ML SYR SC SCH (08:54)
[2018-01-05] MEDS: PANTOPRAZOLE SOD 40 MG TABEC PO SCH (08:54)
[2018-01-05] MEDS: CHOLECALCIFEROL 1000 UNIT TAB PO SCH (08:55)
[2018-01-05] MEDS: CYANOCOBALAMIN 1000 MCG TAB PO SCH (08:55)
[2018-01-05] MEDS: POTASSIUM CHL 20 MEQ TABCR PO SCH ×2 (08:55→17:01)
[2018-01-05 16:10] VITALS: BP 142/88
[2018-01-05] MEDS: VANCOMYCIN(*) 1 GM VIAL 1 GM, VANCOMYCIN (*) 0.5 GM VIAL 0.5 GM in NS(*) 0.9% 250 ML BA... IVPB SCH (17:03)
[2018-01-05] MEDS: QUEtiapine FUM 25 MG TAB PO SCH (21:15)
[2018-01-06] MEDS: IMIPENEM/CILASTA(*) 500MG VIAL 500 MG in NS(*) 0.9% 100 ML BAG 100 ML IVPB SCH ×4 (00:50→18:52)
[2018-01-06] MEDS: MORPHINE 4 MG/ML SDV IVP PRN ×2 (03:14→19:22)
[2018-01-06] MEDS: VANCOMYCIN(*) 1 GM VIAL 1 GM, VANCOMYCIN (*) 0.5 GM VIAL 0.5 GM in NS(*) 0.9% 250 ML BA... IVPB SCH ×2 (05:34→17:10)
[2018-01-06 08:37] VITALS: BP 134/81
[2018-01-06] MEDS: POTASSIUM CHL 20 MEQ TABCR PO SCH ×2 (08:42→17:42)
[2018-01-06] MEDS: GABAPENTIN 300 MG CAP PO SCH ×2 (08:43→20:47)
[2018-01-06] MEDS: ENOXAPARIN 40 MG/0.4ML SYR SC SCH (08:43)
[2018-01-06] MEDS: CHOLECALCIFEROL 1000 UNIT TAB PO SCH (08:43)
[2018-01-06] MEDS: PANTOPRAZOLE SOD 40 MG TABEC PO SCH (08:43)
[2018-01-06] MEDS: ASCORBIC ACID 500 MG TAB PO SCH (08:43)
[2018-01-06] MEDS: CYANOCOBALAMIN 1000 MCG TAB PO SCH (08:44)
[2018-01-06] MEDS: NS(*) 0.9% 500 ML BAG 500 ML IV PRN (12:38)
[2018-01-06 16:55] VITALS: BP 120/82
[2018-01-06] MEDS ORDERED: WATER FOR INJ,STERILE 20 ML IVP PRN (17:05)
[2018-01-06] MEDS: QUEtiapine FUM 25 MG TAB PO SCH (20:47)
[2018-01-07] MEDS: IMIPENEM/CILASTA(*) 500MG VIAL 500 MG in NS(*) 0.9% 100 ML BAG 100 ML IVPB SCH ×4 (01:15→18:44)
[2018-01-07] MEDS: MORPHINE 4 MG/ML SDV IVP PRN ×2 (02:41→13:18)
[2018-01-07] MEDS: VANCOMYCIN(*) 1 GM VIAL 1 GM, VANCOMYCIN (*) 0.5 GM VIAL 0.5 GM in NS(*) 0.9% 250 ML BA... IVPB SCH (05:45)
[2018-01-07 08:00] VITALS: BP 118/60
[2018-01-07] MEDS: PANTOPRAZOLE SOD 40 MG TABEC PO SCH (08:18)
[2018-01-07] MEDS: GABAPENTIN 300 MG CAP PO SCH ×2 (08:18→20:49)
[2018-01-07] MEDS: ASCORBIC ACID 500 MG TAB PO SCH (08:18)
[2018-01-07] MEDS: CYANOCOBALAMIN 1000 MCG TAB PO SCH (08:18)
[2018-01-07] MEDS: CHOLECALCIFEROL 1000 UNIT TAB PO SCH (08:18)
[2018-01-07] MEDS: POTASSIUM CHL 20 MEQ TABCR PO SCH ×2 (08:18→17:24)
[2018-01-07] MEDS: ENOXAPARIN 40 MG/0.4ML SYR SC SCH (08:18)
--- NOTE | 2018-01-07 08:56 | General Surgery Progress Note ---
Subjective Progress Notes Subjective No complaints. Physical Exam Vital Signs Date Time Temp Pulse Resp B/P (MAP) Pulse Ox O2 Delivery O2 Flow Rate FiO2 01/07/18 08:00 98.0 61 18 118/60 (79) 96 Room Air Intake and Output 01/08/18 06:59 Intake Total 410 ml Output Total 600 ml Balance -190 ml IV Total 410 ml Output Urine Total 600 ml General Appearance: Alert, Awake, No Acute Distress, Afebrile Extremities: Other (wound vac is currently in place with good vacuum seal. When I inspected his heel last week with the vac off, the ulcers were healing and filling in with granulation tissue) Result Diagram: 01/04/1860401/04/18604 Assessment and Plan Problems: (1) Decubitus ulcer, heel Status: Chronic Assessment & Plan: Wound vac in place. Continue NPWT and IV abx. I will look at the wounds on his left heel over the next week, will have to coordinate with wound care team and his vac dressing change. 01/04/18: Continue NPWT. I'll come up and inspect at next dressing change. In the mean time, keep foot elevated and continue IV abx for possible osteo in calcaneous bone. 01/07/18: Doing well. Continue NPWT and keep foot elevated. Will check back in on him later this week and will try and time visit so I can inspect his heel ulcer. (2) MS (multiple sclerosis) Status: Chronic Condition Stable. Time Spent: < 30 min Problem Qualifiers (1) Decubitus ulcer, heel: Pressure ulcer stage: stage 3 Laterality: left Qualified Codes: L89.623 - Pressure ulcer of left heel, stage 3 CHRISTIAN ALCANTAR MD January 07, 2018 08:56
[2018-01-07] MEDS: ALTEPLASE RECOMB 2 MG VIAL IVP PRN (15:23)
[2018-01-07 15:41] VITALS: BP 113/74
[2018-01-07] MEDS: VANCOMYCIN(*) 1 GM VIAL 1 GM, VANCOMYCIN (*) 0.5 GM VIAL 0.25 GM in NS(*) 0.9% 250 ML B... IVPB SCH (17:24)
[2018-01-07] MEDS: QUEtiapine FUM 25 MG TAB PO SCH (20:49)
[2018-01-08] MEDS: IMIPENEM/CILASTA(*) 500MG VIAL 500 MG in NS(*) 0.9% 100 ML BAG 100 ML IVPB SCH ×4 (01:08→18:28)
[2018-01-08] MEDS: MORPHINE 4 MG/ML SDV IVP PRN ×3 (03:24→17:01)
[2018-01-08] MEDS: VANCOMYCIN(*) 1 GM VIAL 1 GM, VANCOMYCIN (*) 0.5 GM VIAL 0.25 GM in NS(*) 0.9% 250 ML B... IVPB SCH ×2 (05:35→17:09)
[2018-01-08] MEDS: ACETAMINOPHEN 325 MG TAB PO PRN (07:08)
[2018-01-08 07:20] VITALS: BP 108/71
[2018-01-08] MEDS: CHOLECALCIFEROL 1000 UNIT TAB PO SCH (08:29)
[2018-01-08] MEDS: ASCORBIC ACID 500 MG TAB PO SCH (08:29)
[2018-01-08] MEDS: PANTOPRAZOLE SOD 40 MG TABEC PO SCH (08:29)
[2018-01-08] MEDS: GABAPENTIN 300 MG CAP PO SCH ×2 (08:29→21:08)
[2018-01-08] MEDS: ENOXAPARIN 40 MG/0.4ML SYR SC SCH (08:29)
[2018-01-08] MEDS: POTASSIUM CHL 20 MEQ TABCR PO SCH ×2 (08:30→18:03)
[2018-01-08] MEDS: CYANOCOBALAMIN 1000 MCG TAB PO SCH (08:30)
[2018-01-08] MEDS: LIDOCAINE 5% OINT 35.44 GM OINT TP PRN (08:50)
--- NOTE | 2018-01-08 13:05 | Medical Nutrition Therapy ---
Nutrition Anthropometrics Height (Inches): 73.00 Height (Calculated Centimeters: 185.519945 Weight (Pounds): 252 Weight (Calculated Kilograms): 114.305 BMI Calculated: 32.85 Marty Nutrition Score: Adequate Marty Nutrition Risk Score: 15 Dietary Referral Nutrition Risk Factors: Non-Healing Wound Nutrition Risk Comment: Physical Findings Physical Appearance: Obese BMI 30-39 Skin Appearance Skin Appearance: Edema Edema Location Modifier: Both Edema Location: Lower Extremity Type of Edema: Degree of Edema: 1+ Gastrointestinal Symptoms GI Symtoms: Tube Present: Bowel Sounds: Recent Bowel Pattern: Stool Characteristics: Nutritional Diagnosis Nutritional Risk Acuity 2: Abcess/Non-Healing Wound Nutritional Risk Acuity 4: Good Appetite Past Medical History: MS, gastric bypass, UTIs, GERD, anemia, MRSA Nutritional Acuity: 2-Moderate Nutrition Diagnosis: Increased Nutrient Needs Nutrition Etiology: Physiological Causes Nutrition Problem/Etiology/Sym: Increased Nutrient Needs related to increased demand for nutrients secondary to wound healing and infection AEB low albumin status and non heeling wound indicating increased stress and increased metabolic needs. Energy Requirement: 2735 (Cornelius-Corrigan adj for obesity X 1.2 SF) Protein Requirement: 112 (1gm/kg AW) Fluid Requirement: 2800 (25gm/kg) Diet Type: Diet as Tolerated EVI/REG Nutrition Intervention: Cont diet as ordered Do Not Serve Any of the Follow: Spinach Optional Order Time?: Yes (PT WOUD LIKE TO EAT BRFT AT 8:00) Additional Diet Restrictions: OFFER BASIL AT BRFT AND SUPPER PUT PROTEIN POWDER IN APPROPRIATE FOODS Diet Comment To RSA: BRFT AT 8:00 Nutrition Monitoring & Eval Nutrition Goals: Eat 75-100% Meal Nutrition Follow-Up: Good Intake RD Patient Assessment Time: [address] Assessment Type: RD Assessment Patient Nutrition Acuity: 2-Moderate Follow Up Date: January 14, 2018 Nutritional Comment: 12/28/17 Pt admitted with cellulitis and non healing decubitis ulcer (stage 3) on left heel and transfered to [facility]. Pt has hx of MS and gastric bypass. Class I obesity with BMI of 32.85. Alb 2.7. Receiving EVI and consuming 100% of meals. Will offer wound healing nutritional supplement and protein powder in appropritate foods to promote healing. Will cont to monitor and encourage intake. 01/08 Intake raning 75- 100%. Pt is up 1.2%. Alb has declined slightly to 3.1. Pt is consuming Basil most days. Will cont to monitor and encourage intake. MICHEAL JOSE January 08, 2018 13:05
[2018-01-08 17:00] VITALS: BP 121/78
[2018-01-08] MEDS: QUEtiapine FUM 25 MG TAB PO SCH (21:08)
[2018-01-09] MEDS: IMIPENEM/CILASTA(*) 500MG VIAL 500 MG in NS(*) 0.9% 100 ML BAG 100 ML IVPB SCH ×4 (01:25→19:00)
[2018-01-09] MEDS: MORPHINE 4 MG/ML SDV IVP PRN ×3 (01:28→12:02)
[2018-01-09] MEDS: VANCOMYCIN(*) 1 GM VIAL 1 GM, VANCOMYCIN (*) 0.5 GM VIAL 0.25 GM in NS(*) 0.9% 250 ML B... IVPB SCH ×2 (05:36→16:42)
[2018-01-09 07:28] VITALS: BP 107/66
--- NOTE | 2018-01-09 07:52 | Hospitalist Progress Note ---
Subjective Progress Notes Subjective This patient remains on extended care for wound management. He had no significant changes over the last several days. Patient Complains of: Cardiovascular: No: Chest Pain Respiratory: No: Shortness of Breath Physical Exam Vital Signs Date Time Temp Pulse Resp B/P (MAP) Pulse Ox O2 Delivery O2 Flow Rate FiO2 01/09/18 03:12 Room Air 01/08/18 17:00 97.4 64 20 121/78 (92) 93 Intake and Output 01/10/18 06:59 Intake Total 265 ml Balance 265 ml IV Total 265 ml Cardiovascular: Regular Rate and Rhythm Respiratory: Clear to Auscultation Assessment and Plan Problems: (1) Decubitus ulcer, heel Status: Chronic Assessment & Plan: He was admitted with cellulitis and decubitus ulcer to the left heel. Dr. Sandoval performed surgery and there is now a wound vac in place. He remains on IV vancomycin until Dr. Sandoval clears his wound. (2) GERD (gastroesophageal reflux disease) Status: Chronic Assessment & Plan: He is on chronic treatment with Omeprazole. (3) MS (multiple sclerosis) Status: Chronic Assessment & Plan: He will continue his Tysabri 300mg IV q 4 weekly. He has been having increased tremors and spasms in his legs. He spoke with his neurologist who recommended doubling his Gabapentin. His gabapentin dose was increased during this admission. Problem Qualifiers (1) Decubitus ulcer, heel: Pressure ulcer stage: stage 3 Laterality: left Qualified Codes: L89.623 - Pressure ulcer of left heel, stage 3 CHRISTIAN FRAZIER DO January 09, 2018 07:52
[2018-01-09] MEDS: POTASSIUM CHL 20 MEQ TABCR PO SCH ×2 (08:30→16:42)
[2018-01-09] MEDS: ASCORBIC ACID 500 MG TAB PO SCH (08:30)
[2018-01-09] MEDS: ENOXAPARIN 40 MG/0.4ML SYR SC SCH (08:30)
[2018-01-09] MEDS: PANTOPRAZOLE SOD 40 MG TABEC PO SCH (08:30)
[2018-01-09] MEDS: CYANOCOBALAMIN 1000 MCG TAB PO SCH (08:30)
[2018-01-09] MEDS: CHOLECALCIFEROL 1000 UNIT TAB PO SCH (08:30)
[2018-01-09] MEDS: GABAPENTIN 300 MG CAP PO SCH ×3 (08:37→20:49)
[2018-01-09] MEDS: ACETAMINOPHEN 325 MG TAB PO PRN (09:54)
[2018-01-09] MEDS: QUEtiapine FUM 25 MG TAB PO SCH (20:49)
[2018-01-10] MEDS: NS(*) 0.9% 500 ML BAG 500 ML IV PRN (01:15)
[2018-01-10] MEDS: MORPHINE 4 MG/ML SDV IVP PRN ×3 (01:15→13:06)
[2018-01-10] MEDS: IMIPENEM/CILASTA(*) 500MG VIAL 500 MG in NS(*) 0.9% 100 ML BAG 100 ML IVPB SCH ×4 (01:15→19:00)
[2018-01-10 02:24] VITALS: BP 119/72
[2018-01-10] MEDS: VANCOMYCIN(*) 1 GM VIAL 1 GM, VANCOMYCIN (*) 0.5 GM VIAL 0.25 GM in NS(*) 0.9% 250 ML B... IVPB SCH ×2 (04:56→17:06)
[2018-01-10] MEDS: ACETAMINOPHEN 325 MG TAB PO PRN (05:04)
[2018-01-10 08:00] VITALS: BP 133/89
[2018-01-10] MEDS: ENOXAPARIN 40 MG/0.4ML SYR SC SCH (08:37)
[2018-01-10] MEDS: PANTOPRAZOLE SOD 40 MG TABEC PO SCH (08:37)
[2018-01-10] MEDS: CYANOCOBALAMIN 1000 MCG TAB PO SCH (08:37)
[2018-01-10] MEDS: ASCORBIC ACID 500 MG TAB PO SCH (08:37)
[2018-01-10] MEDS: GABAPENTIN 300 MG CAP PO SCH ×3 (08:37→20:51)
[2018-01-10] MEDS: POTASSIUM CHL 20 MEQ TABCR PO SCH ×2 (08:37→17:06)
[2018-01-10] MEDS: CHOLECALCIFEROL 1000 UNIT TAB PO SCH (08:37)
--- NOTE | 2018-01-10 13:50 | PT ECF NOTE ---
Type of Note: Progress Note Primary Medical Diagnosis: Cellulitis, s/p I&D of L) heel ulcers Physical Therapy Evaluation Date: 12/28/17 SUBJECTIVE: Prior Hospitalization: [facility] 12/25/17-12/28/17 Prior Level of Function: Pt utilizes w/c for all mobility and completes stand pivot transfers to/from various surfaces independently, he reports that he has been non-ambulatory x5 years Prior Living Status: Single level house (w/c accessible), Alone Community Services: Independent Home Accessibility: All needs on one level Equipment Owned: Front wheeled walker, Wheelchair, BSC Medical Complications/Past Medical History: MS (diagnosed at age 20), see EMR for details Psychosocial Support: Ex girlfriend, "Tika" Pain Scale (0-10): None reported at time of progress note OBJECTIVE: Strength: Right Lower Extremity: DF: <3/5 Knee flexion: 4/5 Knee extension: <3/5 Hip flexion: <3/5 Left Lower Extremity: DF: <3/5 (pt reports significant foot drop on this side) Knee flexion: 4/5 Knee extension: <3/5 Hip flexion: <3/5 ROM: Flexor spasticity present in bilateral LEs, limiting knee extension Sensation: Pt reports WNL Other Neuro findings: Consistent with diagnosis of MS Weight bearing: Per Dr. Sandoval, pt is WBAT through forefoot of the L) LE, NWB through heel on L) LE Bed Mobility: SBA with use of bed rail Transfers: CGA/SBA stand pivot transfers to/from w/c Gait: n/a Stairs: n/a ASSESSMENT: Pt continues to make progress towards functional goals and is demonstrating increased independence and safety with transfers. He continues to require assistance in order to maintain NWB status of the L) heel with stand pivot transfers, and is completing slide transfers to/from w/c with nursing staff. The patient will continue to benefit from skilled PT services in order to ensure total independence with functional transfers prior to d/c with maintenance of NWB status of L) heel. Wound Assessment: PT wound eval completed 01/01/18 with continued care of NPWT to pressure injury of the L) heel, s/p surgical I&D. With most recent dressing change completed 01/08/18-- Wound demonstrated increased granulation tissue and good epithelization of the wound borders. Depth of the wound on the plantar surface demonstrates increased tissue coverage as well. PT cleansed the wound with sterile saline and gauze and then treated periwound skin with marathon skin protectant and wound vac drape in a window martinez fashion. White foam was placed in the depth of the wound on the lateral and plantar surfaces, followed by black simplace foam across the entire wound base, including the medial ulcer. Good seal obtained with 125 mmHg. Plan is to continue with current POC under surgeon's orders with twice weekly dressing changes. Problem List/Current Limitations: Pain Decreased WB Decreased activity adamaris Decreased strength Decreased ROM Decreased balance Generalized weakness Abnormal tonal influence Short Term Goals: (all ongoing, pt making progress) 1: Pt to complete bed mobility with HOB flat and no AD with Brennon 2: Pt to complete stand pivot transfers to/from w/c and BSC with Brennon and maintenance of WB status. 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 Patient Goals: Discharge home Rehabilitation Prognosis: Good Barriers for Discharge: High level of independence required to d/c to prior living setting, weightbearing restriction of L) LE PLAN: The patient will benefit from skilled physical therapy services 5 times per week for 2 weeks including: Therapeutic Exercise Therapeutic Activities Transfer Training Manual Therapy Safety Training Neuromuscular Re-educ. Pt/Caregiver Training Bed Mobility Wound Care Thank you for this referral. If you have any questions, concerns, or comments about this report or plan, please contact me at . Colleen Alfonso, PT, DPT MTDD
[2018-01-10 15:33] VITALS: BP 112/71
[2018-01-10] MEDS: QUEtiapine FUM 25 MG TAB PO SCH (20:51)
[2018-01-11] MEDS: IMIPENEM/CILASTA(*) 500MG VIAL 500 MG in NS(*) 0.9% 100 ML BAG 100 ML IVPB SCH ×4 (01:18→18:28)
[2018-01-11] MEDS: VANCOMYCIN(*) 1 GM VIAL 1 GM, VANCOMYCIN (*) 0.5 GM VIAL 0.25 GM in NS(*) 0.9% 250 ML B... IVPB SCH (04:54)
[2018-01-11] MEDS: MORPHINE 4 MG/ML SDV IVP PRN ×3 (05:31→23:47)
[2018-01-11 08:00] VITALS: BP 123/85
[2018-01-11] MEDS: PANTOPRAZOLE SOD 40 MG TABEC PO SCH (08:45)
[2018-01-11] MEDS: POTASSIUM CHL 20 MEQ TABCR PO SCH ×2 (08:45→17:00)
[2018-01-11] MEDS: CHOLECALCIFEROL 1000 UNIT TAB PO SCH (08:46)
[2018-01-11] MEDS: ASCORBIC ACID 500 MG TAB PO SCH (08:46)
[2018-01-11] MEDS: ENOXAPARIN 40 MG/0.4ML SYR SC SCH (08:46)
[2018-01-11] MEDS: GABAPENTIN 300 MG CAP PO SCH ×3 (08:46→20:40)
[2018-01-11] MEDS: CYANOCOBALAMIN 1000 MCG TAB PO SCH (08:46)
[2018-01-11] MEDS: LIDOCAINE 5% OINT 35.44 GM OINT TP PRN (13:16)
--- NOTE | 2018-01-11 14:27 | Hospitalist Progress Note ---
Physical Exam Vital Signs Date Time Temp Pulse Resp B/P (MAP) Pulse Ox O2 Delivery O2 Flow Rate FiO2 01/11/18 08:00 92 Room Air 01/11/18 08:00 98.6 67 18 123/85 (98) Intake and Output 01/12/18 06:59 Intake Total 240 ml Balance 240 ml Intake Oral 240 ml # Voids 2 Assessment and Plan Problems: (1) Decubitus ulcer, heel Status: Chronic Assessment & Plan: He was admitted with cellulitis and decubitus ulcer to the left heel. Dr. Sandoval performed surgery and there is now a wound vac in place. He remains on IV vancomycin until Dr. Sandoval clears his wound. (2) GERD (gastroesophageal reflux disease) Status: Chronic Assessment & Plan: He is on chronic treatment with Omeprazole. (3) MS (multiple sclerosis) Status: Chronic Assessment & Plan: He will continue his Tysabri 300mg IV q 4 weekly. He has been having increased tremors and spasms in his legs. He spoke with his neurologist who recommended doubling his Gabapentin. His gabapentin dose was increased during this admission. (4) Dyssomnia Status: Chronic Assessment & Plan: He is on chronic treatment with Seroquel for this. 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 Problem Qualifiers (1) Decubitus ulcer, heel: Pressure ulcer stage: stage 3 Laterality: left Qualified Codes: L89.623 - Pressure ulcer of left heel, stage 3 CHRISTIAN FRAZIER DO January 11, 2018 14:27
[2018-01-11 15:15] VITALS: BP 123/79
[2018-01-11] MEDS: VANCOMYCIN(*) 1 GM VIAL 1 GM, VANCOMYCIN (*) 0.5 GM VIAL 0.5 GM in NS(*) 0.9% 250 ML BA... IVPB SCH (17:01)
[2018-01-11] MEDS: QUEtiapine FUM 25 MG TAB PO SCH (20:40)
[2018-01-12] MEDS: IMIPENEM/CILASTA(*) 500MG VIAL 500 MG in NS(*) 0.9% 100 ML BAG 100 ML IVPB SCH ×4 (01:19→19:32)
[2018-01-12] MEDS: VANCOMYCIN(*) 1 GM VIAL 1 GM, VANCOMYCIN (*) 0.5 GM VIAL 0.5 GM in NS(*) 0.9% 250 ML BA... IVPB SCH ×2 (05:32→17:38)
[2018-01-12 07:45] VITALS: BP 115/79
[2018-01-12] MEDS: PANTOPRAZOLE SOD 40 MG TABEC PO SCH (07:48)
[2018-01-12] MEDS: CYANOCOBALAMIN 1000 MCG TAB PO SCH (07:48)
[2018-01-12] MEDS: ENOXAPARIN 40 MG/0.4ML SYR SC SCH (07:48)
[2018-01-12] MEDS: CHOLECALCIFEROL 1000 UNIT TAB PO SCH (07:48)
[2018-01-12] MEDS: POTASSIUM CHL 20 MEQ TABCR PO SCH ×2 (07:48→17:38)
[2018-01-12] MEDS: GABAPENTIN 300 MG CAP PO SCH ×3 (07:48→20:57)
[2018-01-12] MEDS: ASCORBIC ACID 500 MG TAB PO SCH (07:48)
[2018-01-12] MEDS: MORPHINE 4 MG/ML SDV IVP PRN ×2 (07:51→18:05)
[2018-01-12 15:25] VITALS: BP 106/74
[2018-01-12] MEDS: QUEtiapine FUM 25 MG TAB PO SCH (20:57)
[2018-01-13] MEDS: IMIPENEM/CILASTA(*) 500MG VIAL 500 MG in NS(*) 0.9% 100 ML BAG 100 ML IVPB SCH ×4 (00:26→19:40)
[2018-01-13] MEDS: VANCOMYCIN(*) 1 GM VIAL 1 GM, VANCOMYCIN (*) 0.5 GM VIAL 0.5 GM in NS(*) 0.9% 250 ML BA... IVPB SCH ×2 (05:44→17:14)
[2018-01-13 07:25] VITALS: BP 120/80
[2018-01-13] MEDS: MORPHINE 4 MG/ML SDV IVP PRN (07:26)
[2018-01-13] MEDS: GABAPENTIN 300 MG CAP PO SCH ×3 (08:34→20:23)
[2018-01-13] MEDS: PANTOPRAZOLE SOD 40 MG TABEC PO SCH (08:34)
[2018-01-13] MEDS: POTASSIUM CHL 20 MEQ TABCR PO SCH ×2 (08:34→17:14)
[2018-01-13] MEDS: CHOLECALCIFEROL 1000 UNIT TAB PO SCH (08:34)
[2018-01-13] MEDS: CYANOCOBALAMIN 1000 MCG TAB PO SCH (08:34)
[2018-01-13] MEDS: ASCORBIC ACID 500 MG TAB PO SCH (08:35)
[2018-01-13] MEDS: ENOXAPARIN 40 MG/0.4ML SYR SC SCH (08:35)
[2018-01-13 15:17] VITALS: BP 130/86
[2018-01-13] MEDS: QUEtiapine FUM 25 MG TAB PO SCH (20:23)
[2018-01-14] MEDS: NS(*) 0.9% 500 ML BAG 500 ML IV PRN (01:38)
[2018-01-14] MEDS: IMIPENEM/CILASTA(*) 500MG VIAL 500 MG in NS(*) 0.9% 100 ML BAG 100 ML IVPB SCH ×4 (01:39→19:20)
[2018-01-14] MEDS: VANCOMYCIN(*) 1 GM VIAL 1 GM, VANCOMYCIN (*) 0.5 GM VIAL 0.5 GM in NS(*) 0.9% 250 ML BA... IVPB SCH ×2 (04:15→17:20)
[2018-01-14] MEDS: MORPHINE 4 MG/ML SDV IVP PRN ×2 (04:15→17:20)
[2018-01-14 08:00] VITALS: BP 120/69
[2018-01-14] MEDS: CYANOCOBALAMIN 1000 MCG TAB PO SCH (08:32)
[2018-01-14] MEDS: ENOXAPARIN 40 MG/0.4ML SYR SC SCH (08:32)
[2018-01-14] MEDS: POTASSIUM CHL 20 MEQ TABCR PO SCH ×2 (08:32→17:18)
[2018-01-14] MEDS: PANTOPRAZOLE SOD 40 MG TABEC PO SCH (08:33)
[2018-01-14] MEDS: CHOLECALCIFEROL 1000 UNIT TAB PO SCH (08:33)
[2018-01-14] MEDS: GABAPENTIN 300 MG CAP PO SCH ×3 (08:33→20:34)
[2018-01-14] MEDS: ASCORBIC ACID 500 MG TAB PO SCH (08:33)
[2018-01-14] MEDS: ALTEPLASE RECOMB 2 MG VIAL IVP PRN (13:32)
--- NOTE | 2018-01-14 14:01 | Medical Nutrition Therapy ---
Nutrition Anthropometrics Height (Inches): 73.00 Height (Calculated Centimeters: 185.807897 Weight (Pounds): 251 Weight (Calculated Kilograms): 113.880 BMI Calculated: 32.85 Marty Nutrition Score: Adequate Marty Nutrition Risk Score: 16 Dietary Referral Nutrition Risk Factors: Non-Healing Wound Nutrition Risk Comment: Physical Findings Physical Appearance: Obese BMI 30-39 Skin Appearance Skin Appearance: Edema Edema Location Modifier: Both Edema Location: Lower Extremity Type of Edema: Degree of Edema: 1+ Gastrointestinal Symptoms GI Symtoms: Tube Present: Bowel Sounds: Recent Bowel Pattern: Stool Characteristics: Nutritional Diagnosis Nutritional Risk Acuity 2: Abcess/Non-Healing Wound Nutritional Risk Acuity 4: Good Appetite Past Medical History: MS, gastric bypass, UTIs, GERD, anemia, MRSA Nutritional Acuity: 2-Moderate Nutrition Diagnosis: Increased Nutrient Needs Nutrition Etiology: Physiological Causes Nutrition Problem/Etiology/Sym: Increased Nutrient Needs related to increased demand for nutrients secondary to wound healing and infection AEB documented low food intake of 50%. Energy Requirement: 2735 ([place] adj for obesity X 1.2 SF) Protein Requirement: 112 (1gm/kg AW) Fluid Requirement: 2800 (25gm/kg) Diet Type: Diet as Tolerated EVI/REG Nutrition Intervention: Cont diet as ordered Do Not Serve Any of the Follow: Spinach Optional Order Time?: Yes (PT WOUD LIKE TO EAT BRFT AT 8:00) Additional Diet Restrictions: OFFER BASIL AT BRFT AND SUPPER PUT PROTEIN POWDER IN APPROPRIATE FOODS Diet Comment To RSA: BRFT AT 8:00 Nutrition Monitoring & Eval Nutrition Goals: Eat 75-100% Meal RD Patient Assessment Time: [address] Assessment Type: RD Re-Assessment Patient Nutrition Acuity: 2-Moderate Follow Up Date: January 14, 2018 Nutritional Comment: 12/28/17 Pt admitted with cellulitis and non healing decubitis ulcer (stage 3) on left heel and transfered to [facility]. Pt has hx of MS and gastric bypass. Class I obesity with BMI of 32.85. Alb 2.7. Receiving EVI and consuming 100% of meals. Will offer wound healing nutritional supplement and protein powder in appropritate foods to promote healing. Will cont to monitor and encourage intake. 01/08 Intake raning 75- 100%. Pt is up 1.2%. Alb has declined slightly to 3.1. Pt is consuming Basil most days. Will cont to monitor and encourage intake. 01/14 Pt continues EVI/REG consuming 50% of his meals with additonal protein powder added for wound healing. No new lab values at this time. Continue to montior pt progress and encourage intake. -RAFIQ MONROE January 14, 2018 10:04
--- NOTE | 2018-01-14 15:34 | OT ECF NOTE ---
Type of Note: Discharge Note Primary Medical Diagnosis: Generalized weakness s/p cellulitis and I&D of left heel ulcer WBAT forefoot of L LE and NWB through heel of L LE Occupational Therapy Evaluation Date: 12/31/17 SUBJECTIVE: Prior Hospitalization: [facility] 12/25/17 thru 12/28/17 Prior Level of Function: Independent with all ADLs/IADLs, pt drives Prior Living Status: Single level house, Alone Community Services: Independent, No known needs Home Accessibility: Ramp All needs on one level Walk-in shower Equipment Owned: Front wheeled walker Bedside commode Wheelchair Medical Complications/Past Medical History: MS since 1985, GERD, chronic heel decubitus ulcer Psychosocial Support: Unknown Pain Scale (0-10): None reported at time of evaluation OBJECTIVE: Strength: MMT: Right Left Shoulder Flexion 5/5 5/5 Elbow Flexion 5/5 5/5 Wrist Extension 5/5 5/5 Busser 5/5 5/5 (5= normal, 4= good, 3= fair, 2= poor, 1= trace) ROM: Both upper extremities, Within Normal Limits Sensation: Intact, no concerns Functional Transfer: Assistive Device: Front wheeled walker, Slide board Transfer Ability: SBA ADL: Upper body dressing: Assistive device: None Upper body dressing ability: Independent (seated) Lower body dressing: Assistive device: None Lower body dressing ability: Refused donning of pants with OT. Reports (I ) supine in bed. Toileting: Assistive device: Grab bars Toileting ability: Independent Grooming/hygiene: Assistive device: Seated Grooming ability: Independent Bathing: Assistive device: Commode Bathing ability: SBA Standardized Assessment: Milvia Index of Activities of Daily Livin/20 upon initial evaluation (). 08/22 at discharge (01/14/18). ASSESSMENT: Lane presented to [facility] with generalized weakness and decreased weight bearing in L heel s/p I&D of left heel ulcer. At PLOF, he was (I) with all ADLs/IADLs. He is (I) with ADLs/IADL seated in wheelchair and is (I) with UB HEP. Pt reports improved (I) with transfers and desires to be discharged from OT with continued skilled PT services to address functional transfers and wound care. Pt has been provided with appropriate AE recommendations (slide board/drop arm commode) and declined a home evaluation. Pt reports no further concerns or needs from skilled OT services. Problem List/Current Limitations: Decreased WB Decreased activity tolerance Decreased strength Decreased balance Generalized weakness Short Term Goals: 1) Pt will be (I) UB HEP. Goal Met. 2) Pt will be Mod (I) toileting. Goal Met. 3) Pt will be Mod (I) LB dressing. Goal not addressed-Pt declining LB dressing with OT-reports no concerns upon discharge home. Reports (I) supine in bed. 4) Pt will be Mod (I) shower task. Progressing towards. Pt reports no concerns with bathing upon discharge home. 5) Pt will be Independent grooming/hygiene seated. Goal met. 6) Pt Milvia Index of ADLs score will improve by 2 points. Goal met. Legal Billing Analyst Goals: Return home Patient Goals: Return home- "Improve strength in triceps" Rehabilitation Prognosis: Good Barriers to Discharge: Medical hx, WB status PLAN: Plan to discharge OT services and continue skilled PT/wound care during ECF admission. Thank you for this referral. If you have any questions, concerns, or comments about this report or plan, please contact me at . Hattie Leon MS, OTR/L Occupational Therapist LUZ
[2018-01-14 16:50] VITALS: BP 113/74
[2018-01-14] MEDS: QUEtiapine FUM 25 MG TAB PO SCH (20:34)
[2018-01-15] MEDS: IMIPENEM/CILASTA(*) 500MG VIAL 500 MG in NS(*) 0.9% 100 ML BAG 100 ML IVPB SCH ×4 (00:42→18:54)
[2018-01-15] MEDS: VANCOMYCIN(*) 1 GM VIAL 1 GM, VANCOMYCIN (*) 0.5 GM VIAL 0.5 GM in NS(*) 0.9% 250 ML BA... IVPB SCH ×2 (05:14→17:27)
[2018-01-15 08:00] VITALS: BP 120/70
[2018-01-15] MEDS: PANTOPRAZOLE SOD 40 MG TABEC PO SCH (08:20)
[2018-01-15] MEDS: ENOXAPARIN 40 MG/0.4ML SYR SC SCH (08:20)
[2018-01-15] MEDS: CHOLECALCIFEROL 1000 UNIT TAB PO SCH (08:20)
[2018-01-15] MEDS: CYANOCOBALAMIN 1000 MCG TAB PO SCH (08:20)
[2018-01-15] MEDS: GABAPENTIN 300 MG CAP PO SCH ×3 (08:20→20:26)
[2018-01-15] MEDS: ASCORBIC ACID 500 MG TAB PO SCH (08:20)
[2018-01-15] MEDS: POTASSIUM CHL 20 MEQ TABCR PO SCH ×2 (08:20→17:27)
[2018-01-15] MEDS: MORPHINE 4 MG/ML SDV IVP PRN ×2 (08:57→17:33)
[2018-01-15] MEDS: LIDOCAINE 5% OINT 35.44 GM OINT TP PRN (09:21)
--- NOTE | 2018-01-15 11:31 | General Surgery Progress Note ---
Subjective Progress Notes Subjective Patient without complaints. Physical Exam Vital Signs Date Time Temp Pulse Resp B/P (MAP) Pulse Ox O2 Delivery O2 Flow Rate FiO2 01/15/18 08:00 98.1 56 14 120/70 (87) 92 Blow-by 01/14/18 16:50 91.0 Intake and Output 01/16/18 06:59 Intake Total 561 ml Output Total 900 ml Balance -339 ml Intake Oral 120 ml IV Total 441 ml Output Urine Total 900 ml General Appearance: Alert, Awake, No Acute Distress, Afebrile Extremities: Other (the wound VAC was removed by physical therapy and I inspected the heel ulcer. It is looking better and better. The entire area is being covered with granulation tissue. There is no erythema and minimal drainage.) Assessment and Plan Problems: (1) Decubitus ulcer, heel Status: Chronic Assessment & Plan: Wound vac in place. Continue NPWT and IV abx. I will look at the wounds on his left heel over the next week, will have to coordinate with wound care team and his vac dressing change. 01/04/18: Continue NPWT. I'll come up and inspect at next dressing change. In the mean time, keep foot elevated and continue IV abx for possible osteo in calcaneous bone. 01/07/18: Doing well. Continue NPWT and keep foot elevated. Will check back in on him later this week and will try and time visit so I can inspect his heel ulcer. 01/11/18: Doing well. The wound is continuing to improve. We'll continue with wound VAC and keeping his foot elevated. Will check back in on him next week. 01/15/18: Continues to do well. The wound continues to show improvement. The deepest ulcer on the plantar surface of his heel is even more shallow and filling in with granulation tissue. We'll continue with the wound VAC and keeping his foot elevated. I will check back in on him later this week or next week. Would like to keep him in the extended care facility until the ulcer is almost completely healed so as to prevent further problems with pressure from him sitting in his wheelchair after discharge. (2) MS (multiple sclerosis) Status: Chronic Condition Stable Time Spent: < 30 min Problem Qualifiers (1) Decubitus ulcer, heel: Pressure ulcer stage: stage 3 Laterality: left Qualified Codes: L89.623 - Pressure ulcer of left heel, stage 3 CHRISTIAN ALCANTAR MD January 15, 2018 11:31
--- NOTE | 2018-01-15 12:07 | Medical Nutrition Therapy ---
Nutrition Monitoring & Eval RD Patient Assessment Time: [address] Assessment Type: RD Re-Assessment Patient Nutrition Acuity: 2-Moderate Follow Up Date: January 22, 2018 Nutritional Comment: 12/28/17 Pt admitted with cellulitis and non healing decubitis ulcer (stage 3) on left heel and transfered to [facility]. Pt has hx of MS and gastric bypass. Class I obesity with BMI of 32.85. Alb 2.7. Receiving EVI and consuming 100% of meals. Will offer wound healing nutritional supplement and protein powder in appropritate foods to promote healing. Will cont to monitor and encourage intake. 01/08 Intake raning 75- 100%. Pt is up 1.2%. Alb has declined slightly to 3.1. Pt is consuming Miguel Angel most days. Will cont to monitor and encourage intake. 01/14 Pt continues EVI/REG consuming 50% of his meals with additonal protein powder added for wound healing. No new lab values at this time. Continue to montior pt progress and encourage intake. -MICHEAL MEMBRENO January 15, 2018 12:07
[2018-01-15 16:40] VITALS: BP 130/130
[2018-01-15] MEDS: QUEtiapine FUM 25 MG TAB PO SCH (20:26)
[2018-01-16] MEDS: IMIPENEM/CILASTA(*) 500MG VIAL 500 MG in NS(*) 0.9% 100 ML BAG 100 ML IVPB SCH ×4 (01:00→18:17)
[2018-01-16] MEDS: MORPHINE 4 MG/ML SDV IVP PRN ×3 (04:43→23:47)
[2018-01-16] MEDS: VANCOMYCIN(*) 1 GM VIAL 1 GM, VANCOMYCIN (*) 0.5 GM VIAL 0.5 GM in NS(*) 0.9% 250 ML BA... IVPB SCH ×2 (04:44→17:01)
[2018-01-16 08:17] VITALS: BP 120/66
[2018-01-16] MEDS: ENOXAPARIN 40 MG/0.4ML SYR SC SCH (08:23)
[2018-01-16] MEDS: GABAPENTIN 300 MG CAP PO SCH ×2 (08:23→20:47)
[2018-01-16] MEDS: POTASSIUM CHL 20 MEQ TABCR PO SCH ×2 (08:23→16:59)
[2018-01-16] MEDS: CYANOCOBALAMIN 1000 MCG TAB PO SCH (08:23)
[2018-01-16] MEDS: CHOLECALCIFEROL 1000 UNIT TAB PO SCH (08:23)
[2018-01-16] MEDS: ASCORBIC ACID 500 MG TAB PO SCH (08:23)
[2018-01-16] MEDS: PANTOPRAZOLE SOD 40 MG TABEC PO SCH (08:23)
--- NOTE | 2018-01-16 10:08 | Hospitalist Progress Note ---
Subjective Progress Notes Subjective No new complaints. The increased dose of gabapentin has not been effective for his RLS. Physical Exam Vital Signs Date Time Temp Pulse Resp B/P (MAP) Pulse Ox O2 Delivery O2 Flow Rate FiO2 01/16/18 09:30 95 Room Air 01/16/18 08:17 97.7 66 12 120/66 (84) 01/14/18 16:50 91.0 Intake and Output 01/17/18 07:00 Intake Total 125 ml Balance 125 ml IV Total 125 ml General Appearance: Alert, Awake, No Acute Distress ENT: Normal Cardiovascular: Regular Rate and Rhythm Respiratory: Clear to Auscultation GI: Soft and Non-Tender Extremities: Other (PICC in L upper arm is clean and dry without redness. L leg elevated. Wound vac in place over heel.) Integumentary: Other (Wound vac in place over left heel. ) Psych: Appropriate Mood & Affect Assessment and Plan Problems: (1) Decubitus ulcer, heel Status: Chronic Assessment & Plan: He was admitted with cellulitis and decubitus ulcer to the left heel. Dr. Sandoval performed surgery and there is now a wound vac in place. He remains on IV vancomycin and Primaxin until Dr. Sandoval clears his wound. (2) GERD (gastroesophageal reflux disease) Status: Chronic Assessment & Plan: He is on chronic treatment with Omeprazole. (3) MS (multiple sclerosis) Status: Chronic Assessment & Plan: He will continue his Tysabri 300mg IV q 4 weekly. He has been having increased tremors and spasms in his legs. He spoke with his neurologist who recommended doubling his Gabapentin. His gabapentin dose was increased during this admission. (4) Dyssomnia Status: Chronic Assessment & Plan: He is on chronic treatment with Seroquel for this. He also takes gabapentin at HS. 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 (5) Restless leg syndrome Status: Chronic Assessment & Plan: Increasing the gabapentin to tid did not help. He has an allergy to ropinirole. Will add Klonopin at HS. If this does not work, consider just increasing the HS dose of gabapentin to 600mg. Time Spent on Plan of Care: < 30 min Problem Qualifiers (1) Decubitus ulcer, heel: Pressure ulcer stage: stage 3 Laterality: left Qualified Codes: L89.623 - Pressure ulcer of left heel, stage 3 MARVA MALLOY MD January 16, 2018 10:08
[2018-01-16] MEDS: NYSTATIN 100,000 U/GM PWD 15GM TP SCH ×2 (13:48→20:47)
[2018-01-16 16:11] LABS: PLATELET COUNT, AUTOMATED 160 K/uL (150-450)
[2018-01-16 16:25] VITALS: BP 114/76
[2018-01-16] MEDS: clonazePAM 1 MG TAB PO PRN (20:47)
[2018-01-16] MEDS: QUEtiapine FUM 25 MG TAB PO SCH (20:47)
[2018-01-17] MEDS: IMIPENEM/CILASTA(*) 500MG VIAL 500 MG in NS(*) 0.9% 100 ML BAG 100 ML IVPB SCH ×4 (01:06→19:14)
[2018-01-17] MEDS: VANCOMYCIN(*) 1 GM VIAL 1 GM, VANCOMYCIN (*) 0.5 GM VIAL 0.5 GM in NS(*) 0.9% 250 ML BA... IVPB SCH ×2 (05:12→17:15)
[2018-01-17] MEDS: MORPHINE 4 MG/ML SDV IVP PRN ×2 (05:13→22:02)
[2018-01-17] MEDS: PANTOPRAZOLE SOD 40 MG TABEC PO SCH (08:24)
[2018-01-17] MEDS: ASCORBIC ACID 500 MG TAB PO SCH (08:24)
[2018-01-17] MEDS: CYANOCOBALAMIN 1000 MCG TAB PO SCH (08:24)
[2018-01-17] MEDS: ENOXAPARIN 40 MG/0.4ML SYR SC SCH (08:24)
[2018-01-17] MEDS: POTASSIUM CHL 20 MEQ TABCR PO SCH ×2 (08:24→17:15)
[2018-01-17] MEDS: NYSTATIN 100,000 U/GM PWD 15GM TP SCH ×2 (08:24→21:01)
[2018-01-17] MEDS: CHOLECALCIFEROL 1000 UNIT TAB PO SCH (08:24)
[2018-01-17 09:00] VITALS: BP 114/70
[2018-01-17 17:26] VITALS: BP 116/69
[2018-01-17] MEDS: GABAPENTIN 300 MG CAP PO SCH (21:01)
[2018-01-17] MEDS: QUEtiapine FUM 25 MG TAB PO SCH (21:01)
[2018-01-17] MEDS: clonazePAM 1 MG TAB PO PRN (21:03)
[2018-01-18] MEDS: NS(*) 0.9% 500 ML BAG 500 ML IV PRN (01:00)
[2018-01-18] MEDS: IMIPENEM/CILASTA(*) 500MG VIAL 500 MG in NS(*) 0.9% 100 ML BAG 100 ML IVPB SCH ×4 (01:02→19:00)
[2018-01-18] MEDS: VANCOMYCIN(*) 1 GM VIAL 1 GM, VANCOMYCIN (*) 0.5 GM VIAL 0.5 GM in NS(*) 0.9% 250 ML BA... IVPB SCH ×2 (04:27→17:08)
[2018-01-18 08:00] VITALS: BP 112/65
[2018-01-18] MEDS: CHOLECALCIFEROL 1000 UNIT TAB PO SCH (08:50)
[2018-01-18] MEDS: POTASSIUM CHL 20 MEQ TABCR PO SCH ×2 (08:50→17:07)
[2018-01-18] MEDS: ENOXAPARIN 40 MG/0.4ML SYR SC SCH (08:50)
[2018-01-18] MEDS: CYANOCOBALAMIN 1000 MCG TAB PO SCH (08:50)
[2018-01-18] MEDS: PANTOPRAZOLE SOD 40 MG TABEC PO SCH (08:50)
[2018-01-18] MEDS: ASCORBIC ACID 500 MG TAB PO SCH (08:51)
[2018-01-18] MEDS: NYSTATIN 100,000 U/GM PWD 15GM TP SCH ×2 (09:00→20:26)
[2018-01-18] MEDS: LIDOCAINE 5% OINT 35.44 GM OINT TP PRN (09:21)
[2018-01-18] MEDS: MORPHINE 4 MG/ML SDV IVP PRN ×2 (09:21→14:11)
--- NOTE | 2018-01-18 11:34 | General Surgery Progress Note ---
Subjective Progress Notes Subjective Patient without complaints. Physical Exam Vital Signs Date Time Temp Pulse Resp B/P (MAP) Pulse Ox O2 Delivery O2 Flow Rate FiO2 01/18/18 08:00 97.6 57 18 112/65 (81) 93 Room Air 01/14/18 16:50 91.0 Intake and Output 01/19/18 07:00 Intake Total 120 ml Balance 120 ml Intake Oral 120 ml General Appearance: Alert, Awake, No Acute Distress, Afebrile Extremities: Other (his left foot heel ulcer continues to granulate in. The plantar most ulcer is also filling in but there is still somewhat of a divot although the calcaneous is covered by thick soft tissue. No erythema or drainage.) Result Diagram: 01/16/18 1605 01/16/18 1605 Assessment and Plan Problems: (1) Decubitus ulcer, heel Status: Chronic Assessment & Plan: Wound vac in place. Continue NPWT and IV abx. I will look at the wounds on his left heel over the next week, will have to coordinate with wound care team and his vac dressing change. 01/04/18: Continue NPWT. I'll come up and inspect at next dressing change. In the mean time, keep foot elevated and continue IV abx for possible osteo in calcaneous bone. 01/07/18: Doing well. Continue NPWT and keep foot elevated. Will check back in on him later this week and will try and time visit so I can inspect his heel ulcer. 01/11/18: Doing well. The wound is continuing to improve. We'll continue with wound VAC and keeping his foot elevated. Will check back in on him next week. 01/15/18: Continues to do well. The wound continues to show improvement. The deepest ulcer on the plantar surface of his heel is even more shallow and filling in with granulation tissue. We'll continue with the wound VAC and keeping his foot elevated. I will check back in on him later this week or next week. Would like to keep him in the extended care facility until the ulcer is almost completely healed so as to prevent further problems with pressure from him sitting in his wheelchair after discharge. 01/18/18: Patient is doing very well. I'm very happy with how the wound is progressing. We will continue with negative pressure wound therapy and he will continue to avoid putting pressure on his heel. I would recommend continuing with IV antibiotics given his diagnosis of osteomyelitis. We will see how his CRP is trending. The soft tissue component of the ulcer is responding very well to current wound care measures. I will check in on him again next week. (2) MS (multiple sclerosis) Status: Chronic Condition Stable. Time Spent: < 30 min Problem Qualifiers (1) Decubitus ulcer, heel: Pressure ulcer stage: stage 3 Laterality: left Qualified Codes: L89.623 - Pressure ulcer of left heel, stage 3 CHRISTIAN ALCANTAR MD January 18, 2018 11:34
[2018-01-18 15:24] VITALS: BP 111/66
[2018-01-18] MEDS: QUEtiapine FUM 25 MG TAB PO SCH (20:25)
[2018-01-18] MEDS: GABAPENTIN 300 MG CAP PO SCH (20:25)
[2018-01-19] MEDS: IMIPENEM/CILASTA(*) 500MG VIAL 500 MG in NS(*) 0.9% 100 ML BAG 100 ML IVPB SCH ×4 (01:00→18:33)
[2018-01-19] MEDS: MORPHINE 4 MG/ML SDV IVP PRN ×3 (01:00→21:52)
[2018-01-19] MEDS: VANCOMYCIN(*) 1 GM VIAL 1 GM, VANCOMYCIN (*) 0.5 GM VIAL 0.5 GM in NS(*) 0.9% 250 ML BA... IVPB SCH ×2 (04:56→16:55)
[2018-01-19 07:59] VITALS: BP 107/58
[2018-01-19] MEDS: POTASSIUM CHL 20 MEQ TABCR PO SCH ×2 (08:25→17:28)
[2018-01-19] MEDS: ENOXAPARIN 40 MG/0.4ML SYR SC SCH (08:25)
[2018-01-19] MEDS: ASCORBIC ACID 500 MG TAB PO SCH (08:25)
[2018-01-19] MEDS: CHOLECALCIFEROL 1000 UNIT TAB PO SCH (08:26)
[2018-01-19] MEDS: CYANOCOBALAMIN 1000 MCG TAB PO SCH (08:26)
[2018-01-19] MEDS: PANTOPRAZOLE SOD 40 MG TABEC PO SCH (08:26)
[2018-01-19] MEDS: NYSTATIN 100,000 U/GM PWD 15GM TP SCH ×2 (08:26→21:53)
[2018-01-19 16:11] LABS: PLATELET COUNT, AUTOMATED 177 K/uL (150-450)
[2018-01-19 16:14] VITALS: BP 122/67
[2018-01-19] MEDS: GABAPENTIN 300 MG CAP PO SCH (21:51)
[2018-01-19] MEDS: QUEtiapine FUM 25 MG TAB PO SCH (21:51)
[2018-01-20] MEDS: IMIPENEM/CILASTA(*) 500MG VIAL 500 MG in NS(*) 0.9% 100 ML BAG 100 ML IVPB SCH ×4 (00:38→18:42)
[2018-01-20] MEDS: VANCOMYCIN(*) 1 GM VIAL 1 GM, VANCOMYCIN (*) 0.5 GM VIAL 0.5 GM in NS(*) 0.9% 250 ML BA... IVPB SCH ×2 (05:41→16:52)
[2018-01-20] MEDS: MORPHINE 4 MG/ML SDV IVP PRN ×2 (06:21→15:35)
[2018-01-20 07:15] VITALS: BP 109/70
[2018-01-20] MEDS: ENOXAPARIN 40 MG/0.4ML SYR SC SCH (08:22)
[2018-01-20] MEDS: NYSTATIN 100,000 U/GM PWD 15GM TP SCH ×2 (08:22→20:30)
[2018-01-20] MEDS: CHOLECALCIFEROL 1000 UNIT TAB PO SCH (08:22)
[2018-01-20] MEDS: PANTOPRAZOLE SOD 40 MG TABEC PO SCH (08:22)
[2018-01-20] MEDS: POTASSIUM CHL 20 MEQ TABCR PO SCH ×2 (08:22→17:12)
[2018-01-20] MEDS: CYANOCOBALAMIN 1000 MCG TAB PO SCH (08:22)
[2018-01-20] MEDS: ASCORBIC ACID 500 MG TAB PO SCH (08:22)
[2018-01-20 15:20] VITALS: BP 106/64
[2018-01-20] MEDS: GABAPENTIN 300 MG CAP PO SCH (20:29)
[2018-01-20] MEDS: QUEtiapine FUM 25 MG TAB PO SCH (20:30)
[2018-01-21] MEDS: IMIPENEM/CILASTA(*) 500MG VIAL 500 MG in NS(*) 0.9% 100 ML BAG 100 ML IVPB SCH ×4 (01:13→18:32)
[2018-01-21] MEDS: MORPHINE 4 MG/ML SDV IVP PRN ×2 (03:48→13:15)
[2018-01-21] MEDS: VANCOMYCIN(*) 1 GM VIAL 1 GM, VANCOMYCIN (*) 0.5 GM VIAL 0.5 GM in NS(*) 0.9% 250 ML BA... IVPB SCH (05:25)
[2018-01-21 07:20] VITALS: BP 105/73
[2018-01-21] MEDS: NYSTATIN 100,000 U/GM PWD 15GM TP SCH ×2 (08:26→21:02)
[2018-01-21] MEDS: ENOXAPARIN 40 MG/0.4ML SYR SC SCH (08:26)
[2018-01-21] MEDS: PANTOPRAZOLE SOD 40 MG TABEC PO SCH (08:26)
[2018-01-21] MEDS: POTASSIUM CHL 20 MEQ TABCR PO SCH ×2 (08:26→17:23)
[2018-01-21] MEDS: CHOLECALCIFEROL 1000 UNIT TAB PO SCH (08:26)
[2018-01-21] MEDS: CYANOCOBALAMIN 1000 MCG TAB PO SCH (08:26)
[2018-01-21] MEDS: ASCORBIC ACID 500 MG TAB PO SCH (08:26)
--- NOTE | 2018-01-21 08:56 | Medical Nutrition Therapy ---
Nutrition Anthropometrics Height (Inches): 73.00 Height (Calculated Centimeters: 185.080383 Weight (Pounds): 254 Weight (Calculated Kilograms): 115.326 BMI Calculated: 32.85 Marty Nutrition Score: Adequate Marty Nutrition Risk Score: 14 Dietary Referral Nutrition Risk Factors: Non-Healing Wound Nutrition Risk Comment: Physical Findings Physical Appearance: Obese BMI 30-39 Skin Appearance Skin Appearance: Edema Edema Location Modifier: Both Edema Location: Lower Extremity Type of Edema: Degree of Edema: 1+ Gastrointestinal Symptoms GI Symtoms: Tube Present: Bowel Sounds: Recent Bowel Pattern: Stool Characteristics: Nutritional Diagnosis Nutritional Risk Acuity 2: Abcess/Non-Healing Wound Nutritional Risk Acuity 4: Good Appetite Past Medical History: MS, gastric bypass, UTIs, GERD, anemia, MRSA Nutritional Acuity: 2-Moderate Nutrition Diagnosis: Increased Nutrient Needs Nutrition Etiology: Physiological Causes Nutrition Problem/Etiology/Sym: Increased Nutrient Needs related to increased demand for nutrients secondary to wound healing and infection AEB documented low food intake of 50%. Energy Requirement: 2735 ([place] adj for obesity X 1.2 SF) Protein Requirement: 112 (1gm/kg AW) Fluid Requirement: 2800 (25gm/kg) Diet Type: Diet as Tolerated EVI/REG Nutrition Intervention: Cont diet as ordered Do Not Serve Any of the Follow: Spinach Optional Order Time?: Yes (PT WOUD LIKE TO EAT BRFT AT 8:00) Additional Diet Restrictions: OFFER BASIL AT BRFT AND SUPPER PUT PROTEIN POWDER IN APPROPRIATE FOODS Diet Comment To RSA: BRFT AT 8:00 Nutrition Monitoring & Eval Nutrition Goals: Eat 75-100% Meal RD Patient Assessment Time: [address] Assessment Type: RD Re-Assessment Patient Nutrition Acuity: 2-Moderate Follow Up Date: January 29, 2018 Nutritional Comment: 12/28/17 Pt admitted with cellulitis and non healing decubitis ulcer (stage 3) on left heel and transfered to [facility]. Pt has hx of MS and gastric bypass. Class I obesity with BMI of 32.85. Alb 2.7. Receiving EVI and consuming 100% of meals. Will offer wound healing nutritional supplement and protein powder in appropritate foods to promote healing. Will cont to monitor and encourage intake. 01/08 Intake raning 75- 100%. Pt is up 1.2%. Alb has declined slightly to 3.1. Pt is consuming Basil most days. Will cont to monitor and encourage intake. 01/14 Pt continues EVI/REG consuming 50% of his meals with additonal protein powder added for wound healing. No new lab values at this time. Continue to julietteior pt progress and encourage intake. -MT 01/21 Pt continues on EVI/REG with oral intake of 100%. Pt continues to take protein supplement to help with wound healing. Pt wound is healing very well. Notable lab vaule this week is elevated random blood glucose 152 (01/19). Continue to evin pt progress and encourage intake. RAFIQ MONROE January 21, 2018 08:52
[2018-01-21] MEDS: ALTEPLASE RECOMB 2 MG VIAL IVP PRN (15:26)
[2018-01-21 16:19] LABS: PLATELET COUNT, AUTOMATED 117 K/uL (150-450)
[2018-01-21] MEDS: VANCOMYCIN(*) 1 GM VIAL 1 GM, VANCOMYCIN (*) 0.5 GM VIAL 0.25 GM in NS(*) 0.9% 250 ML B... IVPB SCH (17:16)
[2018-01-21] MEDS: GABAPENTIN 300 MG CAP PO SCH (21:02)
[2018-01-21] MEDS: QUEtiapine FUM 25 MG TAB PO SCH (21:02)
[2018-01-21 21:40] VITALS: BP 105/65
[2018-01-22] MEDS: IMIPENEM/CILASTA(*) 500MG VIAL 500 MG in NS(*) 0.9% 100 ML BAG 100 ML IVPB SCH ×4 (01:07→19:00)
[2018-01-22] MEDS: VANCOMYCIN(*) 1 GM VIAL 1 GM, VANCOMYCIN (*) 0.5 GM VIAL 0.25 GM in NS(*) 0.9% 250 ML B... IVPB SCH ×2 (04:51→16:53)
[2018-01-22 07:00] VITALS: BP 111/55
[2018-01-22] MEDS: POTASSIUM CHL 20 MEQ TABCR PO SCH ×2 (08:36→16:52)
[2018-01-22] MEDS: CYANOCOBALAMIN 1000 MCG TAB PO SCH (08:36)
[2018-01-22] MEDS: CHOLECALCIFEROL 1000 UNIT TAB PO SCH (08:36)
[2018-01-22] MEDS: ASCORBIC ACID 500 MG TAB PO SCH (08:36)
[2018-01-22] MEDS: NYSTATIN 100,000 U/GM PWD 15GM TP SCH ×2 (08:37→20:39)
[2018-01-22] MEDS: PANTOPRAZOLE SOD 40 MG TABEC PO SCH (08:37)
[2018-01-22] MEDS: ENOXAPARIN 40 MG/0.4ML SYR SC SCH (08:37)
[2018-01-22] MEDS: MORPHINE 4 MG/ML SDV IVP PRN ×2 (08:55→17:42)
[2018-01-22] MEDS: LIDOCAINE 5% OINT 35.44 GM OINT TP PRN (09:01)
--- NOTE | 2018-01-22 10:51 | General Surgery Progress Note ---
Subjective Progress Notes Subjective Patient without complaints Physical Exam Vital Signs Date Time Temp Pulse Resp B/P (MAP) Pulse Ox O2 Delivery O2 Flow Rate FiO2 01/22/18 07:10 94 Room Air 01/22/18 07:00 97.6 73 16 111/55 (73) Intake and Output 01/23/18 07:00 Intake Total 368 ml Balance 368 ml Intake Oral 240 ml IV Total 128 ml General Appearance: Alert, Awake, No Acute Distress, Afebrile Extremities: Other (the wound on his left heel and 10 E. to improve. The craters have filled in with granulation tissue and her only now mild divots compared to the surrounding wounds but it all is covered in granulation tissue and skin is growing in from the edges. It is much smaller than when I last saw it. No erythema.) Result Diagram: 01/21/18 1604 01/21/18 1604 Assessment and Plan Problems: (1) Decubitus ulcer, heel Status: Chronic Assessment & Plan: Wound vac in place. Continue NPWT and IV abx. I will look at the wounds on his left heel over the next week, will have to coordinate with wound care team and his vac dressing change. 01/04/18: Continue NPWT. I'll come up and inspect at next dressing change. In the mean time, keep foot elevated and continue IV abx for possible osteo in calcaneous bone. 01/07/18: Doing well. Continue NPWT and keep foot elevated. Will check back in on him later this week and will try and time visit so I can inspect his heel ulcer. 01/11/18: Doing well. The wound is continuing to improve. We'll continue with wound VAC and keeping his foot elevated. Will check back in on him next week. 01/15/18: Continues to do well. The wound continues to show improvement. The deepest ulcer on the plantar surface of his heel is even more shallow and filling in with granulation tissue. We'll continue with the wound VAC and keeping his foot elevated. I will check back in on him later this week or next week. Would like to keep him in the extended care facility until the ulcer is almost completely healed so as to prevent further problems with pressure from him sitting in his wheelchair after discharge. 01/18/18: Patient is doing very well. I'm very happy with how the wound is progressing. We will continue with negative pressure wound therapy and he will continue to avoid putting pressure on his heel. I would recommend continuing with IV antibiotics given his diagnosis of osteomyelitis. We will see how his CRP is trending. The soft tissue component of the ulcer is responding very well to current wound care measures. I will check in on him again next week. 01/22/18: This continues to heal very well. We'll continue to avoid pressure on the ulcer and continue with negative pressure wound therapy. I am hopeful that he will be able to go home next week and we can continue wound care as an outpatient. (2) MS (multiple sclerosis) Status: Chronic Condition Stable Time Spent: < 30 min Problem Qualifiers (1) Decubitus ulcer, heel: Pressure ulcer stage: stage 3 Laterality: left Qualified Codes: L89.623 - Pressure ulcer of left heel, stage 3 CHRISTIAN ALCANTAR MD January 22, 2018 10:51
[2018-01-22] MEDS: ACETAMINOPHEN 325 MG TAB PO PRN (11:36)
[2018-01-22] MEDS: NS(*) 0.9% 500 ML BAG 500 ML IV PRN (12:57)
[2018-01-22 15:41] VITALS: BP 140/73
[2018-01-22] MEDS: GABAPENTIN 300 MG CAP PO SCH (20:39)
[2018-01-22] MEDS: QUEtiapine FUM 25 MG TAB PO SCH (20:39)
[2018-01-23] MEDS: IMIPENEM/CILASTA(*) 500MG VIAL 500 MG in NS(*) 0.9% 100 ML BAG 100 ML IVPB SCH ×4 (01:29→19:00)
[2018-01-23] MEDS: VANCOMYCIN(*) 1 GM VIAL 1 GM, VANCOMYCIN (*) 0.5 GM VIAL 0.25 GM in NS(*) 0.9% 250 ML B... IVPB SCH ×2 (04:41→17:48)
[2018-01-23] MEDS: MORPHINE 4 MG/ML SDV IVP PRN ×2 (05:49→19:51)
[2018-01-23 08:30] VITALS: BP 118/72
[2018-01-23] MEDS: ENOXAPARIN 40 MG/0.4ML SYR SC SCH (08:33)
[2018-01-23] MEDS: PANTOPRAZOLE SOD 40 MG TABEC PO SCH (08:33)
[2018-01-23] MEDS: CYANOCOBALAMIN 1000 MCG TAB PO SCH (08:34)
[2018-01-23] MEDS: ASCORBIC ACID 500 MG TAB PO SCH (08:34)
[2018-01-23] MEDS: POTASSIUM CHL 20 MEQ TABCR PO SCH ×2 (08:34→17:46)
[2018-01-23] MEDS: CHOLECALCIFEROL 1000 UNIT TAB PO SCH (08:34)
[2018-01-23] MEDS: NYSTATIN 100,000 U/GM PWD 15GM TP SCH (09:00)
--- NOTE | 2018-01-23 13:12 | Miscellaneous Provider Note ---
Miscellaneous Provider Note Note Patient on pass and not available to see. Doing well per staff. Vanco trough ordered for 1600. Will check CBC and BMP also. MARVA MALLOY MD January 23, 2018 13:12
[2018-01-23 16:12] LABS: PLATELET COUNT, AUTOMATED 148 K/uL (150-450)
[2018-01-23 17:33] VITALS: BP 133/90
[2018-01-23] MEDS: GABAPENTIN 300 MG CAP PO SCH (20:49)
[2018-01-23] MEDS: QUEtiapine FUM 25 MG TAB PO SCH (20:50)
[2018-01-24] MEDS: IMIPENEM/CILASTA(*) 500MG VIAL 500 MG in NS(*) 0.9% 100 ML BAG 100 ML IVPB SCH ×4 (01:15→18:25)
[2018-01-24] MEDS: MORPHINE 4 MG/ML SDV IVP PRN ×3 (01:15→13:04)
[2018-01-24] MEDS: VANCOMYCIN(*) 1 GM VIAL 1 GM, VANCOMYCIN (*) 0.5 GM VIAL 0.25 GM in NS(*) 0.9% 250 ML B... IVPB SCH ×2 (05:03→16:50)
[2018-01-24] MEDS: CYANOCOBALAMIN 1000 MCG TAB PO SCH (08:27)
[2018-01-24] MEDS: PANTOPRAZOLE SOD 40 MG TABEC PO SCH (08:27)
[2018-01-24] MEDS: CHOLECALCIFEROL 1000 UNIT TAB PO SCH (08:27)
[2018-01-24] MEDS: ASCORBIC ACID 500 MG TAB PO SCH (08:27)
[2018-01-24] MEDS: POTASSIUM CHL 20 MEQ TABCR PO SCH ×2 (08:27→16:50)
[2018-01-24] MEDS: ENOXAPARIN 40 MG/0.4ML SYR SC SCH (08:27)
[2018-01-24 09:00] VITALS: BP 134/67
[2018-01-24 18:33] VITALS: BP 140/70
[2018-01-24] MEDS: GABAPENTIN 300 MG CAP PO SCH (20:41)
[2018-01-24] MEDS: QUEtiapine FUM 25 MG TAB PO SCH (20:41)
[2018-01-25] MEDS: IMIPENEM/CILASTA(*) 500MG VIAL 500 MG in NS(*) 0.9% 100 ML BAG 100 ML IVPB SCH ×4 (01:10→19:32)
[2018-01-25] MEDS: MORPHINE 4 MG/ML SDV IVP PRN ×3 (04:44→21:09)
[2018-01-25] MEDS: VANCOMYCIN(*) 1 GM VIAL 1 GM, VANCOMYCIN (*) 0.5 GM VIAL 0.25 GM in NS(*) 0.9% 250 ML B... IVPB SCH ×2 (04:45→17:25)
[2018-01-25 07:40] VITALS: BP 102/66
[2018-01-25] MEDS: PANTOPRAZOLE SOD 40 MG TABEC PO SCH (08:24)
[2018-01-25] MEDS: CHOLECALCIFEROL 1000 UNIT TAB PO SCH (08:24)
[2018-01-25] MEDS: CYANOCOBALAMIN 1000 MCG TAB PO SCH (08:24)
[2018-01-25] MEDS: POTASSIUM CHL 20 MEQ TABCR PO SCH ×2 (08:24→17:23)
[2018-01-25] MEDS: ASCORBIC ACID 500 MG TAB PO SCH (08:24)
[2018-01-25] MEDS: ENOXAPARIN 40 MG/0.4ML SYR SC SCH (08:25)
[2018-01-25] MEDS: LIDOCAINE 5% OINT 35.44 GM OINT TP PRN (08:41)
--- NOTE | 2018-01-25 13:33 | PT ECF NOTE ---
Type of Note: Progress Note Primary Medical Diagnosis: Cellulitis, s/p I&D of L) heel ulcers Physical Therapy Evaluation Date: 12/28/17 SUBJECTIVE: Prior Hospitalization: [facility] 12/25/17-12/28/17 Prior Level of Function: Pt utilizes w/c for all mobility and completes stand pivot transfers to/from various surfaces independently, he reports that he has been non-ambulatory x5 years Prior Living Status: Single level house (w/c accessible), Alone Community Services: Independent Home Accessibility: All needs on one level Equipment Owned: Front wheeled walker, Wheelchair, BSC Medical Complications/Past Medical History: MS (diagnosed at age 20), see EMR for details Psychosocial Support: Significant other, "Tika" Pain Scale (0-10): None reported at time of progress note OBJECTIVE: Strength: Right Lower Extremity: DF: <3/5 Knee flexion: 4/5 Knee extension: <3/5 Hip flexion: <3/5 Left Lower Extremity: DF: <3/5 (pt reports significant foot drop on this side) Knee flexion: 4/5 Knee extension: <3/5 Hip flexion: <3/5 ROM: Flexor spasticity present in bilateral LEs, limiting knee extension Sensation: Pt reports WNL Other Neuro findings: Consistent with diagnosis of MS Weight bearing: Per Dr. Sandoval, pt is WBAT through forefoot of the L) LE, NWB through heel on L) LE Bed Mobility: Brennon with use of bed rail Transfers: CGA/SBA stand pivot transfers to/from w/c, occasionally requires min-modA with initial transfers Gait: n/a Stairs: n/a ASSESSMENT: Pt continues to make progress towards functional goals with updated goals including wound vac tubing management and donning/doffing offloading boot. The patient is demonstrating increased independence with these higher level functional tasks, but continues to require occasional assistance to ensure safe management of tubing, and will require further training on boot use. Recommend continued skilled PT instruction to ensure maximal independence prior to d/c home alone. Wound Assessment (01/25/18): Wounds demonstrate good, healthy granulation tissue, with no indication for debridement at this time. PT cleansed the area with sterile saline and gauze and lidocaine was applied prior to dressing application [id number]. Periwound skin demonstrates slight maceration, but no further breakdown. Skin was treated with marathon skin protectant and then draped in a window pane fashion. Two pieces of black granufoam were used and a good seal was obtained with 110 mmHg, with no reports of pain from the patient. Continue with POC. Problem List/Current Limitations: Pain Decreased WB Decreased activity adamaris Decreased strength Decreased ROM Decreased balance Generalized weakness Abnormal tonal influence UPDATED Short Term Goals: (all ongoing, pt making progress) 1. Pt to be fitted with off loading boot for both bed and W/C use. 2. Pt to be indep with don/doff of boot for off loading and protection of wound vac tubing during all ADL's. 3. Pt to demo indep with management of portable wound vac device, ensuring that tubing is not kinked or dislodged during transfers. 4. Pt to complete bed mobility with HOB flat and no AD with Brennon 5. Pt to complete stand pivot transfers to/from w/c and BSC with Brennon and maintenance of WB status. Public Relations Coordinator Goals: Pt to d/c home at [facility] Patient Goals: Discharge home Rehabilitation Prognosis: Good Barriers for Discharge: High level of independence required to d/c to prior living setting, weightbearing restriction of L) LE PLAN: The patient will benefit from skilled physical therapy services 5 times per week for 2 weeks including: Therapeutic Exercise Therapeutic Activities Transfer Training Manual Therapy Safety Training Neuromuscular Re-educ. Pt/Caregiver Training Bed Mobility Wound Care Thank you for this referral. If you have any questions, concerns, or comments about this report or plan, please contact me at . Colleen Alfonso, PT, DPT MTDD
[2018-01-25 17:00] VITALS: BP 115/74
[2018-01-25] MEDS: GABAPENTIN 300 MG CAP PO SCH (21:03)
[2018-01-25] MEDS: QUEtiapine FUM 25 MG TAB PO SCH (21:03)
[2018-01-26] MEDS: IMIPENEM/CILASTA(*) 500MG VIAL 500 MG in NS(*) 0.9% 100 ML BAG 100 ML IVPB SCH ×4 (01:02→18:16)
[2018-01-26] MEDS: NS(*) 0.9% 500 ML BAG 500 ML IV PRN (05:15)
[2018-01-26] MEDS: VANCOMYCIN(*) 1 GM VIAL 1 GM, VANCOMYCIN (*) 0.5 GM VIAL 0.25 GM in NS(*) 0.9% 250 ML B... IVPB SCH ×2 (05:15→17:02)
[2018-01-26 08:00] VITALS: BP 107/71
[2018-01-26] MEDS: CHOLECALCIFEROL 1000 UNIT TAB PO SCH (08:31)
[2018-01-26] MEDS: POTASSIUM CHL 20 MEQ TABCR PO SCH ×2 (08:31→17:03)
[2018-01-26] MEDS: ASCORBIC ACID 500 MG TAB PO SCH (08:31)
[2018-01-26] MEDS: PANTOPRAZOLE SOD 40 MG TABEC PO SCH (08:31)
[2018-01-26] MEDS: CYANOCOBALAMIN 1000 MCG TAB PO SCH (08:31)
[2018-01-26] MEDS: ENOXAPARIN 40 MG/0.4ML SYR SC SCH (08:32)
[2018-01-26 15:00] VITALS: BP 138/76
[2018-01-26] MEDS: MORPHINE 4 MG/ML SDV IVP PRN (19:28)
[2018-01-26] MEDS: GABAPENTIN 300 MG CAP PO SCH (20:39)
[2018-01-26] MEDS: QUEtiapine FUM 25 MG TAB PO SCH (20:39)
[2018-01-27] MEDS: IMIPENEM/CILASTA(*) 500MG VIAL 500 MG in NS(*) 0.9% 100 ML BAG 100 ML IVPB SCH ×4 (01:04→19:20)
[2018-01-27] MEDS: VANCOMYCIN(*) 1 GM VIAL 1 GM, VANCOMYCIN (*) 0.5 GM VIAL 0.25 GM in NS(*) 0.9% 250 ML B... IVPB SCH ×2 (05:01→17:11)
[2018-01-27 07:25] VITALS: BP 124/70
[2018-01-27] MEDS: CYANOCOBALAMIN 1000 MCG TAB PO SCH (08:23)
[2018-01-27] MEDS: PANTOPRAZOLE SOD 40 MG TABEC PO SCH (08:23)
[2018-01-27] MEDS: POTASSIUM CHL 20 MEQ TABCR PO SCH ×2 (08:23→17:34)
[2018-01-27] MEDS: ENOXAPARIN 40 MG/0.4ML SYR SC SCH (08:23)
[2018-01-27] MEDS: CHOLECALCIFEROL 1000 UNIT TAB PO SCH (08:23)
[2018-01-27] MEDS: ASCORBIC ACID 500 MG TAB PO SCH (08:23)
--- NOTE | 2018-01-27 10:25 | Medical Nutrition Therapy ---
Nutrition Anthropometrics Height (Inches): 73.00 Height (Calculated Centimeters: [phone] Weight (Pounds): 253 Weight (Calculated Kilograms): 114.986 Marty Nutrition Score: Adequate Marty Nutrition Risk Score: 16 Dietary Referral Nutrition Risk Factors: Non-Healing Wound Nutrition Risk Comment: Nutritional Diagnosis Nutritional Risk Acuity 2: Abcess/Non-Healing Wound Nutritional Risk Acuity 4: Good Appetite Past Medical History: MS, gastric bypass, UTIs, GERD, anemia, MRSA Nutritional Acuity: 2-Moderate Nutrition Diagnosis: Increased Nutrient Needs Nutrition Etiology: Physiological Causes Nutrition Problem/Etiology/Sym: Increased Nutrient Needs related to increased demand for nutrients secondary to wound healing and infection AEB documented low food intake of 50%. Energy Requirement: 2735 (Fletcher-Corrigan adj for obesity X 1.2 SF) Protein Requirement: 112 (1gm/kg AW) Fluid Requirement: 2800 (25gm/kg) Diet Type: Diet as Tolerated EVI/REG Nutrition Intervention: Cont diet as ordered, Between meal supplement Do Not Serve Any of the Follow: Spinach Optional Order Time?: Yes (PT WOUD LIKE TO EAT BRFT AT 8:00) Additional Diet Restrictions: OFFER BASIL AT BRFT AND SUPPER PUT PROTEIN POWDER IN APPROPRIATE FOODS Diet Comment To RSA: BRFT AT 8:00 Nutrition Monitoring & Eval Nutrition Goals: Eat 75-100% Meal RD Patient Assessment Time: [address] Assessment Type: RD Re-Assessment Patient Nutrition Acuity: 2-Moderate Follow Up Date: Feb 05, 2018 Nutritional Comment: 12/28/17 Pt admitted with cellulitis and non healing decubitis ulcer (stage 3) on left heel and transfered to [facility]. Pt has hx of MS and gastric bypass. Class I obesity with BMI of 32.85. Alb 2.7. Receiving EVI and consuming 100% of meals. Will offer wound healing nutritional supplement and protein powder in appropritate foods to promote healing. Will cont to monitor and encourage intake. 01/08 Intake raning 75- 100%. Pt is up 1.2%. Alb has declined slightly to 3.1. Pt is consuming Basil most days. Will cont to monitor and encourage intake. 01/14 Pt continues EVI/REG consuming 50% of his meals with additonal protein powder added for wound healing. No new lab values at this time. Continue to montior pt progress and encourage intake. -MT 01/21 Pt continues on EVI/REG with oral intake of 100%. Pt continues to take protein supplement to help with wound healing. Pt wound is healing very well. Notable lab vaule this week is elevated random blood glucose 152 (01/19). Continue to montior pt progress and encourage intake. MT 01/27 Pt cont on regular diet. Intake average 73 past 3 days. Pt usually is drinking 2 Basil/day. Alb 3.5. Wt is stable. Pt cont on wound vac. Cont to monitor and encoruage intake. MICHEAL HANSON January 27, 2018 10:25
--- NOTE | 2018-01-27 13:01 | Consultant Pharmacy Review ---
Brake [employer] Review Medication Review Do All Mecications have a Diag: Yes (30 day pharmacy review..Labs: periodic electrolyte levels, vancomycin troughs. Patient has received a dose of) Comments Regarding the Review 30 day pharmacy review.. Labs: periodic electrolyte levels, vancomycin troughs. Patient has received a dose of pneumococcal vaccine (type not specified). He may receive the remaining vaccine one year after the original was given. MARVA PEDRAZA January 27, 2018 13:01
[2018-01-27 16:29] VITALS: BP 134/76
[2018-01-27] MEDS: MORPHINE 4 MG/ML SDV IVP PRN (16:38)
[2018-01-27] MEDS: QUEtiapine FUM 25 MG TAB PO SCH (21:05)
[2018-01-27] MEDS: GABAPENTIN 300 MG CAP PO SCH (21:06)
[2018-01-28] MEDS: IMIPENEM/CILASTA(*) 500MG VIAL 500 MG in NS(*) 0.9% 100 ML BAG 100 ML IVPB SCH ×4 (00:49→18:17)
[2018-01-28] MEDS: VANCOMYCIN(*) 1 GM VIAL 1 GM, VANCOMYCIN (*) 0.5 GM VIAL 0.25 GM in NS(*) 0.9% 250 ML B... IVPB SCH ×2 (05:10→16:43)
[2018-01-28] MEDS: MORPHINE 4 MG/ML SDV IVP PRN (06:34)
[2018-01-28] MEDS: POTASSIUM CHL 20 MEQ TABCR PO SCH ×2 (08:49→17:37)
[2018-01-28] MEDS: CHOLECALCIFEROL 1000 UNIT TAB PO SCH (08:50)
[2018-01-28] MEDS: PANTOPRAZOLE SOD 40 MG TABEC PO SCH (08:50)
[2018-01-28] MEDS: ENOXAPARIN 40 MG/0.4ML SYR SC SCH (08:50)
[2018-01-28] MEDS: ASCORBIC ACID 500 MG TAB PO SCH (08:50)
[2018-01-28] MEDS: CYANOCOBALAMIN 1000 MCG TAB PO SCH (08:50)
[2018-01-28 09:32] VITALS: BP 114/71
[2018-01-28 19:25] VITALS: BP 131/86
[2018-01-28] MEDS: QUEtiapine FUM 25 MG TAB PO SCH (20:31)
[2018-01-28] MEDS: GABAPENTIN 300 MG CAP PO SCH (20:31)
[2018-01-29] MEDS: IMIPENEM/CILASTA(*) 500MG VIAL 500 MG in NS(*) 0.9% 100 ML BAG 100 ML IVPB SCH ×4 (01:15→19:09)
[2018-01-29] MEDS: MORPHINE 4 MG/ML SDV IVP PRN ×2 (02:10→12:54)
[2018-01-29] MEDS: VANCOMYCIN(*) 1 GM VIAL 1 GM, VANCOMYCIN (*) 0.5 GM VIAL 0.25 GM in NS(*) 0.9% 250 ML B... IVPB SCH ×2 (04:50→17:38)
[2018-01-29 07:35] VITALS: BP 108/64
[2018-01-29] MEDS: LIDOCAINE 5% OINT 35.44 GM OINT TP PRN (08:46)
[2018-01-29] MEDS: CYANOCOBALAMIN 1000 MCG TAB PO SCH (08:47)
[2018-01-29] MEDS: PANTOPRAZOLE SOD 40 MG TABEC PO SCH (08:47)
[2018-01-29] MEDS: ASCORBIC ACID 500 MG TAB PO SCH (08:47)
[2018-01-29] MEDS: ENOXAPARIN 40 MG/0.4ML SYR SC SCH (08:47)
[2018-01-29] MEDS: CHOLECALCIFEROL 1000 UNIT TAB PO SCH (08:47)
[2018-01-29] MEDS: POTASSIUM CHL 20 MEQ TABCR PO SCH ×2 (08:48→17:38)
[2018-01-29 16:00] VITALS: BP 125/57
[2018-01-29] MEDS: GABAPENTIN 300 MG CAP PO SCH (20:58)
[2018-01-29] MEDS: QUEtiapine FUM 25 MG TAB PO SCH (20:58)
[2018-01-30] MEDS: IMIPENEM/CILASTA(*) 500MG VIAL 500 MG in NS(*) 0.9% 100 ML BAG 100 ML IVPB SCH ×3 (01:39→12:24)
[2018-01-30] MEDS: MORPHINE 4 MG/ML SDV IVP PRN (02:31)
[2018-01-30] MEDS: VANCOMYCIN(*) 1 GM VIAL 1 GM, VANCOMYCIN (*) 0.5 GM VIAL 0.25 GM in NS(*) 0.9% 250 ML B... IVPB SCH (04:36)
[2018-01-30] MEDS: NS(*) 0.9% 500 ML BAG 500 ML IV PRN (04:48)
[2018-01-30 07:40] VITALS: BP 105/70
[2018-01-30] MEDS: CHOLECALCIFEROL 1000 UNIT TAB PO SCH (08:26)
[2018-01-30] MEDS: ENOXAPARIN 40 MG/0.4ML SYR SC SCH (08:26)
[2018-01-30] MEDS: PANTOPRAZOLE SOD 40 MG TABEC PO SCH (08:27)
[2018-01-30] MEDS: POTASSIUM CHL 20 MEQ TABCR PO SCH (08:27)
[2018-01-30] MEDS: ASCORBIC ACID 500 MG TAB PO SCH (08:27)
[2018-01-30] MEDS: CYANOCOBALAMIN 1000 MCG TAB PO SCH (08:27)
[2018-01-30] MEDS ORDERED: GABA-549 PO (13:38)
--- NOTE | 2018-01-30 13:43 | Hospitalist Depart ---
Discharge Summary Reason for Hosp/Final Diag: (1) Decubitus ulcer, heel Status: Chronic Hospital Course & Plan: He was admitted with cellulitis and decubitus ulcer to the left heel. Dr. Alcantar performed surgery and a wound was placed. He was initially treated with IV vancomycin and Primaxin. His wound improved and the wound vac was discontinued as well as the antibiotics. The patient was discharged with ongoing wound care through Home Health. He is to follow up with Dr. Alcantar after discharge as well. (2) GERD (gastroesophageal reflux disease) Status: Chronic Hospital Course & Plan: He was placed on pantoprazole. He will continue with Omeprazole at discharge. (3) MS (multiple sclerosis) Status: Chronic Hospital Course & Plan: He is on Tysabri 300mg IV q 4 weekly. He had been having increased tremors and spasms in his legs. He spoke with his neurologist who recommended doubling his Gabapentin. His gabapentin dose was increased during his stay with no benefit so the dose was decreased back to his prior level. (4) Dyssomnia Status: Chronic Hospital Course & Plan: He was continued on chronic treatment with Seroquel for this. He was also continued on gabapentin at . (5) Restless leg syndrome Status: Chronic Hospital Course & Plan: Increasing the gabapentin did not help. He has an allergy to ropinirole. Klonopin was added at without improvement as well so was discontinued. Departure Weight (Pounds): 253 Weight (Ounces): 8.0 Item Value Date Time Erythrocyte Sedimentation Rate 8 mm/HOUR 01/08/18 0606 Item Value Date Time C-Reactive Protein 2.5 mg/dl H 12/29/17 1634 C-Reactive Protein 2.1 mg/dl H 01/01/18 1605 C-Reactive Protein 1.2 mg/dl H 01/04/18 0605 C-Reactive Protein 1.9 mg/dl H 01/08/18 0606 C-Reactive Protein 1.7 mg/dl H 01/16/18 1605 C-Reactive Protein 1.3 mg/dl H 01/21/18 1604 Condition: Improved Discharge: Home, Home Health PT/OT Follow Up For: PT For Strengthening, OT For ADL's Home Health RN Follow Up For: Nursing Assessment, Wound [facility] MANAGER TRAINING Follow Up For: ADL Assistance Time Spent: < 30 min Discharge Instructions Home Meds Active Scripts Oxycodone Hcl/Acetaminophen (PERCOCET 5-325 MG TABLET) 1 Each Tablet, 1-2 EACH PO Q6H Y for PAIN, #40 TAB Prov:MARVA MALLOY MD 01/30/18 Gabapentin (GABAPENTIN) 300 Mg Capsule, 300 MG PO HS, #30 CAPSULE 1 Refill Prov:MARVA MALLOY MD 01/30/18 Reported Medications Quetiapine Fumarate (SEROQUEL) 50 Mg Tablet, 50 MG PO QHS 12/25/17 Cyanocobalamin (Vitamin B-12) (Vitamin B-12) 1,000 Mcg Capsule, 1000 MCG PO DAILY 12/25/17 Cholecalciferol (Vitamin D3) (VITAMIN D3) 1,000 Unit Tablet, 1000 UNIT PO DAILY , TAB 12/25/17 Ascorbic Acid (VITAMIN C) 500 Mg Tablet, 1000 MG PO DAILY, TAB 12/25/17 Natalizumab (TYSABRI) 300 Mg/15 Ml Injs, 300 MG IV [id number] 10/07/13 Omeprazole Magnesium (Prilosec Otc) 20 Mg Tablet.dr, 40 MG PO QDAY, 0 Refills 07/04/11 Discontinued Reported Medications Gabapentin (GABAPENTIN) 300 Mg Capsule, 300 MG PO DAILY, CAPSULE 12/25/17 Follow up Referrals: Family Practice - In One Month @ [facility] with Christian Ramírez Md Diet: Regular Activity: As Tolerated Special Instructions: Follow up with Dr. Alcantar as recommended. Conduct regular skin assessments. Copies to: CHRISTIAN RAMÍREZ MD; CHRISTIAN ALCANTAR MD Venous Thromboembolism VTE Risk Physician Assess for VTE Risk: Yes Patient's VTE Risk: Low VTE Diagnostic Test 2 Days Prior to Admit: No Antithrombotics Is Pt On Any Antithrombotics?: Yes (Will be DCd on discharge.) [id number] Certification Face to Face Home Health Certification Institutional Provider conducted the ialh-ox-wzms encounter. Electronic Undersigning Physician Certifies Home Health. I certify that the patient has been under my care and that I had a gvxj-[id number] encounter that meets the physician axtw-cp-qyih encounter requirements with this patient. This patient is home-bound due to safety issues and continues to require assistance with ADL's. I certify that based on my findings, that Nursing, Aides and the following Home Health services are medically necessary: Wound care, PT Medical Necessity: Nursing, Rehab Date Face to Face Conducted: January 30, 2018 Problem Qualifiers (1) Decubitus ulcer, heel: Pressure ulcer stage: stage 3 Laterality: left Qualified Codes: L89.623 - Pressure ulcer of left heel, stage 3 MARVA MALLOY MD January 30, 2018 13:43
[2018-01-30] MEDS ORDERED: OXYC-865 PO (14:07)
--- NOTE | 2018-01-30 16:07 | PT ECF NOTE ---
Type of Note: Discharge Summary Primary Medical Diagnosis: Cellulitis, s/p I&D of L) heel ulcers Physical Therapy Evaluation Date: 12/28/17 SUBJECTIVE: Prior Hospitalization: [facility] 12/25/17-12/28/17 Prior Level of Function: Pt utilizes w/c for all mobility and completes stand pivot transfers to/from various surfaces independently, he reports that he has been non-ambulatory x5 years Prior Living Status: Single level house (w/c accessible), Alone Community Services: Independent Home Accessibility: All needs on one level Equipment Owned: Front wheeled walker, Wheelchair, BSC Medical Complications/Past Medical History: MS (diagnosed at age 20), see EMR for details Psychosocial Support: Significant other, "Tika" Pain Scale (0-10): None reported at time of progress note OBJECTIVE: Strength: Right Lower Extremity: DF: <3/5 Knee flexion: 4/5 Knee extension: <3/5 Hip flexion: <3/5 Left Lower Extremity: DF: <3/5 (pt reports significant foot drop on this side) Knee flexion: 4/5 Knee extension: <3/5 Hip flexion: <3/5 ROM: Flexor spasticity present in bilateral LEs, limiting knee extension Sensation: Pt reports WNL Other Neuro findings: Consistent with diagnosis of MS Weight bearing: Per Dr. Sandoval, pt is WBAT through forefoot of the L) LE, NWB through heel on L) LE Bed Mobility: Brennon with use of bed rail Transfers: Brennon with good management of wound VAC tubing Gait: n/a Stairs: n/a ASSESSMENT: Pt has met PT goals and is safe to d/c home from a mobility standpoint when medically appropriate. Pt completed pivot transfer from bed to w /c with use of a single walker, pt demonstrated good ability to manage wound VAC tubing and maintain NWB status of the L) heel with Brennon. PT instruction for STS transfers in // bars with pt demonstrating Brennon with management of LE clothing. Pt is unable to independently florence offloading boot at this time and it continues to place pressure on the wound vac dressing. Pt plans to take home the boot and use as appropriate in the future. He will offload the heel with towels fastened together upon d/c home. [facility] services are in place to continue with wound VAC dressing changes. He will f/u with Dr. Sandoval as an outpatient Problem List/Current Limitations: Pain Decreased WB Decreased activity adamaris Decreased strength Decreased ROM Decreased balance Generalized weakness Abnormal tonal influence UPDATED Short Term Goals: 1. Pt to be fitted with off loading boot for both bed and W/C use. ( discontinued) 2. Pt to be indep with don/doff of boot for off loading and protection of wound vac tubing during all ADL's. (discontinued) 3. Pt to demo indep with management of portable wound vac device, ensuring that tubing is not kinked or dislodged during transfers. (met) 4. Pt to complete bed mobility with HOB flat and no AD with Brennon (met) 5. Pt to complete stand pivot transfers to/from w/c and BSC with Brennon and maintenance of WB status. (met) Exhibit Technician Goals: Pt to d/c home at [facility] (met) Patient Goals: Discharge home (met) PLAN: The patient will discharge home with [facility] services in place to continue with management of wound VAC dressing changes. Thank you for this referral. If you have any questions, concerns, or comments about this report or plan, please contact me at . Colleen Alfonso, PT, DPT BRITTD
== END 2018-01-30 15:30 | disposition home health service (06) | DRG 592 ==
LOC: ECF 14:53
PROVIDERS: ADMIT Surgery; ATTEND Surgery
PROC: 0JDR3ZZ Extraction of Left Foot Subcutaneous Tissue and Fascia, Percutaneous Approach (ICD-10-PCS; principal; 2018-01-01)
PROC: 0JDR3ZZ Extraction of Left Foot Subcutaneous Tissue and Fascia, Percutaneous Approach (ICD-10-PCS; 2018-01-15)
DX: L89.623 Pressure ulcer of left heel, stage 3 (principal); L03.116 Cellulitis of left lower limb; M86.9 Osteomyelitis, unspecified; K21.9 Gastro-esophageal reflux disease without esophagitis; G35 Multiple sclerosis; G47.9 Sleep disorder, unspecified; G25.81 Restless legs syndrome; F17.210 Nicotine dependence, cigarettes, uncomplicated; Z98.84 Bariatric surgery status; Z88.8 Allergy status to other drugs, medicaments and biological substances; Z86.14 Personal history of Methicillin resistant Staphylococcus aureus infection
CPT/HCPCS: 36415; 80202; 82040; 82247; 82310; 82374; 82435; 82565; 82947; 84075; 84132; 84155; 84295; 84450; 84460; 84520; 85025; 85651; 86140; 97161; 97166; 97605; J0743; J1642; J1650; J2270; J2997; J3370; J7040; J7050

== ENCOUNTER 2018-02-19 20:06 | Emergency (ER) | payer BC ==
[2017-12-28 19:13] VITALS: Wt 113.4 kg
[~2018-02-19 20:06] MED LIST changes: +OXYC-865 PO
--- NOTE | 2018-02-19 20:48 | ER Report ---
History and Physical Time Seen By MD: 20:14 Hx. of Stated Complaint: PATIENT STATES THAT HE STARTED COUGHING UP BLOOD THIS AM; STATES THAT ABOUT AN HOUR AGO HE STARTED COUGHING UP BLOOD AGAIN; PATIENT ALSO STATES THAT HE THINKS HE HAS A URINARY TRACT INFECTION HPI/ROS CHIEF COMPLAINT: Hemoptysis HISTORY OF PRESENT ILLNESS: 52-year-old male presents via wheelchair to the ER. Patient states she been having a coughing fit last night. This morning when he checked his sputum. There was some blood-tinged sputum. Patient's on no blood thinners. Patient was recently admitted to the hospital for a foot wound ulcer infection and had surgery. He was discharged proximal he 3 weeks ago after extensive treatment with IV antibiotics. He notes no chest pain. He notes no fever. He thinks he also may have a urinary tract infection. Patient self catheterizes. REVIEW OF SYSTEMS: Respiratory: As above Cardiovascular: No chest pain, no palpitations. Gastrointestinal: No vomiting, no abdominal pain. Musculoskeletal: No back pain. Allergies: Coded Allergies: black walnut (Verified Allergy, Intermediate, roof of mouth blisters, 01/22) ropinirole (Verified Allergy, Mild, itching, cold sweat, sob, 01/22/17) Home Meds Active Scripts Levofloxacin 500 Mg Tab (LEVAQUIN 500 MG TAB) 500 Mg Tablet, 500 MG PO DAILY for infection, #6 TAB Prov:MANOLO BERNARDO DO 02/19/18 Oxycodone Hcl/Acetaminophen (PERCOCET 5-325 MG TABLET) 1 Each Tablet, 1-2 EACH PO Q6H Y for PAIN, #40 TAB Prov:MARVA MALLOY MD 01/30/18 Gabapentin (GABAPENTIN) 300 Mg Capsule, 300 MG PO HS, #30 CAPSULE 1 Refill Prov:MARVA MALLOY MD 01/30/18 Reported Medications Quetiapine Fumarate (SEROQUEL) 50 Mg Tablet, 50 MG PO QHS 12/25/17 Cyanocobalamin (Vitamin B-12) (Vitamin B-12) 1,000 Mcg Capsule, 1000 MCG PO DAILY 12/25/17 Cholecalciferol (Vitamin D3) (VITAMIN D3) 1,000 Unit Tablet, 1000 UNIT PO DAILY , TAB 12/25/17 Ascorbic Acid (VITAMIN C) 500 Mg Tablet, 1000 MG PO DAILY, TAB 12/25/17 Natalizumab (TYSABRI) 300 Mg/15 Ml Injs, 300 MG IV [id number] 10/07/13 Omeprazole Magnesium (Prilosec Otc) 20 Mg Tablet.dr, 40 MG PO QDAY, 0 Refills 07/04/11 Hx Smoking: Yes Smoking Status: Current: Every Day Smoker Exposure to Second Hand Smoke?: Yes Hx Substance Use Disorder: No Hx Alcohol Use: Yes (a couple times per week) Constitutional Vital Sign - Last 24 Hours 02/19/18 02/19/18 20:11 21:31 Temp 99.2 99.0 Pulse 95 75 Resp 18 18 B/P (MAP) 139/80 131/85 (100) Pulse Ox 96 96 O2 Delivery Room Air Room Air Physical Exam General Appearance: The patient is alert, has no immediate need for airway protection and no signs of toxicity. Vital signs stable, afebrile, pulse ox normal Eyes: Pupils equal and round no pallor or injection. ENT, Mouth: Mucous membranes are moist. Respiratory: There are no retractions, lungs are clear to auscultation. No wheezing or rails Cardiovascular: Regular rate and rhythm. Gastrointestinal: Abdomen is soft and non tender, no masses, bowel sounds normal. No CVA tenderness Skin: Warm and dry, no rashes. Musculoskeletal: Neck is supple non tender. No lymphadenopathy Extremities are nontender, nonswollen and have full range of motion. DIFFERENTIAL DIAGNOSIS: After history and physical exam differential diagnosis was considered for hemoptysis, bronchitis, pulmonary embolism, pneumonia, epistaxis, urinary tract infection Medical Decision Making Data Points Laboratory Hematology Test 02/19/18 20:39 Urine Color Yellow Urine Clarity Cloudy Urine pH 6.0 pH (4.8-9.5) Urine Specific [place] 1.011 Urine Protein Negative mg/dL (NEGATIVE) Urine Glucose (UA) Negative mg/dL (NEGATIVE) Urine Ketones Negative mg/dL (NEGATIVE) Urine Blood Large (NEGATIVE) Urine Nitrite Positive (NEGATIVE) Urine Bilirubin Negative (NEGATIVE) Urine Urobilinogen 4.0 mg/dL (0.2-1.9) Urine Leukocyte Esterase Moderate (NEGATIVE) Urine RBC 87 /HPF (0-2/HPF) Urine WBC 112 /HPF (0-5/HPF) Urine WBC Clumps Few /HPF Urine Squamous Epithelial Cells Few /LPF (NONE-FEW) Urine Amorphous Crystals Few /HPF Urine Bacteria Many /HPF (NONE-FEW) Urine Mucus None /HPF (NONE-FEW) Chemistry Test 02/19/18 20:39 Urine Color Yellow Urine Clarity Cloudy Urine pH 6.0 pH (4.8-9.5) Urine Specific [place] 1.011 Urine Protein Negative mg/dL (NEGATIVE) Urine Glucose (UA) Negative mg/dL (NEGATIVE) Urine Ketones Negative mg/dL (NEGATIVE) Urine Blood Large (NEGATIVE) Urine Nitrite Positive (NEGATIVE) Urine Bilirubin Negative (NEGATIVE) Urine Urobilinogen 4.0 mg/dL (0.2-1.9) Urine Leukocyte Esterase Moderate (NEGATIVE) Urine RBC 87 /HPF (0-2/HPF) Urine WBC 112 /HPF (0-5/HPF) Urine WBC Clumps Few /HPF Urine Squamous Epithelial Cells Few /LPF (NONE-FEW) Urine Amorphous Crystals Few /HPF Urine Bacteria Many /HPF (NONE-FEW) Urine Mucus None /HPF (NONE-FEW) Urinalysis Test 02/19/18 20:39 Urine Color Yellow Urine Clarity Cloudy Urine pH 6.0 pH (4.8-9.5) Urine Specific [place] 1.011 Urine Protein Negative mg/dL (NEGATIVE) Urine Glucose (UA) Negative mg/dL (NEGATIVE) Urine Ketones Negative mg/dL (NEGATIVE) Urine Blood Large (NEGATIVE) Urine Nitrite Positive (NEGATIVE) Urine Bilirubin Negative (NEGATIVE) Urine Urobilinogen 4.0 mg/dL (0.2-1.9) Urine Leukocyte Esterase Moderate (NEGATIVE) Urine RBC 87 /HPF (0-2/HPF) Urine WBC 112 /HPF (0-5/HPF) Urine WBC Clumps Few /HPF Urine Squamous Epithelial Cells Few /LPF (NONE-FEW) Urine Amorphous Crystals Few /HPF Urine Bacteria Many /HPF (NONE-FEW) Urine Mucus None /HPF (NONE-FEW) EKG/Imaging Imaging X-ray: Two-view chest x-ray was obtained. I viewed the images myself on the PACS system. My interpretation of the images is: No infiltrate, no effusion, normal mediastinum, elevated right hemidiaphragm compared to previous chest x- ray dated 12/26/17, no significant change. The radiologist interpretation had no clinically significant variation from this interpretation. ED Course/Re-evaluation ED Course Patient was admitted to an examination room. H&P was done. The differential diagnoses was considered. On conical examination. Patient has normal vital signs. He's had some hemoptysis of blood-streaked sputum. He is not on any blood thinners. Chest x-ray shows no obvious changes or findings. I do not think the patient is a pulmonary embolism. Patient gives us a urinary specimen with self catheter. It shows gross infection. A urinary cultures ordered. Patient be covered with Levaquin for both respiratory and urinary infection. He 's advised to follow-up with his primary care for further diagnostic evaluation. Should he continue to have hemoptysis. He will need bronchoscopy. Decision to Disposition Date: Feb 19, 2018 Decision to Disposition Time: 20:50 Depart Departure Latest Vital Signs Vital Signs Date Time Temp Pulse Resp B/P (MAP) Pulse Ox O2 Delivery O2 Flow Rate FiO2 02/19/18 21:31 99.0 75 18 131/85 (100) 96 Room Air Impression: Primary Impression: Hemoptysis, unspecified Additional Impressions: Urinary tract infection Multiple sclerosis Condition: Improved Disposition: HOME OR SELF-CARE Referrals: CHRISTIAN RAMÍREZ MD (PCP) New Scripts Levofloxacin 500 Mg Tab (LEVAQUIN 500 MG TAB) 500 Mg Tablet 500 MG PO DAILY for infection, #6 TAB Prov: MANOLO BERNARDO DO 02/19/18 Patient Instructions: Hemoptysis (ED), Urinary Tract Infection in Men (ED) Additional Instructions: Follow-up with primary care if unimproved in 3-5 days Problem Qualifiers Additional Impressions: Urinary tract infection Urinary tract infection type: acute cystitis Hematuria presence: without hematuria Qualified Codes: N30.00 - Acute cystitis without hematuria MANOLO BERNARDO DO Feb 19, 2018 20:48
[2018-02-19] MEDS ORDERED: LEVO-85 PO (20:52)
[2018-02-19] MEDS ORDERED: LEVOFLOXACIN 500 MG TAB PO ONE (21:10)
[2018-02-19 21:31] VITALS: BP 131/85
--- NOTE | 2018-02-19 21:39 | RADIOLOGY IMAGING REPORT ---
FACILITY: [facility] - [place] PATIENT NAME: Mark Schmidt : 1965 MR: [id number] V: [id number] EXAM DATE: ORDERING PHYSICIAN: MANOLO BERNARDO TECHNOLOGIST: Location: [facility] - [place] Patient: Mark Schmidt : 1965 Visit/Account:[id number] Date of Sevice: 02/19/2018 CHEST PA AND LAT Additional pertinent History: Hemoptysis COMPARISON STUDIES: Comparison made to a PA and lateral chest from 04/07/2016 FINDINGS: Support lines and catheters: None Lungs and Pleura: Asymmetric elevation right hemidiaphragm extending to the right infrahilar region. Areas of atelectasis seen in the right lower lung. Apparent prominent right vascular pedicle en face . Lateral film demonstrates increased parenchymal opacity overlying the T5 vertebral body partially o bscuring detail. Difficult to determine if this possibly represents a compression fracture or an over lying adjacent parenchymal opacity. Heart and vasculature: Negative. Suni and Mediastinum: Negative. Bones and Chest wall: See above. Upper Abdomen: Negative. IMPRESSION: 1. When compared to the previous chest x-ray there is an increased parenchymal opacity overlying the T5 vertebral body on the lateral film. In the context of hemoptysis, I would recommend a CT scan for complete evaluation. Report Dictated By: Vahe Reeder MD at 02/19/2018 9:26 PM Report E-Signed By: Vahe Reeder MD at 02/19/2018 9:34 PM WSN:[id number]
== END 2018-02-19 21:31 | disposition home or self-care (01) ==
LOC: ER 20:48
DX: R04.2 Hemoptysis (principal); N30.00 Acute cystitis without hematuria; G35 Multiple sclerosis; F17.210 Nicotine dependence, cigarettes, uncomplicated
CPT/HCPCS: 71046; 81001; 87088; 99283; A4338; 87077; 87186

== ENCOUNTER 2018-04-26 10:30 | Outpatient (RCR) | payer BC ==
[2017-12-28 19:13] VITALS: BMI 32.9
--- NOTE | 2018-02-11 18:51 | PT INITIAL EVALUATION ---
MEDICAL DIAGNOSIS: s/p Surgical I&D of pressure ulcer to L) lateral and plantar heel TREATMENT DIAGNOSIS: same DATE OF ONSET: chronic non-healing wound SUBJECTIVE: Chronic worsening pressure ulcer at L) lateral and plantar heel. Pt underwent surgical debridement with Dr. Sandoval and was placed on a wound vac to assist in granulation to fill in void with intent of delayed primary closure. Pt arrives for visit with wound vac on and functioning properly. Pt notes that [facility] nurse changed the dressing on Sunday02/01/18 as planned, however, pt later had problems with maintaining a seal and his B) LE's had dramatic increased in edema, potentially creating friction with the original drape and causing a stretch, which lost the seal. Pt notes that he changed to a traditional dressing on Sunday evening (unsure of how long the wound vac was not functioning properly). [facility] nurse then arrived to change the dressing and place a new wound vac dressing on Sunday02/04/18, one day earlier than anticipated. Pt now arrives with a longer period since previous dressing change and continued increased edema with dependent positioning while in W/C. Redness noted at lateral foot from irritation with drape pulling on edematous skin. Odor also noted upon removal of dressing and blue/green coloration noted on drainage in cansiter of wound vac. REHAB PROBLEM LIST: Open wound and complications with wound vac to L) heel pressure ulcer; limited pt compliance with off loading. 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 Periwound area is irritated, and excoriated as well. Lateral wound measures: 2.5cm L x 2cm W x 0.3cm D Plantar wound measures: 2.5cm L x 2.5cm W x 0.3cm D. Mobility: W/C bound with squat pivot transfers Gait: Non-ambulatory ASSESSMENT: Wound initially concerning for risk of infection due to history of non-functioning vac over the weekend and redness noted at lateral ankle, likely related to irritation of skin from edema stretching the drape. Odor noted upon removal of drape, but also due most likely to dressing being on longer than anticipated prior to this dressing change. Finally, drainage in canister with blue/green coloration potentially related to colonization in canister, as canister has not been changed since prior hospitalization. Wound cleansed thoroughly with antimicrobial wound cleanser and wound bed treated with silver collagen matrix product as an additional antimicrobial property. Skin prep and marathon utilized to protect the periwound skin and underlayer of drape also applied. Black granufoam cut to fit two separate wound openings and bolster of black granufoam placed in contact with both site. Good seal obtained with drape and trac pad positioned properly. Settings remain the same with continuous suction at 110mmHg. Plan to increase frequency of dressing change to three times weekly to minimize risk of infection and monitor more closely. Short Term Goals 1. Pt to maintain seal and suction of wound vac and report any malfunction to wound care team immediately 2. Wound beds to demo 100% granulation with no signs or symptoms of infection 3. Wound to gradually close with re-epithelialization from the edges inward over healthy tissue, with full wound closure. 4. Pt to demo increased compliance with off-loading heel and elevating LE's with heels floated to optimize chance of healing. Patient's Goals Wounds to close without further complication and decreased impact on his daily activities. PLAN: Patient to be seen for non-excisional, selective debridement of wounds and wound vac dressing change to optimize wound healing. 3x/Week for up to 3 months Thank you for this referral. If you have any questions, comments, or concerns about this report or plan, please contact me at . H. Mariella Zurita, PT, MPT [facility]
[~2018-04-26 10:30] MED LIST changes: -CLON-298 PO; +CLON-331 PO
--- NOTE | 2018-05-03 15:17 | PT PLAN OF CARE ---
Physician: Dr. Sandoval Patient is being seen: Mark Schmidt Therapist: Colleen Alfonso PT, DPT Medical Diagnosis: s/p Surgical I&D of pressure ulcer to L) lateral and plantar heel Treatment Diagnosis: same Date of Onset: Chronic, Non-healing wound Date of Initial Evaluation: 02/08/18 Date patient was last seen: 04/26/18 Number of treatments: 18 Number of cancellations/No shows: 0 INTERVENTIONS: The patient was seen for skilled PT wound care to include conservative, selective sharps debridement as well as wound vac dressing changes and advanced wound care product selection and application. GOALS: 1. Pt to maintain seal and suction of wound vac and report any malfunction to wound care team immediately (met) 2. Wound beds to demo 100% granulation with no signs or symptoms of infection (met) 3. Wound to gradually close with re-epithelialization from the edges inward over healthy tissue, with full wound closure. (met) 4. Pt to demo increased compliance with off-loading heel and elevating LE's with heels floated to optimize chance of healing. (met) PATIENT'S GOAL: Wounds to close without further complication and decreased impact on his daily activities. Status of Patient's Goals: Met Patient Compliance: Good Prognosis: Good Reasons for continuing therapy: None at this time. Pt was seen by Dr. Quesada on 04/30/18 and discharged from his services d/t complete epithelization of all wounds. No further PT wound care indicated at this time. Thank you for this referral. If you have any questions, comments, or concerns about this report or plan, please contact me at . Colleen Alfonso, PT, DPT [facility]
== END 2018-04-26 18:00 | disposition home or self-care (01) ==
LOC: PT 10:30
PROVIDERS: ATTEND Surgery
DX: L89.623 Pressure ulcer of left heel, stage 3 (principal); R60.0 Localized edema; G35 Multiple sclerosis; Z99.3 Dependence on wheelchair
CPT/HCPCS: 97161; 97162; 97605

== ENCOUNTER → 2018-06-19 | Outpatient (CLI) | payer BC ==
[2017-12-28 19:13] VITALS: BMI 32.9
[~2018-06-19] MED LIST changes: +ROPI5TAB20 PO
--- NOTE | 2018-06-19 16:30 | RADIOLOGY IMAGING REPORT ---
FACILITY: [facility] - [place] PATIENT NAME: Mark Schmidt : 1965 MR: [id number] V: [id number] EXAM DATE: ORDERING PHYSICIAN: CHRISTIAN RAMÍREZ TECHNOLOGIST: Location: [facility] - [place] Patient: Mark Schmidt : 1965 Visit/Account:[id number] Date of Sevice: 06/19/2018 CHEST PA AND LAT INDICATION: Chronic cough COMPARISON: 02/19/2018 FINDINGS: Heart size within normal limits. Compared to the prior examination, the infiltrate within the posterior aspect of the right upper lobe has significantly improved. There is an area of focal scarring now present. There is stable elevation of the right hemidiaphragm IMPRESSION: 1. Since prior examination, the infiltrate seen on prior study has resolved with the right upper lob e with subsequent development of area of scarring Report Dictated By: Anders Soto at 06/19/2018 4:24 PM Report E-Signed By: Anders Soto at 06/19/2018 4:25 PM [id number]:[email or web address]
== END ==
LOC: RAD 15:19
PROVIDERS: ATTEND Family Medicine
DX: R05 Cough (principal)
CPT/HCPCS: 71046